=== PATIENT | female | born 1960 | race Caucasian/White ===

== ENCOUNTER 2017-06-10 11:44 | Emergency (ER) | payer OTHER ==
[~2017-06-10] VITALS: Ht 175.3 cm; Wt 179.2 kg
[~2017-06-10 11:44] MED LIST: ACTOS45 MG PO; ALLOPURINOL100 MG PO; ALLOPURINOL300 MG PO; AMARYL4 MG PO; CLARITIN10 MG PO; CONTRAVE ER 8-1 EACH PO; DICLOFENAC SODI75 MG PO; FENOFIBRATE160 MG PO; FLUOXETINE HCL20 MG PO; FLUTICASONE PRO16 GM NS; FUROSEMIDE80 MG PO; KRILL OIL 3001 EACH PO; LEVOTHYROXINE175 MCG PO; LEVOTHYROXINE200 MCG PO; LINZESS290 MCG PO; LISINOPRIL-HCT1 EACH PO; LYRICA50 MG PO; OMEPRAZOLE20 MG PO; OXYBUTYNIN CHLO10 MG PO; OXYCODONE-ACET1 EAC1 PO; PIOGLITAZONE HC45 MG PO; PIROXICAM20 MG PO; POTASSIUM CHLO20 ME1 PO; POTASSIUM GLUC500 GM MISC; SIMVASTATIN20 MG PO; SIMVASTATIN40 MG PO; TRAMADOL HCL50 MG PO; VITAMIN B-12250 MCG PO; VITAMIN D-32000 UNI1 PO; VYVANSE30 MG PO; XARELTO10 MG PO
--- OUTSIDE RECORDS SUMMARY | 2017-06-10 11:59 | XMS | Clinical Summary ---
Demographics + + + | Address | [address] | | | [place] [address] | + + + | Home Phone | | + + + | Preferred Language | Unknown | + + + | Marital Status | Single | + + + | Quaker Affiliation | Unknown | + + + | Race | White | + + + | Ethnic Group | Unknown | + + + Author + + + | Author | [facility] | + + + | Organization | [facility] | + + + | Address | Unknown | + + + | Phone | Unavailable | + + + Care Team Providers + +------+ + | Care Medical Assistant Per Diem Name | Role | Phone | + +------+ + PP | Unavailable | + +------+ + Allergies + + + +--------+ + | Active Allergy | Reactions | Severity | Noted | Comments | | | | | Date | | + + + +--------+ + | Codeine | | | | | + + + +--------+ + | Hydrocodone-Acetamin | | | | | | ophen | | | | | + + + +--------+ + Current Medications Not on file Active Problems + + + | Problem | Noted Date | + + + | Unspecified sleep apnea | 05/17/2007 | + + + + + | Overview: CPAP 10yr. 17cc | + + + + + | Morbid obesity (HCC) | 05/16/2007 | + + + | Unspecified essential hypertension | 05/16/2007 | + + + | Edema | 05/16/2007 | + + + | Unspecified asthma(493.90) | 05/16/2007 | + + + | COPD | 05/16/2007 | + + + | Unspecified chronic bronchitis (HCC) | 05/16/2007 | + + + | Esophageal reflux | 05/16/2007 | + + + | Arthropathy, unspecified, site unspecified | 05/16/2007 | + + + | Backache, unspecified | 05/16/2007 | + + + | Unspecified hypothyroidism | 05/16/2007 | + + + | Other disorders of lipoid metabolism | 05/16/2007 | + + + | Depressive disorder, not elsewhere classified | 05/16/2007 | + + + | Attention deficit disorder without mention of hyperactivity | 05/16/2007 | + + + Social History + +-------+ +--------+------+ | Tobacco Use | Types | Packs/Day | Years | Date | | | | | Used | | + +-------+ +--------+------+ | Never Assessed | | | | | + +-------+ +--------+------+ + + + | Sex Assigned at | Date Recorded | | | | + + + | Not on file | | + + + Plan of Treatment + + + + + | Health Maintenance | Due Date | Last Done | Comments | + + + + + | Hep C Ab Screening | | | | | | 0 | | | + + + + + | HIV Screening | | | | | | 5 | | | + + + + + | Pneumo 19-64 Medium | | | | | Risk (1 of 1 - | 9 | | | | PPSV23) | | | | + + + + + | Tetanus | | | | | | 9 | | | + + + + + | Cervical Cancer | | | | | Screening | 1 | | | + + + + + | Breast Cancer | | | | | Screening | 0 | | | + + + + + | Colon Cancer | | | | | Screening | 0 | | | + + + + + | Diabetes Mellitus | | 05/16/2007, 05/16/2007 | | | Screening | 1 | | | + + + + + | IMM Influenza (#1) | | | | | | 7 | | | + + + + + Results Not on filefrom Last 3 Months"
--- OUTSIDE RECORDS SUMMARY | 2017-06-10 11:59 | XMS | Clinical Summary ---
Demographics + + + | Address | [address] | | | [place] [address] | + + + | Home Phone | | + + + | Preferred Language | Unknown | + + + | Marital Status | Single | + + + | Alevism Affiliation | Unknown | + + + [...] Team Providers + +------+ + | Care Biophysics Scientist Name | Role | Phone | + [...]
[2017-06-10] MEDS ORDERED: VENTOLIN HFA18 GM INH (13:06)
[2017-06-10] MEDS ORDERED: ALBUTEROL2.5 MG/3 M INH (13:06)
[2017-06-10] MEDS ORDERED: AUGMENTIN 875-1 EACH PO (13:21)
[2017-06-10] MEDS ORDERED: METHYLPREDNISOLO4 M1 PO (13:21)
== END 2017-06-10 13:30 | disposition home or self-care (01) ==
LOC: ED 11:44
DX: J44.1 Chronic obstructive pulmonary disease with (acute) exacerbation (principal); N28.9 Disorder of kidney and ureter, unspecified; I10 Essential (primary) hypertension; E11.9 Type 2 diabetes mellitus without complications; K21.9 Gastro-esophageal reflux disease without esophagitis; E03.9 Hypothyroidism, unspecified; Z87.891 Personal history of nicotine dependence; Z88.5 Allergy status to narcotic agent; Z88.8 Allergy status to other drugs, medicaments and biological substances; Z79.899 Other long term (current) drug therapy
CPT/HCPCS: 71045; 80053; 85025; 87502; 94640; 96374; 99283; J2930

== ENCOUNTER 2017-08-10 12:27 | Emergency (ER) | payer OTHER ==
[~2017-08-10] VITALS: Ht 175.3 cm; Wt 181.4 kg
--- OUTSIDE RECORDS SUMMARY | ~2017-08-10 | XMS | Clinical Summary ---
Demographics + + + | Address | [address] | | | [place] [address] | + + + | Home Phone | | + + + | Preferred Language | Unknown | + + + | Marital Status | Single | + + + | Congregational Affiliation | 1041 | + + + | Race | Unknown | + + + | Ethnic Group | Unknown | + + + Author + + + | Author | [facility] | | | and [place] | + + + | Organization | [facility] | | | and [place] | + + + | Address | Unknown | + + + | Phone | Unavailable | + + + Support + + +---------+ + | Name | Relationship | Address | Phone | + + +---------+ + | Grace Avalos | [place] | Unknown | | + + +---------+ + Care Team Providers + +------+ + | Care Gun Stocker Name | Role | Phone | + +------+ + | Brett Olivarez DO | PP | | + +------+ + Allergies + + + + + + | Active Allergy | Reactions | Severity | Noted | Comments | | | | | Date | | + + + + + + | Benzonatate | Itching | Low | 01/07/20 | | | | | | 16 | | + + + + + + | Codeine | Itching | Low | 10/15/19 | | | | | | 16 | | + + + + + + | Hydrocodone | Itching, Anxiety | Low | 10/15/19 | | | | | | 16 | | + + + + + + Current Medications + + +-------+---------+------+------+-------+ | Prescription | Sig. | Disp. | Refills | Star | End | Statu | | | | | | t | Date | s | | | | | | Date | | | + + +-------+---------+------+------+-------+ | CONTRAVE 8-90 MG | Take 2 tablets by | | 3 | 06/0 | | Activ | | per ER tablet | mouth 2 times daily. | | | 08/29 | | e | | | | | | 16 | | | + + +-------+---------+------+------+-------+ | fenofibrate | Take 160 mg by mouth | | 11 | 05/2 | | Activ | | (LOFIBRA, TRIGLIDE) | Daily. | | | 220 | | e | | 160 mg tablet | | | | 16 | | | + + +-------+---------+------+------+-------+ | FLUoxetine | Take 80 mg by mouth | | 3 | 05/2 | | Activ | | (PROZAC) 20 mg | Daily. | | | 05/01 | | e | | capsule | | | | 16 | | | + + +-------+---------+------+------+-------+ | allopurinol | Take 300 mg by mouth | | 10 | 06/0 | | Activ | | (ZYLOPRIM) 300 mg | Daily. | | | 10/29 | | e | | tablet | | | | 16 | | | + + +-------+---------+------+------+-------+ | pioglitazone | Take 45 mg by mouth | | 11 | 06/0 | | Activ | | (ACTOS) 45 mg tablet | Daily. | | | 07/30 | | e | | | | | | 16 | | | + + +-------+---------+------+------+-------+ | simvastatin | Take 40 mg by mouth | | 12 | 06/0 | | Activ | | (ZOCOR) 40 mg tablet | nightly. | | | 4/20 | | e | | | | | | 16 | | | + + +-------+---------+------+------+-------+ | LINZESS 290 MCG | Take 290 mcg by | | 12 | 09/10 | | Activ | | capsule | mouth. Every other | | | 2/20 | | e | | | day | | | 16 | | | + + +-------+---------+------+------+-------+ | FREESTYLE LITE | | | 12 | 05/2 | | Activ | | strip | | | | 20 | | e | | | | | | 16 | | | + + +-------+---------+------+------+-------+ | VENTOLIN HFA 108 | Inhale 2 puffs into | | 11 | 06/2 | | Activ | | (90 BASE) MCG/ACT | the lungs every 6 | | | 6/20 | | e | | inhaler | hours as needed. | | | 16 | | | + + +-------+---------+------+------+-------+ | B Complex-C (SUPER | Take by mouth | | | | | Activ | | B COMPLEX PO) | Daily. | | | | | e | + + +-------+---------+------+------+-------+ | cholecalciferol | Take 6,000 Units by | | | | | Activ | | (VITAMIN D-3) 2,000 | mouth Daily. | | | | | e | | units capsule | | | | | | | + + +-------+---------+------+------+-------+ | Potassium | Take 595 mg by mouth | | | | | Activ | | Gluconate 595 MG | Daily. | | | | | e | | TABS | | | | | | | + + +-------+---------+------+------+-------+ | OMEGA-3 KRILL OIL | Take 1,000 mg by | | | | | Activ | | PO | mouth Daily. | | | | | e | + + +-------+---------+------+------+-------+ | ascorbic acid | Take 500 mg by mouth | | | | | Activ | | (VITAMIN C) 500 mg | Daily. | | | | | e | | tablet | | | | | | | + + +-------+---------+------+------+-------+ | furosemide (LASIX) | Take 80 mg by mouth | | | | | Activ | | 80 mg tablet | Daily. | | | | | e | + + +-------+---------+------+------+-------+ | Omeprazole | Take 20 mg by mouth | | | | | Activ | | Magnesium (PRILOSEC | Daily. | | | | | e | | OTC PO) | | | | | | | + + +-------+---------+------+------+-------+ | VYVANSE 30 MG | take 1 capsule by | | 0 | 08/3 | | Activ | | capsule | mouth once daily | | | 05/01 | | e | | | | | | 16 | | | + + +-------+---------+------+------+-------+ | | Take 1 tablet by | | | 12/11 | | Activ | | lisinopril-hydrochlo | mouth Daily. | | | 020 | | e | | rothiazide | | | | 16 | | | | (PRINZIDE,ZESTORETIC | | | | | | | | ) 20-12.5 MG per | | | | | | | | tablet | | | | | | | + + +-------+---------+------+------+-------+ | oxygen | Inhale 2 L into the | | | | | Activ | | | lungs nightly. | | | | | e | + + +-------+---------+------+------+-------+ | LORazepam (ATIVAN) | | | 3 | 10/2 | | Activ | | 1 mg tablet | | | | 0/20 | | e | | | | | | 16 | | | + + +-------+---------+------+------+-------+ | piroxicam | Take 20 mg by mouth | | | | | Activ | | (FELDENE) 20 MG | Daily. | | | | | e | | capsule | | | | | | | + + +-------+---------+------+------+-------+ | | | | 3 | 11/1 | | Activ | | nystatin-triamcinolo | | | | 7/20 | | e | | ne (MYCOLOG II) | | | | 16 | | | | cream | | | | | | | + + +-------+---------+------+------+-------+ | levothyroxine | | | 4 | 08/0 | | Activ | | (SYNTHROID) 150 mcg | | | | 1/20 | | e | | tablet | | | | 17 | | | + + +-------+---------+------+------+-------+ | folic acid 1 mg | | | 4 | 08/0 | | Activ | | tablet | | | | 1/20 | | e | | | | | | 17 | | | + + +-------+---------+------+------+-------+ Active Problems + + + | Problem | Noted Date | + + + | Status post right hip replacement | 01/08/2016 | + + + | Primary osteoarthritis of right hip | 01/08/2016 | + + + | H/O DOYLE Total hip arthroplasty, left - 2008 | 01/07/2016 | + + + | H/O Hysterectomy | 01/07/2016 | + + + | Class II, BMI 35-39 | 01/07/2016 | + + + | Metabolic syndrome X | 01/07/2016 | + + + | Gout | 01/07/2016 | + + + | Diabetes mellitus, type II - ORAL Control | 01/07/2016 | + + + | GERD (gastroesophageal reflux disease) | 01/07/2016 | + + + | H/O Anemia | 01/07/2016 | + + + | H/O Fracture of left shoulder | 01/07/2016 | + + + | H/O Sleep apnea | 01/07/2016 | + + + | Hypothyroid | 12/24/2015 | + + + | Pure hypercholesterolemia | 12/24/2015 | + + + | Hypertension | | + + + | Asthma | | + + + | COPD (chronic obstructive pulmonary disease) (HCC) | | + + + Immunizations + + + + | Name | Dates Previously Given | Next Due | + + + + | PNEUMOCOCCAL | 01/09/2016 | | | POLYSACCHARIDE | | | | 23-VALENT (PPSV23) | | | + + + + Social History + + + +--------+ + | Tobacco Use | Types | Packs/Day | Years | Date | | | | | Used | | + + + +--------+ + | Former Smoker | Cigarettes | | 39 | Quit: 10/09/2015 | + + + +--------+ + + +---+---+---+ | Smokeless Tobacco: | | | | | Never Used | | | | + +---+---+---+ + + +---------+ + | Alcohol Use | Drinks/We | oz/Week | Comments | | | ek | | | + + +---------+ + | No | 0 | 0.0 | | | | Standard | | | | | drinks or | | | | | | | | | | equivalen | | | | | t | | | + + +---------+ + + + + | Sex Assigned at | Date Recorded | | | | + + + | Not on file | | + + + Last Filed Vital Signs + + + + | Vital Sign | Reading | Time Taken | + + + + | Blood Pressure | 128/57 | 01/10/2016809 PDT | + + + + | Pulse | 69 | 01/10/2016809 PDT | + + + + | Temperature | 36 C (96.8 F) | 12/03/2016 1344 PDT | + + + + | Respiratory Rate | 16 | 01/10/2016809 PDT | + + + + | Oxygen Saturation | 93% | 01/10/2016809 PDT | + + + + | Inhaled Oxygen | - | - | | Concentration | | | + + + + | Weight | 125.2 kg (276 lb) | 12/03/20161343 PDT | + + + + | Height | 177.8 cm (5' 10") | 12/03/20161343 PDT | + + + + | Body Mass Index | 39.6 | 12/03/20161343 PDT | + + + + Plan of Treatment + + + + + | Health Maintenance | Due Date | Last Done | Comments | + + + + + | Hepatitis C | | | | | Screening | 0 | | | + + + + + | Diabetic Eye Exam | | | | | (Bi-Annually) | 8 | | | + + + + + | Diabetic Foot Exam | | | | | | 8 | | | + + + + + | Hemoglobin A1c Q3 | | | | | Months | 8 | | | + + + + + | Vaccine: | | | | | Dtap/Tdap/Td (1 - | 9 | | | | Tdap) | | | | + + + + + | BREAST CANCER | | | | | SCREENING (MAMM Q2 | 0 | | | | YEARS 50-74) | | | | + + + + + | COLON CANCER | | | | | SCREENING | 0 | | | | (COLONOSCOPY EVERY | | | | | 10 YEARS 50-75) | | | | + + + + + | Vaccine: Influenza | | | | | (Season Ended) | 8 | | | + + + + + | Vaccine: | Completed | 01/09/2016 | | | Pneumococcal 19-64 | | | | | (PPSV23 only) Medium | | | | | Risk | | | | + + + + + Implants + +--------+--------+ +--------+--------+--------+ | Implanted | Type | Area | Manufacture | Device | Expira | Model | | | | | r | | tion | / | | | | | | Identi | Date | Serial | | | | | | fier | | / Lot | + +--------+--------+ +--------+--------+--------+ | Imp Hip Lnr Dbl Mob Hx 28x50 | Generi | Right: | [employer] | | 07/07/ | 01.26. | | - [id number]: Qty: 1 | c | Hip | INC - MDTA | | 2020 | 2850MH | | on 01/08/2016 by Lj, | | | | | | C / | | Feroz Sprague MD | | | | | | /[id number] | | | | | | | | 1 | + +--------+--------+ +--------+--------+--------+ | Imp Stem Std Amis Lira 03/25 | Generi | Right: | [employer] | | 03/24/ | 01.18. | | Sz6 - [id number]: | c | Hip | INC - MDTA | | 2019 | 136 / | | Qty: 1 on 01/08/2016 by | | | | | | /[id number] | | Feroz aClhoun MD | | | | | | 2 | + +--------+--------+ +--------+--------+--------+ | Imp Hip Fem Hd Ceram 28mm Szs | Generi | Right: | [employer] | | 11/29/ | 01.29. | | - [id number]: Qty: 1 | c | Hip | INC - MDTA | | 2019 | 201 / | | on 01/08/2016 by Lj, | | | | | | /[id number] | | Feroz Sprague MD | | | | | | 0 | + +--------+--------+ +--------+--------+--------+ | Liner Dme Implanted: Qty: 1 | | Right: | [employer] | | 06/22/ | 32. | | on 01/08/2016 by Lj, | | Hip | INC - MDTA | | 2020 | 150MB | | Feroz Sprague MD | | | | | | / | | | | | | | | /[id number] | | | | | | | | B | + +--------+--------+ +--------+--------+--------+ Results Not on filefrom Last 3 Months Insurance + +--------+ +--------+ +---------+ | Payer | Benefi | Subscriber | Type | Phone | Address | | | t Plan | ID | | | | | | / | | | | | | | Group | | | | | + +--------+ +--------+ +---------+ | [employer] | MODA | [phone] | Medica | [phone] | | MEDICAID HMO | HEALTH | | id | 9821 | | | | MDCD | | | | | | | [place] | | | | | + +--------+ +--------+ +---------+ + +--------+ +--------+ + + | Guarantor Name | Accoun | Relation to | Date | Phone | Billing Address | | | t Type | Patient | of | | | | | | | | | | + +--------+ +--------+ + + | JAYLYN AVALOS | Person | Self [birth year] Home: | [address] | | [place] | [place] | | 1961 | [phone] | [place] | | | [place] | | | [phone] | + +--------+ +--------+ + +
--- OUTSIDE RECORDS SUMMARY | ~2017-08-10 | XMS | Clinical Summary ---
Demographics + + + | Address | [address] | | | [place] [address] | + + + | Home Phone | | + + + | Preferred Language | Unknown | + + + | Marital Status | Single | + + + | Druze Affiliation | 1041 | + + + | Race | Unknown | + + + | Ethnic Group | Unknown | + + + Author + + + | Author | [facility] | | | and [place] | + + + | Organization | [facility] | | | and [place] | [...] Team Providers + +------+ + | Care Filer And Sander Name | Role | Phone | + [...] | 07/07/ | 01.26. | | - [id number]: Qty: 1 | c | Hip | INC - MDTA | | 2020 | 2850MH | | on 01/08/2016 by Lj, | | | | | | C / | | Feroz Sprague MD | | | | | | /[id number] | | | | | | | | 1 | + +--------+--------+ +--------+--------+--------+ | Imp Stem Std Amis Lira 03/25 | Generi | Right: | [employer] | | 03/24/ | 01.18. | | Sz6 - [id number]: | c | Hip | INC - MDTA | | 2019 | 136 / | | Qty: 1 on 01/08/2016 by | | | | | | /[id number] | | Feroz Calhoun MD | | | | | | 2 | + +--------+--------+ +--------+--------+--------+ | Imp Hip Fem Hd Ceram 28mm Szs | Generi | Right: | [employer] | | 11/29/ | 01.29. | | - [id number]: Qty: 1 | c | Hip | INC - MDTA | | 2019 | 201 / | | on 01/08/2016 by Lj, | | | | | | /[id number] | | Feroz Sprague MD | | [...] | | | | | | | /[id number] | | | | | | | [...] | MODA | [phone] | Medica | [phone] | | | MEDICAID HMO | HEALTH [...] | | 1961 | [phone] | [place] | | | [place] | | | [phone] | [phone] | + +--------+ +--------+ + +
[~2017-08-10 12:27] MED LIST changes: +ALBUTEROL2.5 MG/3 M INH; +AUGMENTIN 875-1 EACH PO; +METHYLPREDNISOLO4 M1 PO; +VENTOLIN HFA18 GM INH
== END 2017-08-10 14:05 | disposition home or self-care (01) ==
LOC: ED 12:27
DX: I87.8 Other specified disorders of veins (principal); E11.9 Type 2 diabetes mellitus without complications; J44.9 Chronic obstructive pulmonary disease, unspecified; K21.9 Gastro-esophageal reflux disease without esophagitis; E03.9 Hypothyroidism, unspecified; Z79.899 Other long term (current) drug therapy; Z87.891 Personal history of nicotine dependence; Z88.5 Allergy status to narcotic agent; Z88.8 Allergy status to other drugs, medicaments and biological substances
CPT/HCPCS: 71045; 99283

== ENCOUNTER 2017-08-18 16:09 | Emergency (ER) | payer OTHER ==
[~2017-08-18] VITALS: Ht 175.3 cm; Wt 181.4 kg
[2017-08-18] MEDS ORDERED: CONTRAVE ER 8-1 EACH PO (16:22)
[2017-08-18] MEDS ORDERED: LIOTHYRONINE S25 MCG PO (16:24)
[2017-08-18] MEDS ORDERED: ULTRAM50 MG PO (16:25)
[2017-08-18] MEDS ORDERED: FOLIC ACID1 MG PO (16:26)
[2017-08-18] MEDS ORDERED: ZESTORETIC 20-1 EACH PO (16:26)
== END 2017-08-18 16:33 | disposition home or self-care (01) ==
LOC: ED 16:09
DX: M79.675 Pain in left toe(s) (principal)

== ENCOUNTER 2017-11-19 12:25 | Emergency (ER) | payer OTHER ==
[~2017-11-19] VITALS: Ht 175.3 cm; Wt 186.9 kg
[~2017-11-19 12:25] MED LIST changes: +FOLIC ACID1 MG PO; +LIOTHYRONINE S25 MCG PO; +ULTRAM50 MG PO; +ZESTORETIC 20-1 EACH PO
[2017-11-19] MEDS ORDERED: ZITHROMAX250 MG PO (14:46)
[2017-11-19] MEDS ORDERED: PREDNISONE20 MG PO (14:47)
--- NOTE | 2017-11-20 19:47 | EKG ---
[facility] [address] [place] [address] Signed Poor data quality, interpretation may be adversely affected Sinus tachycardia Abnormal ECG No previous ECGs available Confirmed by JI NELSON MD ([id number]) on 11/20/2017 7:46:52 PM Electronically Signed By: JI NELSON MD 11/20/17 1947 PATIENT NAME: ELIZABETH ESTRELLA Electrocardiogram DATE OF : 58 PHYSICIAN: JI NELSON MD REPORT #: [id number] REPORT IS CONFIDENTIAL AND NOT TO BE RELEASED WITHOUT AUTHORIZATION
== END 2017-11-19 15:02 | disposition home or self-care (01) ==
LOC: ED 12:25
DX: J44.1 Chronic obstructive pulmonary disease with (acute) exacerbation (principal); I10 Essential (primary) hypertension; E11.9 Type 2 diabetes mellitus without complications; E03.9 Hypothyroidism, unspecified; Z87.891 Personal history of nicotine dependence; Z88.5 Allergy status to narcotic agent; Z88.8 Allergy status to other drugs, medicaments and biological substances; Z79.899 Other long term (current) drug therapy
CPT/HCPCS: 71045; 80053; 82803; 84484; 85025; 85379; 93005; 93010; 94640; 96365; 96375; 99285; J0456; J2930

== ENCOUNTER 2018-06-11 14:59 | Emergency (ER) | payer OTHER ==
[~2018-06-11] VITALS: Ht 175.3 cm; Wt 186.9 kg
[~2018-06-11 14:59] MED LIST changes: +PREDNISONE20 MG PO; +ZITHROMAX250 MG PO
--- OUTSIDE RECORDS SUMMARY | 2018-06-11 15:02 | XMS ---
PreManage Notification: ELIZABETH ESTRELLA Security Scaffold Builder Events No recent Security Events currently on file CRITERIA MET - Group Notification - [facility] - Has Care Guidelines - PDMP CARE PROVIDERS QUINN PATRICIO Family Medicine: Sports Medicine 12/08/2017-Current PHONE: Unknown Cristina has no Care Guidelines for this patient. Care History Medical/Surgical 12/08/2017 [facility] HISTORY:\T\nbsp; COPD/ IRRITABLE BOWEL/ ARTHRITIS/ HTN/ DM2/ GERD/ PERICARDITIS/ HYPOTHYROID E.D. VISIT COUNT (12 MO.) 4 [facility] TOTAL 4 NOTE: Visits indicate total known visits. ED/UCC VISIT TRACKING (12 MO.) 06/11/2018 15:01 [facility] TYPE: Emergency COMPLAINT: - FALL 11/19/2017 12:26 [facility] TYPE: Emergency COMPLAINT: - SOB DIAGNOSES: - Other terminal makeup operator (current) drug therapy - Essential (primary) hypertension - Type 2 diabetes mellitus without complications - Chronic obstructive pulmonary disease with (acute) exacerbation - Allergy status to narcotic agent status - Shortness of breath - Hypothyroidism, unspecified - Personal history of nicotine dependence - Allergy status to other drugs, medicaments and biological substances status 08/18/2017 16:09 [facility] TYPE: Emergency COMPLAINT: - TOE NAIL PROBLEM DIAGNOSES: - Pain in left toe(s) 08/10/2017 12:[address] [facility] [place] TYPE: Emergency COMPLAINT: - L R LEG SWELLING DIAGNOSES: - Hypothyroidism, unspecified - Other care home (current) drug therapy - Gastro-esophageal reflux disease without esophagitis - Type 2 diabetes mellitus without complications - Allergy status to other drugs, medicaments and biological substances status - Other specified soft tissue disorders - Chronic obstructive pulmonary disease, unspecified - Personal history of nicotine dependence - Other specified disorders of veins - Allergy status to narcotic agent status INPATIENT VISIT TRACKING (12 MO.) No inpatient visits to display in this time frame [email or web address]
--- NOTE | 2018-06-12 10:47 | CONS ---
[facility] [address] [place], [place] [address] Signed DATE OF CONSULTATION: 06/11/2018 HISTORY OF PRESENT ILLNESS: Ms. Avalos is a 57-year-old white female, who was doing well until about 2 this afternoon when she had a ground level fall. She had immediate onset of pain in the right shoulder, came to the emergency room where a dislocated shoulder was diagnosed by x-ray. Orthopedic consultation was requested to assist in closed reduction. After explaining the proposed procedure to the patient, she was comfortable with proceeding. The patient was gently sedated by the Anesthesia Service. Once we appeared to have an adequate level of sedation, we were able to reduce the shoulder fairly easily with longitudinal traction, external and medial rotation. She was placed in a sling and a single AP x-ray was taken, which confirmed a concentric reduction with no apparent fractures. She could be discharged to home. She should wear the sling and follow up in 2-3 weeks with the orthopedic clinic. MD LURDES Banda/MARTIL /[id number] Copies: ~ Electronically Signed By: MICHEL DALAL MD 06/12/18 1047 PATIENT NAME: ELIZABETH AVALOS CONSULTATION DATE OF : 58 REPORT #: [id number] PHYSICIAN: MICHEL DALAL MD PCP: QUINN PATRICIO DO REPORT IS CONFIDENTIAL AND NOT TO BE RELEASED WITHOUT AUTHORIZATION
== END 2018-06-11 17:51 | disposition home or self-care (01) ==
LOC: ED 14:59
PROC: 0RSJXZZ Reposition Right Shoulder Joint, External Approach (ICD-10-PCS; principal; 2018-06-11)
DX: S43.014A Anterior dislocation of right humerus, initial encounter (principal); J44.9 Chronic obstructive pulmonary disease, unspecified; I10 Essential (primary) hypertension; E11.9 Type 2 diabetes mellitus without complications; K21.9 Gastro-esophageal reflux disease without esophagitis; E03.9 Hypothyroidism, unspecified; Z90.710 Acquired absence of both cervix and uterus; Z88.5 Allergy status to narcotic agent; Z88.8 Allergy status to other drugs, medicaments and biological substances; Z79.899 Other long term (current) drug therapy; W00.1XXA Fall from stairs and steps due to ice and snow, initial encounter
CPT/HCPCS: 23650; 73020; 73030; 73060; 99156; 99157; 99283-25; J1170; J2250; J2405; J2704

== ENCOUNTER 2020-02-25 20:32 | Emergency (ER) | payer OTHER ==
[~2020-02-25] VITALS: Ht 175.3 cm; Wt 174.6 kg
--- OUTSIDE RECORDS SUMMARY | 2020-02-25 20:34 | XMS ---
PreManage Notification: ELIZABETH ESTRELLA Security Automobile Salesman Events No recent Security Events currently on file CRITERIA MET - Group Notification - PDMP - [facility] - 2 Visits in 30 Days CARE PROVIDERS ROBERT AGUILAR Internal Medicine 06/13/2018-Current PHONE: [phone] QUINN PATRICIO Family Medicine: Sports Medicine 12/08/2017-Current PHONE: Unknown Cristina has no Care Guidelines for this patient. Care History Medical/Surgical 06/13/2018 [facility] - Patient is currently established with [facility]. If patient is seen in the ED during business hours. Please contact CHWs at [facility]. Care Recommendation: This patient has had 5 or more Emergency Department visits in the last 12 months.\T\nbsp; Patient requires education on the scope and purpose of the ED as an acute care provider not a Primary Care Provider and should not be utilized for chronic conditions.\T\nbsp; These are guidelines and the provider should exercise clinical judgment when providing care. 12/08/2017 [facility] HISTORY:\T\nbsp; COPD/ IRRITABLE BOWEL/ ARTHRITIS/ HTN/ DM2/ GERD/ PERICARDITIS/ HYPOTHYROID E.DHyun VISIT COUNT (12 MO.) 2 [facility] TOTAL 2 NOTE: Visits indicate total known visits. ED/UCC VISIT TRACKING (12 MO.) 02/25/2020 20:32 [facility] TYPE: Emergency COMPLAINT: - ABD PAIN 02/25/2020 16:16 [facility] TYPE: Emergency COMPLAINT: - CONSTIPATION INPATIENT VISIT TRACKING (12 MO.) No inpatient visits to display in this time frame [email or web address]
[2020-02-25] MEDS ORDERED: VICTOZA 3-0.6 MG/0.1 SUB-Q (20:40)
[2020-02-25] MEDS ORDERED: LINZESS290 MCG PO (21:50)
== END 2020-02-25 21:57 | disposition home or self-care (01) ==
LOC: ED 20:32
DX: K59.00 Constipation, unspecified (principal); I10 Essential (primary) hypertension; E11.9 Type 2 diabetes mellitus without complications; K21.9 Gastro-esophageal reflux disease without esophagitis; E03.9 Hypothyroidism, unspecified; Z88.5 Allergy status to narcotic agent; Z88.8 Allergy status to other drugs, medicaments and biological substances; Z79.899 Other long term (current) drug therapy
CPT/HCPCS: 99283

== ENCOUNTER 2020-07-26 13:08 | Emergency (ER) | payer OTHER ==
[~2020-07-26] VITALS: Ht 175.3 cm; Wt 174.6 kg
[~2020-07-26 13:08] MED LIST changes: +VICTOZA 3-0.6 MG/0.1 SUB-Q
--- OUTSIDE RECORDS SUMMARY | 2020-07-26 13:12 | XMS ---
PreManage Notification: ELIZABETH ESTRELLA Security Clay Structure Builder And Servicer Events No recent Security Events currently on file CRITERIA MET - Group Notification - PDMP CARE PROVIDERS ROBERT AGUILAR Internal Medicine 06/13/2018-Current PHONE: [phone] QUINN PATRICIO Family Medicine: Sports Medicine 12/08/2017-Current PHONE: Unknown Cristina has no Care Guidelines for this patient. Care History Medical/Surgical 06/13/2018 [facility] - Patient is currently established with [facility]. If patient is seen in the ED during business hours. Please contact CHWs at [facility]. Care Recommendation: This patient has had 5 or more Emergency Department visits in the last 12 months.\T\nbsp; Patient requires education on the scope and purpose of the ED as an acute care provider not a Primary Care Provider and should not be utilized for chronic conditions.\T\nbsp; These are guidelines and the provider should exercise clinical judgment when providing care. 12/08/2017 [facility] HISTORY:\T\nbsp; COPD/ IRRITABLE BOWEL/ ARTHRITIS/ HTN/ DM2/ GERD/ PERICARDITIS/ HYPOTHYROID E.DHyun VISIT COUNT (12 MO.) 3 [facility] TOTAL 3 NOTE: Visits indicate total known visits. ED/UCC VISIT TRACKING (12 MO.) 07/26/2020 13:09 [facility] TYPE: Emergency COMPLAINT: - ALLERGIC REATION 02/25/2020 20:32 [facility] TYPE: Emergency COMPLAINT: - ABD PAIN DIAGNOSES: - Constipation, unspecified - Allergy status to narcotic agent - Allergy status to other drugs, medicaments and biological substances - Allergy status to other drugs, medicaments and biological substances - Allergy status to narcotic agent - Hypothyroidism, unspecified - Gastro-esophageal reflux disease without esophagitis - Type 2 diabetes mellitus without complications - Other terminal gauger (current) drug therapy - Essential (primary) hypertension 02/25/2020 16:16 [facility] TYPE: Emergency COMPLAINT: - CONSTIPATION INPATIENT VISIT TRACKING (12 MO.) No inpatient visits to display in this time frame [email or web address]
[2020-07-26] MEDS ORDERED: LATUDA40 MG PO (13:33)
[2020-07-26] MEDS ORDERED: CYMBALTA30 MG PO (13:33)
[2020-07-26] MEDS ORDERED: EPIN0.3P IM (15:56)
== END 2020-07-26 16:14 | disposition home or self-care (01) ==
LOC: ED 13:08
DX: T78.3XXA Angioneurotic edema, initial encounter (principal); K14.8 Other diseases of tongue; J44.9 Chronic obstructive pulmonary disease, unspecified; I10 Essential (primary) hypertension; E11.9 Type 2 diabetes mellitus without complications; K21.9 Gastro-esophageal reflux disease without esophagitis; E03.9 Hypothyroidism, unspecified; F17.200 Nicotine dependence, unspecified, uncomplicated; Z88.8 Allergy status to other drugs, medicaments and biological substances; Z88.5 Allergy status to narcotic agent; Z79.899 Other long term (current) drug therapy
CPT/HCPCS: 96374; 99284-25

== ENCOUNTER 2020-12-21 05:18 | Emergency (ER) | payer OTHER ==
[~2020-12-21] VITALS: Ht 175.3 cm; Wt 177.3 kg
[~2020-12-21 05:18] MED LIST changes: +ADVAIR HFA 230-12 GM INH; +CEFPODOXIME PR200 MG PO; +CYMBALTA30 MG PO; +EPIN0.3P IM; +LATUDA40 MG PO; +LEVOTHYROXINE300 MCG PO; +LIOTHYRONINE SO5 MCG PO; +METOPROLOL SUC100 MG PO; +MONTELUKAST SOD10 MG PO; -OMEPRAZOLE20 MG PO; +PIOGLITAZONE HC15 MG PO; -POTASSIUM GLUC500 GM MISC; +POTASSIUM99 M1 PO; +PRAVASTATIN SOD10 MG PO; +PRILOSEC OTC20 MG PO; +PROZAC40 MG PO; +SPIRIVA18 MCG INH; -VITAMIN D-32000 UNI1 PO; +VITAMIN D350 MC3 PO; +VYVANSE60 MG PO
--- OUTSIDE RECORDS SUMMARY | 2020-12-21 05:55 | XMS ---
PreManage Notification: ELIZABETH ESTRELLA Security Signal Worker Events No recent Security Events currently on file CRITERIA MET - Group Notification - PDMP CARE PROVIDERS ROBERT AGUILAR Internal Medicine 07/29/2020-Current PHONE: [phone] QUINN PATRICIO Family Medicine: Sports Medicine 12/08/2017-Current PHONE: [phone] Cristina has no Care Guidelines for this patient. Care History Medical/Surgical 06/13/2018 [facility] - Patient is currently established with [facility]. If patient is seen in the ED during business hours. Please contact CHWs at [facility]. Care Recommendation: This patient has had 5 or more Emergency Department visits in the last 12 months.\T\nbsp; Patient requires education on the scope and purpose of the ED as an acute care provider not a Primary Care Provider and should not be utilized for chronic conditions.\T\nbsp; These are guidelines and the provider should exercise clinical judgment when providing care. 12/08/2017 [facility] HISTORY:\T\nbsp; COPD/ IRRITABLE BOWEL/ ARTHRITIS/ HTN/ DM2/ GERD/ PERICARDITIS/ HYPOTHYROID E.D. VISIT COUNT (12 MO.) 5 [facility] TOTAL 5 NOTE: Visits indicate total known visits. ED/UCC VISIT TRACKING (12 MO.) 12/21/2020 05:19 [facility] [place] TYPE: Emergency COMPLAINT: - LT HIP PAIN 08/05/2020 11:[facility] [place] TYPE: Emergency COMPLAINT: - DIFFICULTY BREATHING 07/26/2020 13:09 [facility] [place] TYPE: Emergency COMPLAINT: - ALLERGIC REATION DIAGNOSES: - Other terminal superintendent (current) drug therapy - Type 2 diabetes mellitus without complications - Allergy status to narcotic agent - Angioneurotic edema, initial encounter - Chronic obstructive pulmonary disease, unspecified - Gastro-esophageal reflux disease without esophagitis - Nicotine dependence, unspecified, uncomplicated - Other diseases of tongue - Hypothyroidism, unspecified - Essential (primary) hypertension - Allergy status to other drugs, medicaments and biological substances 02/25/2020 20:32 [facility] [place] TYPE: Emergency [...] 2 diabetes mellitus without complications - Other fdc (current) drug therapy - Essential (primary) hypertension 02/25/2020 16:16 [facility] [place] TYPE: Emergency COMPLAINT: - CONSTIPATION INPATIENT VISIT TRACKING (12 MO.) 08/05/2020 14:22 [facility] [place] TYPE: Medical Surgical COMPLAINT: - COPD DIAGNOSES: - Attention-deficit hyperactivity disorder, unspecified type - Chronic obstructive pulmonary disease with (acute) exacerbation - Other terminal superintendent (current) drug therapy - Allergy status to other drugs, medicaments and biological substances - Hypothyroidism, unspecified - Hypertensive heart disease with heart failure - Interstitial pulmonary disease, unspecified - Unspecified mood [affective] disorder - Chronic diastolic (congestive) heart failure - Pulmonary hypertension, unspecified - Type 2 diabetes mellitus without complications - group home (current) use of oral hypoglycemic drugs - Allergy status to narcotic agent - Acute and chronic respiratory failure with hypoxia - Hyperuricemia without signs of inflammatory arthritis and tophaceous disease [email or web address]
[2020-12-21] MEDS ORDERED: PERCOCET 7.5-31 EACH PO (08:27)
== END 2020-12-21 10:35 | disposition home or self-care (01) ==
LOC: ED 05:18
PROC: 0SWB0JZ Revision of Synthetic Substitute in Left Hip Joint, Open Approach (ICD-10-PCS; principal; 2020-12-21)
DX: T84.021A Dislocation of internal left hip prosthesis, initial encounter (principal); J44.9 Chronic obstructive pulmonary disease, unspecified; M16.0 Bilateral primary osteoarthritis of hip; I10 Essential (primary) hypertension; E11.9 Type 2 diabetes mellitus without complications; K21.9 Gastro-esophageal reflux disease without esophagitis; J45.909 Unspecified asthma, uncomplicated; E03.9 Hypothyroidism, unspecified; I31.9 Disease of pericardium, unspecified; G47.30 Sleep apnea, unspecified; F17.200 Nicotine dependence, unspecified, uncomplicated; Z88.5 Allergy status to narcotic agent; Z88.8 Allergy status to other drugs, medicaments and biological substances; Z79.84 Long term (current) use of oral hypoglycemic drugs; Z79.810 Long term (current) use of selective estrogen receptor modulators (SERMs); Z79.899 Other long term (current) drug therapy
CPT/HCPCS: 27265; 71045; 73501; 73502; 80053; 85025; 99152; 99153; 99284-25; J2704; U0003

== ENCOUNTER 2020-12-22 15:12 | Emergency (ER) | payer OTHER ==
[~2020-12-22] VITALS: Ht 175.3 cm; Wt 177.3 kg
[~2020-12-22 15:12] MED LIST changes: +PERCOCET 7.5-31 EACH PO
--- OUTSIDE RECORDS SUMMARY | 2020-12-22 15:14 | XMS ---
PreManage Notification: ELIZABETH ESTRELLA Security Contact Center Rep Events No recent Security Events currently on file CRITERIA MET - [facility] - 2 Visits in 30 Days - Group Notification - PDMP CARE PROVIDERS ROBERT AGUILAR Internal Medicine 07/29/2020-Current PHONE: [phone] QUINN PATRICIO Family Medicine: Sports Medicine 12/08/2017-Current PHONE: [phone] Cristina has no Care Guidelines for this patient. Care History Medical/Surgical 06/13/2018 [facility] - Patient is currently established with [facility]. If patient is seen in the ED during business hours. Please contact CHWs at [facility]. Care Recommendation: This patient has had 5 or more Emergency Department visits in the last 12 months.\T\nbsp; Patient requires education on the scope and purpose of the ED as an acute care provider not a Primary Care Provider and should not be utilized for chronic conditions.\T\nbsp; These are guidelines and the provider should exercise clinical judgment when providing care. 12/08/2017 [facility] HISTORY:\T\nbsp; COPD/ IRRITABLE BOWEL/ ARTHRITIS/ HTN/ DM2/ GERD/ PERICARDITIS/ HYPOTHYROID [facility] NOTE: Visits indicate total known visits. ED/UCC VISIT TRACKING (12 MO.) 12/22/2020 15:13 [facility] [place] TYPE: Emergency COMPLAINT: - L HIP PAIN 12/21/2020 05:19 [facility] [place] TYPE: Emergency COMPLAINT: - LT HIP PAIN 08/05/2020 11:21 [facility] [place] TYPE: Emergency COMPLAINT: - DIFFICULTY BREATHING 07/26/2020 13:09 [facility] [place] TYPE: Emergency COMPLAINT: - ALLERGIC REATION DIAGNOSES: - Other terminal press operator (current) drug therapy - Type 2 diabetes [...] 2 diabetes mellitus without complications - Other group home (current) drug therapy - Essential (primary) hypertension 02/25/2020 16:16 [facility] [place] TYPE: Emergency COMPLAINT: - CONSTIPATION INPATIENT VISIT TRACKING (12 MO.) 08/05/2020 14:22 [facility] [place] TYPE: Medical Surgical COMPLAINT: - COPD DIAGNOSES: - Attention-deficit hyperactivity disorder, unspecified type - Chronic obstructive pulmonary disease with (acute) exacerbation - Other terminal press operator (current) drug therapy - Allergy status to other drugs, medicaments and biological substances - Hypothyroidism, unspecified - Hypertensive heart disease with heart failure - Interstitial pulmonary disease, unspecified - Unspecified mood [affective] disorder - Chronic diastolic (congestive) heart failure - Pulmonary hypertension, unspecified - Type 2 diabetes mellitus without complications - assisted (current) use of oral hypoglycemic drugs - Allergy status to narcotic agent - Acute and chronic respiratory failure with hypoxia - Hyperuricemia without signs of inflammatory arthritis and tophaceous disease [email or web address]
--- NOTE | 2020-12-23 15:20 | EKG ---
[facility] [address] [place], [place] [address] Signed Normal sinus rhythm Low voltage QRS Borderline ECG When compared with ECG of 05-AUG-2020 15:44, No significant change was found Confirmed by CHARITO ECKERT MD ([id number]) on 12/23/2020 3:20:09 PM Electronically Signed By: CHARITO ECKERT MD 12/23/20 1520 PATIENT NAME: ELIZABETH ESTRELLA Electrocardiogram DATE OF : 58 PHYSICIAN: CHARITO ECKERT MD REPORT #: [id number] REPORT IS CONFIDENTIAL AND NOT TO BE RELEASED WITHOUT AUTHORIZATION
== END 2020-12-23 09:12 | disposition short-term general hospital (02) ==
LOC: ED 15:12
DX: M24.452 Recurrent dislocation, left hip (principal); Z20.822 Contact with and (suspected) exposure to COVID-19; J44.9 Chronic obstructive pulmonary disease, unspecified; I10 Essential (primary) hypertension; E11.9 Type 2 diabetes mellitus without complications; K21.9 Gastro-esophageal reflux disease without esophagitis; E03.9 Hypothyroidism, unspecified; G47.30 Sleep apnea, unspecified; F17.200 Nicotine dependence, unspecified, uncomplicated; Z88.8 Allergy status to other drugs, medicaments and biological substances; Z88.5 Allergy status to narcotic agent; Z79.899 Other long term (current) drug therapy
CPT/HCPCS: 27265; 51702; 72170; 73501; 80053; 85025; 85610; 85730; 93005; 93010; 99152; 99153; 99285-25; C9803; J1170; J2250; J2704; U0003

== ENCOUNTER 2021-08-22 07:45 | Day surgery (SDC) | payer OTHER ==
[~2021-08-22] VITALS: Ht 175.3 cm; Wt 175.0 kg
[~2021-08-22 07:45] MED LIST changes: +NORVASC5 MG PO
--- NOTE | 2021-08-22 08:45 | NUR ---
AUSCULTATED PATIENT LUNGS NOTED EXPIRATORY WHEEZES AND DIMINISHED BASES WITH CRACKLES RONALDO. PATIENT STATES " I DON'T FEEL LIKE I AM SHORT OF BREATH" PATIENT REPORTED USING ADVAIR DISCUS YESTERDAY, HOWEVER NOT SURE ABOUT TIMES FOR OTHER INHALERS. PATIENT REPORTS USING 3L AT NIGHT WITH BIPAP. REPORTED FINDINGS TO OR CHARGE NURSE, WHO ALERTED KEVIN LEGAL AID. PROVIDED PATIENT WITH IS, PATIENT ABLE TO HOLD TO 700 LEVEL, ENCOURAGED COUGHING AND DEEP BREATHING. NOTED OXYGEN LEVEL INCREASED FROM 89% ON ROOM AIR TO 91% ROOM AIR.
--- NOTE | 2021-08-22 09:25 | NUR ---
STARTED ALBUTEROL BREATHING TREATEMENT ON PATIENT, PATIENT VERBALIZED UNDERSTANDING. KEVIN INTO ROOM TO ASSESS. DR. ORTEGA INTO ROOM.
--- NOTE | 2021-08-22 10:21 | NUR ---
08/22/21 1021 Manjula Yin 1010 PT ARRIVED TO PACU ON 6L VIA MASK, PT ASLEEP AND VSS. 1017 PT WAKE EASILY TO VERBAL STIMULI AND DENIES PAIN AND NAUSEA. ICE PACK PLACED ON SURGICAL SITE. O2 REMOVED AND PT MOVED HERSELF UP IN BED AND PLAN OF CARE DISCUSSED.
--- NOTE | 2021-08-23 06:53 | OR ---
[facility] [address] [place], [place] [address] Signed DATE OF OPERATION: 08/22/2021 SURGEON: Selwyn Ortega MD PREOPERATIVE DIAGNOSIS: Nonhealing left occipital scalp lesion. POSTOPERATIVE DIAGNOSIS: Nonhealing left occipital scalp lesion. PROCEDURE: Excision of left occipital scalp lesion (15 mm x 40 mm). ESTIMATED BLOOD LOSS: None. FINDINGS: Jaylyn appears to have a chronic nonhealing area from her CPAP mask. There was hair and granulation tissue reminiscent of hidradenitis. INDICATIONS: Jaylyn is a 60-year-old obese diabetic female, who has hypoventilatory syndrome. She has to wear CPAP mask at night and lies on her side. She has developed lesion somewhat in the center and a little bit off to the left on the occipital scalp area. She thinks it has been there about a month. However, I think it has been much longer. She had been to her primary care provider. She was started on cephalexin. She told me she does not think it is any better after the antibiotics. It does weep on her CPAP mask strap. She was asked to see me expeditiously in the office. She came with her caregiver in her wheelchair because she can only ambulate very short distances. Otherwise, she has dyspnea on exertion and shortness of breath. In the office, we could see this transverse scalp lesion in the fold of her skin on the nape of her neck. There appears to be some chronic scarring as well as some hair and probably granulation tissue. I explained to Jaylyn to try to remove in the office. We decided to do it over in the operating room under monitored anesthesia care with local anesthetic. She understands we will use an elliptical transverse incision to remove that full-thickness and it will be sent off to the pathology department. The wound will be closed primarily. She understands there is risk including, but not limited to bleeding, infection, scarring, change in contour of the skin as well as possible need for additional surgeries or treatments based on pathology results. She had expressed understanding and wished to proceed. Electronically Signed By: SELWYN ORTEGA MD 08/23/21 0653 PATIENT NAME: JAYLYN ESTRELLA OPERATIVE REPORT DATE OF : 58 REPORT #: [id number] PHYSICIAN: SELWYN ORTEGA MD PCP: ROBERT AGUILAR DO REPORT IS CONFIDENTIAL AND NOT TO BE RELEASED WITHOUT AUTHORIZATION [facility] [address] [place] [id number] Signed DESCRIPTION OF PROCEDURE: I met with Jaylyn in our preop area and we were able to easily identify the lesion and marked it appropriately. She did require a breathing treatment before going back to our OR. After this, we took her into the operating room and placed her in the right lateral decubitus position with appropriate padding and monitoring. She was given preoperative antibiotics along with subcutaneous heparin. SCDs were utilized. She had been prepped and draped in the usual sterile fashion. She was given monitored anesthesia care per our nurse planetarium technician. I injected local anesthetic around and underneath the lesion. We then used a transverse elliptical incision to excise this area of full thickness. We came through the area with the cautery and we found that there was quite a bit of granulation tissue underneath the skin on the right side of that incision. That was all excised back to healthy adipose tissue. This is very reminiscent of hidradenitis. Again, it all appears to be associated with her BiPAP mask strap. We used several interrupted 3-0 subcuticular Monocryl sutures to bring the dermis back together. We then used interrupted 2-0 nylon vertical mattress sutures to bring the rest of the incision together and give it some strength. She was moving around and shifting her weight on the table. We wanted to proceed along in an expeditious fashion. We did not apply any ointment or gauze dressing. We rotated her into her supine position onto her hospital bed and took her into recovery room in stable condition. Selwyn Ortega MD ALB/MODL /[id number] cc: DO Selwyn Wise MD Copies: ROBERT AGUILAR ANDREW L MD ~ Electronically Signed By: SELWYN ORTEGA MD 08/23/21 0653 PATIENT NAME: JAYLYN ESTRELLA OPERATIVE REPORT DATE OF : 58 REPORT #: [id number] PHYSICIAN: SELWYN ORTEGA MD PCP: ROBERT AGUILAR DO REPORT IS CONFIDENTIAL AND NOT TO BE RELEASED WITHOUT AUTHORIZATION
--- NOTE | 2021-08-28 08:34 | PATH ---
[facility] [address] [facility] [place], [place] [address] Signed SPECIMEN(S): A LEFT OCCIPITAL SCALP LESION SPECIMEN SOURCE: A. LEFT OCCIPITAL SCALP LESION CLINICAL HISTORY: Excision of left occipital scalp lesion. FINAL PATHOLOGIC DIAGNOSIS: Skin, left occipital scalp, excision: - Reactive epidermal changes with focal ulceration and associated dermal mixed acute and chronic inflammation. - No evidence of malignancy. - Pending dermatopathology consultation, See Comment. COMMENT: This will be sent for a dermatopathology consultation and the results reported in an addendum. The epidermis shows spongiosis and changes suggestive of chronic irritation/lichen simplex chronicus, hyperkeratosis and irregular acanthosis. Centrally within these changes is an epidermal ulcer. The dermis has dense lymphoplasmacytic inflammation and scattered acute inflammation. Focal polarizable foreign material is in the dermis with associated giant cells. A PAS/D stain is negative for fungal organisms. The findings could be secondary to infectious etiologies, but given the presence of foreign material, reaction to trauma cannot be entirely excluded. NAL:cml:C2NR MICROSCOPIC EXAMINATION: Histologic sections of all submitted blocks are examined by light microscopy. These findings, together with the gross examination, support the pathologic diagnosis. A PAS/D stain was performed with appropriately staining controls. GROSS DESCRIPTION: The specimen, labeled "SD, A," and designated on the requisition "left occipital scalp lesion," is received in formalin and consists of a two unoriented skin fragments; one irregular ellipse measuring 4.0 x 1.3 x 1.7 cm and irregular shaped skin measuring 2.4 x 0.4 x 0.7 cm. The cutaneous surface of the larger elliptical fragment contains a 1.7 x 0.8 x 0.3 PATIENT NAME: ELIZABETH ESTRELLA PATHOLOGY DATE OF : 58 REPORT #: [id number] PHYSICIAN: CM PATHOLOGY PCP: ROBERT AGUILAR DO REPORT IS CONFIDENTIAL AND NOT TO BE RELEASED WITHOUT AUTHORIZATION [facility] [address] [place] [address] Signed cm, off-center, jasso-pink nodule with adjacent linear ulceration measuring less than 0.1 cm to the nearest margin. The specimen is inked blue and serially sectioned. The cutaneous surface of the second fragment is jasso and smooth with no visible lesions. Specimen is inked black and serially sectioned. Specimen is entirely submitted as follows: A1-A4: First elliptical fragment (submitted sequentially) A5-A6: Second skin fragment (submitted sequentially) AT (under the direct supervision of a pathologist) The Gross Description was prepared using a voice recognition system. The report was reviewed for accuracy; however, sound-alike word errors, addition and/or deletions may occur. If there is any question about this report, please contact Client Services. PERFORMING LABORATORY: The technical component was performed by [employer] [address] (CLIA# [id number]). [facility] [address] [address] (CLIA# [id number]). Diagnostician: Saadia Mcconnell MD Pathologist Electronically Signed 08/28/2021 Copies: ~ PATIENT NAME: ELIZABETH ESTRELLA PATHOLOGY DATE OF : 58 REPORT #: [id number] PHYSICIAN: CM PATHOLOGY PCP: ROBERT AGUILAR DO REPORT IS CONFIDENTIAL AND NOT TO BE RELEASED WITHOUT AUTHORIZATION
== END 2021-08-22 11:00 | disposition home or self-care (01) ==
LOC: DS 07:45
PROVIDERS: ATTEND Colon & Rectal Surgery
PROC: 0HB0XZZ Excision of Scalp Skin, External Approach (ICD-10-PCS; principal; 2021-08-22 08:45)
DX: L98.9 Disorder of the skin and subcutaneous tissue, unspecified (principal); I12.9 Hypertensive chronic kidney disease with stage 1 through stage 4 chronic kidney disease, or unspecified chronic kidney disease; E11.22 Type 2 diabetes mellitus with diabetic chronic kidney disease; N18.2 Chronic kidney disease, stage 2 (mild); K21.9 Gastro-esophageal reflux disease without esophagitis; E03.9 Hypothyroidism, unspecified; E78.5 Hyperlipidemia, unspecified; M19.90 Unspecified osteoarthritis, unspecified site; M10.9 Gout, unspecified; E66.2 Morbid (severe) obesity with alveolar hypoventilation; Z68.43 Body mass index [BMI] 50.0-59.9, adult; Z87.891 Personal history of nicotine dependence
CPT/HCPCS: 00300; J0690; J1100; J1644; J1885; J2001; J2405; J2704; J7121

== ENCOUNTER 2022-08-20 13:41 | Inpatient (IN) | payer OTHER ==
[~2022-08-20] VITALS: Ht 175.3 cm; Wt 177.0 kg
--- OUTSIDE RECORDS SUMMARY | 2022-08-20 13:44 | XMS ---
PreManage Notification: ELIZABETH ESTRELLA Security Patient Financial Rep Events No recent Security Events currently on file CRITERIA MET - Group Notification - PDMP CARE PROVIDERS -[place]- Dentist: Millinery Copyist [facility] PHONE: [phone] LEANN ARREOLA Physical Medicine \T\ Rehabilitation Current PHONE: [phone] ANGEL MOORE Physician Performance Improvement Specialist Current PHONE: Unknown ROBERT AGUILAR Internal Medicine 07/29/2020-Current PHONE: Unknown SHENG ONEAL [facility] 12/08/2017-Current PHONE: Unknown Care Guidelines exist for the following facilities: [facility] ( 12/23/2020 ) Care History Medical/Surgical 06/13/2018 [facility] - Patient is currently established with [facility]. If patient is seen in the ED during business hours. Please contact CHWs at [facility]. Care Recommendation: This patient has had 5 or more Emergency Department visits in the last 12 months.\T\nbsp; Patient requires education on the scope and purpose of the ED as an acute care provider not a Primary Care Provider and should not be utilized for chronic conditions.\T\nbsp; These are guidelines and the provider should exercise clinical judgment when providing care. 12/08/2017 [facility] HISTORY:\T\nbsp; COPD/ IRRITABLE BOWEL/ ARTHRITIS/ HTN/ DM2/ GERD/ PERICARDITIS/ HYPOTHYROID E.D. VISIT COUNT (12 MO.) 1 HAILE Guerrero TOTAL 1 NOTE: Visits indicate total known visits. ED/UCC VISIT TRACKING (12 MO.) 08/20/2022 13:42 [facility] [place] TYPE: Emergency COMPLAINT: - SHORTNESS OF BREATH INPATIENT VISIT TRACKING (12 MO.) No inpatient visits to display in this time frame [email or web address]
--- NOTE | 2022-08-20 17:10 | NUR ---
PT ARRIVES TO ROOM 127 VIA STRETCHER WITH ED RN AND STUDENT. PT ALERT AND ORIENTED. SPO2 88% ON 11L 02 VIA OXYMASK, UNABLE TO TOLERATE ANY MOVEMENT OF TRANSFER WITHOUT DESATURATION. PT DENIES PAIN OR NAUSEA. PUREWIK IN PLACE TO ACCOMADATE INABILITY TO TRANSFER TO COMMODE. 2ND RN SKIN ASSESSMENT COMPLETE AT BEDSIDE.
[2022-08-20 17:13] VITALS: BP 156/71
--- NOTE | 2022-08-20 17:30 | NUR ---
ADMISSION ASSESSMENT COMPLETE - PT PLACED ON VAPOTHERM AT 30/80%, SP02 REMAINS IN HIGH 80'S - 92% WITH DESATURATION TALKING OR MOVEMENT IN BED. DINNER PROVIDED, NO INSULIN COVERAGE NEEDED AT THIS TIME. PT STATES UNDERSTANDING OF POC, CALL LIGHT IN REACH, ALL QUESTIONS ANSWERED.
--- NOTE | 2022-08-20 17:43 | NUR ---
Set up patients home BiPAP unit. Mask was dirty and the silcone seal is loose. Family member will bring in new mask tomorrow. Pt prefers no humidity or water in the unit. Pt will need 02 bleed in with unit. She uses 4l/min at home currently but may need more at this time.
[2022-08-20 18:26] VITALS: BP 162/69
[2022-08-20 21:51] VITALS: BP 157/64
[2022-08-21] VITALS (9 sets, daily range): BP systolic 138–173; BP diastolic 59–74
--- NOTE | 2022-08-21 00:39 | NUR ---
SWITCHED PATIENT TO HOSPITAL PROVIDED BIPAP MACHINE BY RT. PATIENT IS MUCH MORE COMFORTABLE WITH MASK HOSPITAL PROVIDED. BED IN LOW POSITION, CALL LIGHT WITHIN REACH.
--- NOTE | 2022-08-21 02:51 | NUR ---
patient has requested to be pulled up in bed. comfortable with bipap mask. bed in low position. call light within reach.
--- NOTE | 2022-08-21 03:59 | NUR ---
PATIENT IS RESTING IN BED. CALL LIGHT IN REACH. BED IN LOW POSITION.
--- NOTE | 2022-08-21 07:30 | NUR ---
REPORT RECEIVED FROM NIGHT RN - PT RESTING ON SIDE WITH EYES CLOSED, BIPAP IN PLACE, NO LEAK NOTED WITH ADEQUATE TIDAL VOLUMES, SPO2 90%. NO DISTRESS NOTED. CALL LIGHT IN REACH.
--- NOTE | 2022-08-21 09:00 | NUR ---
ASSESSMENT COMPLETE, AM MEDICATIONS ADMINISTERED. PT PLACED ON VAPOTHERM TO EAT BREAKFAST, ADEQUATE SATURATION AT 30L/100%.
--- NOTE | 2022-08-21 09:00 | NUR ---
Spoke with Jaylyn. She states she lives in a house with no steps in. It is two stories and her laundry is in the basement. She gets sob on the stairs. She only goes downstairs for to do laundry. Pt uses a walker, liftchair, and 02, Bipap, and shower chair at home. She denies needs for other DME. Pt denies financial issues. She plans on returning to her home when she is cleared medically. Her brother lives next door to her. She does not feel she needs further DME or any assistance.
--- NOTE | 2022-08-21 10:00 | NUR ---
PT BED BATH COMPLETE, LINEN CHANGED. PUREWIK REPLACED WITH JAY CARE. PT TOLERATED TURNS IN SUPINE POSISTION WITHOUT SIGNIFICANT DESATURATION. PLACED ON BIPAP AT 24/15 AT 40% PER PT REQUEST. CALL LIGHT IN REACH.
--- NOTE | 2022-08-21 11:32 | NUR ---
RT IN ROOM TO PREFORM NEB TX.
[2022-08-21] MEDS ORDERED: LURASIDONE HCL80 MG PO (12:54)
[2022-08-21] MEDS ORDERED: PIOGLITAZONE HC30 MG PO (12:56)
[2022-08-21] MEDS ORDERED: AMLODIPINE BESY10 MG PO (12:57)
[2022-08-21] MEDS ORDERED: METOPROLOL SUC200 MG PO (12:58)
[2022-08-21] MEDS ORDERED: TRULICITY3 MG/0.5 M SUB-Q (13:00)
--- NOTE | 2022-08-21 13:00 | NUR ---
REPORT RECEIVED FROM FUNMILAYO DRUMMOND. AWIATING PTS ARRIVAL TO MED/SURG.
--- NOTE | 2022-08-21 13:11 | NUR ---
report given to MS FUNMILAYO Mckinnon 0 pt to trnasfer to 112
[2022-08-21] MEDS ORDERED: VYVANSE60 MG PO (13:34)
--- NOTE | 2022-08-21 13:35 | NUR ---
MED REC COMPLETE
--- NOTE | 2022-08-21 13:37 | NUR ---
PT TRANSFERED TO MED SURG ROOM 112. PT REPORTS SHE HAS BELONGINGS IN ROOM SAFE IN 127. GATHERED THESE BELONGINGS. PT AGREED THAT KEYS, BUSINESS PERFORMANCE ANALYST, AND WALLET WERE THE ONLY BELONGINGS. OFFERED TO PUT IN SAFE IN ADMITTING. PT DECLINES. VALUABLES PLACED IN GREEN BELONGING BAG INSIDE OF PREVIOUS BELONGING BAG. RT SHERRILL IN ROOM FOR CONVERSATION.
--- NOTE | 2022-08-21 13:44 | NUR ---
PT ARRIVED FROM CCU BY BED. PT HAS BIPAP IN PLACE WITH 24/15 AND 35% FIO2 SETTINGS. PT OFFERED TO TRY VAPOTHERM DURING ASSESSMENT SO SHE CAN TALK TO THE HEALTH CARE TEAM. PT DECLINES STATING SHE PERFERES THE BIPAP. BIPAP REMAINS IN PLACE WITH OXYGEN SATURATIONS ABOVE 90%. PT DENIES PAIN AND NAUSEA. PT ALERT AND OREINTED TO ALL. IV TO RIGHT HAND PAINFUL WITH FLUSH, DC'D PER PROTOCOL, GAUZE AND COBAN APPLIED. IV TO LEFT HAND FLUSHES WELL, PLACED YESTERDAY (UNABLE TO CHANGE IN CHARTING SYSTEM). FLUSHED AND SALINE LOCKED WITH ALCOHOL CAP APPLIED. PT ALERT AND OREINTED TO ALL. LUNG SOUNDS CLEAR TO ASCULATATION. NORMAL WORK OF BREATHIGN NOTED WITH BIPAP IN PLACE. RR 15-24. DISTANT HEART SOUNDS HEARD. TELEMETRY MONITORING PLACED, SINUS BRADYCARDIA CONTINUES ON MONITOR WITH RATE 50-60'S. +1 EDEMA NOTED IN BLE. PT REPORTS LEGS FEQUENTLY HAVE SWELLING. ABDOMEN SOFT AND NON TENDER. REDNESS NOTED UNDER PANNUS. MICONAZOLE POWDER ORDERED BY O. PT RESTING WITH EYES CLOSED, RESPIRATIONS EVEN AND UNLABORED. NO ADDITIONAL REQUESTS OR COMPLAINTS. BED RAILS UP. CALL LIGHT WITHIN REACH.
--- NOTE | 2022-08-21 14:26 | NUR ---
PT RESTING WITH EYES CLOSED, BIPAP VIBRATING AGAINST PTS FACE FREQUENTLY. RT TO BEDSIDE TO ADJUST MASK. PT DENIES ADDITIONAL REQUESTS OR COMPLAINTS. PT ENCORUAGED TO REST. CALL LIGHT WITHIN REACH. BED RAILS UP.
--- NOTE | 2022-08-21 15:16 | NUR ---
PTS BROTHER ARRIVED TO BEDSIDE TO VISIT. PT PLACED ON VAPOTHERAM AT 20LPM AND 70%. PT REPORTS SHE DOES NOT LIKE THE VAPTHERM BECAUSE OF THE HIGH FLOW. PT WEANED TO 15LPM AND 70% WITH OXGYEN SATURATIONS REMAININ ABOVE 92%. RT CALLED FOR HIGH FLOW NASAL CANULA, WILL ATTEMPT WALL OXGYEN ONCE NC ARRIVES. PTS BROTHER UPDATED ON PT STATUS AND PLAN OF CARE. PT AND BROTHER STATE THEIR QUESTIONS HAVE BEEN ANSWERED. EXTENSIVE EDUCATION DONE REGARDING LOW SALT DIET AND FLUID RESTRICTION RELATED TO HEART FAILURE. PT AND BROTHER VEBALIZE UNDERSTANDING. BROTHER BROUGHT PT A BAG OF CANDY. EDUCATION DONE AND PT DECIDES ON HER OWN TO SEND CANDY HOME FOR NOW. SUGAR FREE CHOCOLATE PUDDING PROVIDED AN ALTERNATIVE. PT DENIES ADDITIONAL REQUESTS OR COMPLAINTS. CALL LIGHT WITHIN REACH. BED RAILS UP. PT VISITING WITH FAMILY.
--- NOTE | 2022-08-21 15:36 | NUR ---
RT SHERRILL BROUGHT HIGH FLOW NC TO BEDSIDE PT PLACED ON 12L O2 BY HIGH FLOW NC. PT REPORTS THIS IS MUCH MORE COMFORTABLE THAN THE VAPOTHERM. PT TOELRATING WELL WITH OXGYEN SATURATIONS 90-94%. PT CONTINUES VISITING WITH HER BROTHER. NO ADDITIONAL REQUESTS OR COMPLAINTS. CALL LIGHT WITHIN REACH. BED RAILS UP.
--- NOTE | 2022-08-21 15:47 | NUR ---
PT TRANSFERED FROM CCU THIS SHIFT. PT HERE FOR HYPOXIC RESPIRATORY FAILURE RELATED TO CPOD AND CHF EXACERBATION. PT REMAINS IN BED THIS SHIFT, UNABLE TO TOLERATE ACTIVITY. BED BATH GIVEN IN CCU. PT HAS EXCELLENT APPITITE FOR 60G CARB 2G SODIUM DIET. PT HAS DIFFICULTY ADHEARING TO FLUID RESTRICTION. EDUCATION DONE. PT ALSO SEEN TO HAVE CANDY BROUGHT IN FROM HOME, EDUCATION DONE. BLOOD SUGAR CHECKS WITH MEALS AND HS WITH SLIDING SCALE INSULIN GIVEN. PT WEARNING BIPAP THIS SHIFT WITH 24/15 AND 35% FIO2. PT REPORTS SHE PERFERES BIPAP OVER VAOPTHERM. PT WEANED TO 12L HIGH FLOW NASAL CANULA WHEN HER BROTHER COMES TO VISIT AND TOELRATES WELL. SINUS BRADYCARDIA CONTINUES ON TELEMETRY MONITORING WITH HEART RATE IN 50-60'S. PURE WICK REMAINS IN PLACE. PT VOIDING QUANITTY SUFFICIENT, IV LASIX GIVEN. PT USESE CALL LIGHT AND MAKES NEEDS KNOWN.
--- NOTE | 2022-08-21 16:00 | NUR ---
PT CALL LIGHT ON. PT REPORTS SHE WOULD LIKE TO NAP AND WOULD LIKE BIPAP BACK IN PLACE. BIPAP PLACED WTIH 24/15 SETTINGS AND 35% FIO2. PT REPORTS FEELING COMFORTABLE, NO ADDITIONAL REQUESTS RO COMPLAINTS. CALL LIGHT WITHIN REACH. BED RAILS UP.
--- NOTE | 2022-08-21 17:06 | NUR ---
THIS RN TO ROOM TO CHECK ON PT. PT REPORTS SHE IS READY FOR DINNER. BLOOD SUGAR TAKEN. MEDICAITON GIVEN. PT UP TO CHAIR WITH 2 PERSON ASSIST PIVOT TO CHAIR. PT TOLEATED WELL ALTHOUGH TAKES SIGNIFICANT TIME TO MOVE. PT NEEDS 15L O2 BY NC FOR TRANSFER TO MAINTAIN OXGYEN SATURATIONS ABOVE 90%. PT WEANED BACK TO 12L O2 BY NC AFTER TRANSFER. DINNER DELIVERED. PT TALKING WITH FAMILY/FRIENDS ON THE PHONE. NO ADDITONAL NEEDS AT THIS TIME. CALL LIGHT WITHIN REACH. PURE WICK REMAINS IN PLACE.
--- NOTE | 2022-08-21 18:18 | NUR ---
PT CALL LIGHT ON. PT REQUESTS TO GET BACK TO BED AFTER DINNER. 1 PERSON ASSIST WITH FWW BACK TO BED. PT ABLE TO DO MOST OF THE TRANSFER ON HER OWN. HAS TROUBEL GETTING HER LEGS INTO BED. PT REQUESTS TO USE OXYMASK INSTEAD OF NC. PT PLACE DON OXY MASK AT 12L O2 WITH OXYGEN SATURATIONS OF 90-94%. WORK OF BREATHING WNL. PURE WICK REMAINS IN PLACE. PT DENIES PAIN AND NAUSEA. NO ADDITIONAL REQUESTS OR COMPLAINTS. CALL LIGHT WITHIN REACH. BED RAILS UP.
--- NOTE | 2022-08-21 19:05 | NUR ---
REPORT RECEIVED FROM FUNMILAYO VANN. PT LAYING IN BED WITH OXYMASK IN PLACE. PT RESPONDS WHEN ADDRESSED. PT DENIES ANY NEEDS AT THIS TIME. CALL LIGHT IN REACH.
--- NOTE | 2022-08-21 20:10 | NUR ---
IN ROOM TO ASSIST WITH VS, pt IN BED. VSS, PRIMARY RN VALE REMAINS IN ROOM TO COMPLETE EVENINGS CARES. CALL LIGHT IN REACH.
--- NOTE | 2022-08-21 20:15 | NUR ---
IN TO ADMINISTER MEDICATIONS, SEE MAR. PT TAKES PO MEDICATION WITH NO ISSUES. PT DENIES PAIN AT THIS TIME AND DENIES PRN PAIN MEDICATION WHEN OFFERED. VITALS AND I&Os COMPLETE. ASSESSMENT COMPLETE. LUNG SOUNDS CLEAR IN RUL AND ROCKY. DIMINISHED IN RLL AND LLL. BOWEL TONES ACTIVE. BRUISE NOTED TO PTs RLE, LOWER [place]. SCAB NOTED TO RIGHT [place]. PT REQUESTING BIPAP TO BE PLACED. BIPAP PLACED PER PT REQUEST. PT DENIES ANY OTHER NEEDS AT THIS TIME. CALL LIGHT IN REACH.
--- NOTE | 2022-08-21 20:39 | NUR ---
Pt requested BIPAP to be placed, and decided to wait until after RT gave breathing treatment. Notified Pt's RN. Refilled Pt's water, watching fluid restriction. No other needs expressed by Pt. Call light left in reach.
--- NOTE | 2022-08-21 21:14 | NUR ---
IN TO ANSWER CALL LIGHT. KEILA ORTIZ IN TO ASSIST PT IS REQUESTING TO BE REPOSITIONED. PILLOW PLACED UNDER PTs LEFT SIDE. PT DENIES ANY OTHER NEEDS AT THIS TIME. CALL LIGHT IN REACH.
--- NOTE | 2022-08-21 21:15 | NUR ---
Asisted RN with repositioning of Pt. Placed pillow underneath left hip. No other needs expressed by Pt. Call light left in reach.
--- NOTE | 2022-08-21 22:25 | NUR ---
IN TO ADMINISTER MEDICATIONS, SEE MAR. PT LAYING IN BED WITH EYES CLOSED. RR EVEN AND UNLABORED. PT RESPONDS WHEN ADDRESSED. REDNESS NOTED TO PANNUS. DESENEX POWDER APPLIED. URINE OUTPUT NOTED. I&Os DOCUMENTED. PT DENIES ANY OTHER NEEDS AT THIS TIME. CALL LIGHT IN REACH.
--- NOTE | 2022-08-22 | NUR ---
IN TO ANSWER CALL LIGHT. PT REQUESTING TO BE REPOSITIONED. PILLOW REMOVED FROM PTs LEFT SIDE. PT REQUESTING TO LAY ON BACK. PT REQUESTING TO BE BOOSTED IN BED. FUNMILAYO CHRISTIAN IN TO ASSIST WITH BOOSTING. PT. NEW PUREWICK IN PLACE. PT DENIES ANY OTHER NEEDS AT THIS TIME. CALL LIGHT IN REACH.
--- NOTE | 2022-08-22 00:44 | NUR ---
IN TO ROUND ON PT. PT LAYING IN BED SEMI-FOWLERS. RR EVEN AND UNLABORED. PT DENIES ANY NEEDS AT THIS TIME. CALL LIGHT IN REACH.
--- NOTE | 2022-08-22 01:46 | NUR ---
IN TO ANSWER CALL LIGHT. PT REQUESTING TO BE REPOSITIONED. PILLOW PLACED UNDER PTs RIGHT SIDE. PT DENIES ANY OTHER NEEDS AT THIS TIME. CALL LIGHT IN REACH.
--- NOTE | 2022-08-22 05:15 | NUR ---
IN TO ROUND ON PT. LAB IN ROOM. PT AWAKE IN BED. PT DENIES PAIN AT THIS TIME. VITALS AND I&Os COMPLETE. PT STATES "I THINK THE PUREWICK LEAKED." URINE NOTED TO PTs LINENS. KEILA CANALES IN TO ASSIST WITH JAY-CARE AND LINEN CHANGE. JAY CARE PROVIDED. NEW LINENS PROVIDED. CHUCKS PADS AND ATTENDS IN PLACE. NEW PUREWICK PLACED. PT BOOSTED IN BED. ASSESSMENT COMPLETE. LUNG SOUNDS CLEAR IN RUL AND ROCKY. DIMINISHED IN RLL AND LLL. BOWEL TONES ACTIVE. PT DENIES ANY OTHER NEEDS AT THIS TIME. CALL LIGHT IN REACH. BIPAP IN PLACE.
[2022-08-22 05:19] VITALS: BP 150/73
--- NOTE | 2022-08-22 07:03 | NUR ---
REPORT RECEIVED FROM FUNMILAYO COLLAZO. PT RESTING IN BED WITH EYES CLOSED. BIPAP IN PLACE. RR OF 17. SETTINGS 24/15 AND 35% FIO2. PTS OXGYEN SATURATION OF 92% ON MONITOR. TELEMETRY SHOWS SINUS BRADYCARDIA WITH RATE IN THE 60'S. PT ALLOWED TO REST UNDESTURBED. CALL LIGHT WITHIN REACH. BED RAILS UP.
--- NOTE | 2022-08-22 08:39 | NUR ---
MORNING ASSESSMENT AND MEDICAITON DUE. PT AWAKE AND ALERT. BIPAP REMOVED AND PT PLACED ON 12 L O2 BY HUMIDIFIED HIGH FLOW NASAL CANULA. PT REPORTS SHE HAD A GOOD NIGHTS SLEEP. PT DENIES PAIN AND NAUSEA. PT ALERT AND OREINTED TO ALL. PT UP TO CHAIR WITH ONE PERSON ASSIST AND FWW. PURE WICK REMOVED AND PT ENCORUAGED TO CALL TODAY WHEN SHE NEEDS TO GET UP TO USE THE RESTROOM. PT REPORTS SHE IS INCONTINANT AT HOME AND "JUST WET THE BED" AT NIGHT. PT ALSO STATES "WELL LET ME JUST PEE IN THE TUBE THEN BEFORE YOU TAKE IT OUT." PT HYPEROXYGENATED WTIH 15L O2 BY NC PRIOR TO GETTING UP. PT ABLE TO MAINTAIN OXGYEN SATUARTIONS ABOVE 90% WITH HYPEROXYGENATION. ONCE UP TO CHAIR PT WEANED BACK TO 12L O2 BYNC. LUNG SOUNDS CLEAR. WORK OF BREATHING WNL. PT DENIES COUGH. SINUS RYTHEM SEEN ON TELMETRY MONITORING WITH HEART RATE 60-70'S. +1 PITTING EDEMA CONTINUES IN BLE. ABDOMEN SOFT AND NON TENDER. PT GULPS DOWN HER BREAKFAST IN UNDER 5 MINUTES. PT ENCOURAGED TO EAT SLOWLY TO PREVENT INDIGESTION. MEDICATION GIVEN. PT RESTING IN CHAIR, NO ADDITIONAL REQUSETS OR COPMLAINTS. CALL LIGHT WITHIN REACH.
[2022-08-22 08:52] VITALS: BP 170/73
--- NOTE | 2022-08-22 09:20 | NUR ---
PUMP ALARMING INFUSION AND FLUSH COMPLETE. IV ASSESSED, WNL. NEXT ABX HUNG. PT RESTING WITH EYES CLOSED. OXGYEN SATURATIONS OF 90-93% ON 12L O2 BY NC. RESPIRATIONS EVEN AND UNLABORED. PT ALLOWED TO REST. CALL LIGHT WITHIN REACH.
--- NOTE | 2022-08-22 09:43 | NUR ---
PT CALL LIGHT ON. PT REQUESTS ASSISTANCE UP TO COMODE. 1 PERSON ASSIST UP TO BEDSIDE COMODE. PT VOIDS 300ML CLEAR YELLOW URINE. PT OFFERED WIPES FOR JAY CARE. PT STATES SHE DOES NOT CLEAN HERSELF AT HOME AFTER RESTROOM USE. PT AGREEABLE FOR THIS RN TO ASSIST WITH JAY CARE. JAY CARE PERFORMED. FRESH DEPENDS IN PLACE. 1 PERSON ASSIST BACK TO CHAIR. OXGYEN SATURATIONS MAINTAIN FROM 89-94% ON 12L O2 BY NC WITH ACTIVITY. PT DENIES ADDITIONAL REQUESTS OR COMPLAINTS. CALL LIGHT WITHIN REACH. PT RECLINING IN CHAIR.
--- NOTE | 2022-08-22 10:36 | NUR ---
PT CALL LIGHT ON. MEDICATION DUE. PT REQUESTS ASSISTANCE UP TO RESTROOM. 1 PERSON ASSIST UP TO COMODE. PT VOIDS ADDITIONAL 300ML YELLOW URINE. JAY CARE DONE FOR PT. STAND BY ASSIST BACK TO CHAIR. OXGYEN SATUARTIONS MAINTAIN ABOVE 90% WITH ACTIVITY WHEN GETTING UP ON 12L O2 BY OM. PT WEANED TO 10L O2 BY OM WITH OXGYEN SATURATIONS MAINTAINING ABOVE 92%. PUMP ALARMING, INFUSIN AND FLUSH COMPLETE. IV FLUSHED AND SALINE LOCKED PER PROTOCOL. ALCOHOL CAP APPLIED. MEDICATION GIVEN. NO ADDITIONAL REQUESTS OR COMPLAINTS. CALL LIGHT WIHTIN REACH.
[2022-08-22 10:41] VITALS: BP 164/80
--- NOTE | 2022-08-22 11:29 | NUR ---
THIS RN TO ROOM WITH DR. ECKERT FOR ROUNDS. PT REMAINS UP TO CHAIR. TOELRATING 10L O2 BY NC WITH OXGYEN SATUATIONS ABOVE 92%. HEART RATE IN [place] 50-60'S. PT DENIES PAIN AND NAUSEA AND REPROTS "MY BREATHING IS BETTER." NO ADDITIONAL REQUESTS OR COMPLAINTS. CALL LIGHT WITHIN REACH.
--- NOTE | 2022-08-22 12:21 | NUR ---
MEDICATION DUE. LUNCH DELIVERED TO PT. PT REMAISN ON 10L O2 BY NC WITH OXGYEN SATURATIONS ABOVE 92%. PT DENIES PAIN AND NAUSEA. REMAINS UP TO CHAIR TO EAT LUNCH. NO ADDITIONAL REQUESTS OR COMPLAINTS. CALL LIGHT WITHIN REACH.
--- NOTE | 2022-08-22 12:55 | NUR ---
PT CALL LIGHT ON. PT REPORTS NEED TO USE RESTROOM. STAND BY ASSIST UP TO BEDSIDE COMODE. PT VOIDS 450ML CLEAR YELLOW URINE. JAY CARE DONE FOR PT PT CONTINUES TO EXPRESS THAT SHE DOES NOT PERFORM JAY CARE FOR HERSELF. PT PLACED BACK ON OXYMASK AFTER USING NC (REMAINS AT 10L) AFTER LUNCH. NO ADDITIONAL REQUESTS OR COMPLAINTS. OXGYEN SATRAUTION 91-95%. CALL LIGHT WITHIN REACH.
--- NOTE | 2022-08-22 13:32 | NUR ---
AFTERNOON ASSESSMENT AND MEDICAITON DUE. PT REMAINS UP TO CHAIR, REQUESTS TO GET BACK TO BED. PT DENIES PAIN AND NAUSEA. PT ALERT AND ORIENTED TO ALL. LUNG SOUNDS CLEAR THROUGHOUT. PT REMAINS ON 10L O2 BY HIGH FLOW NC OR OXYMASK PER PT PREFERENCE. NORMAL WORK OF BREATHING SEEN. OCCATIONAL NONPRODUCTIVE COUGH HEARD OCCATIONALLY. HEART TONES REGULAR. NORMAL SINUS RYTHEM SEEN ON MONITOR WITH HEART RATE IN THE 60-70'S. +1 TRACE EDEMA SEEN, SOCK IMPRENTS NOTED AROUND ANKLES. ABDOMEN SOFT AND NON TENDER. PT REPORTS SHE HAS INCONTINANCE "WHEN I'M IN BED." PT HAS SO FAR BEEN CONTINENT OF URINE. PT UP TO AMBULATE WITH PHYSICAL THERPAY, STAND BY ASSIST AND FWW USED. PT ABLE TO ABMBULATE ARROUND ROOM AND TO PHYSCIAL THERAPY ROOM. PT REPORTS HER STRENGHT FEELS "PRETTY MUCH NORMAL." OXGYEN INCREASED TO 15L O2 BY HIGH FLOW NASAL CANULA FOR ACTIVITY. PT ABLE TO MAINTAIN OXGYEN SATURATIONS 91-94% WITH THIS INCREASED OXGYEN DURING ACTIVITY. PT CONTINUES WORKING WITH PHYSICAL THERAPY. NO ADDITIONAL NEEDS AT THIS TIME.
[2022-08-22 13:48] VITALS: BP 151/70
--- NOTE | 2022-08-22 13:56 | NUR ---
PT FINISHED WITH PHYSICAL THERAPY. PT BACK TO ROOM AND BACK TO BED. PT CONTINEUS TO NEED ASSISTANCE WITH GETTING LEGS INTO BED. OXGEN SATURATION REMAINS ABOVE 90% ON 15L DURING ACTIVITY. PT WEANED BACK TO 10L O2 BY OXYMASK WITH OXYGEN SATUARTIONS 91-95%. PTS BROTHER ARRIVED TO BEDSIDE, UPDATED ON PLAN OF CARE. NO ADDITIONAL REQUESTS OR COMPLAINTS. CALL LIGHT WITHIN REACH. BED RAILS UP.
--- NOTE | 2022-08-22 14:32 | NUR ---
HEART FAILURE PACKET AND MAGNET PROVIDED AND EXPLAINED TO PT AND PTS BROTHER. REVIEWED IN DETAIL. PT DEMONSTARTES UNDERSTANDING OF RED/YELLOW/GREEN ZONES STATING SHE IS IN THE "YELLOW" ZONE TODAY. PT DENIES ADDITIONAL REQUESTS OR COMPLAINTS AT THIS TIME. OXGYEN SATURATION REMAINS 90-95% ON 10L O2 BY NC. NO ADDITIONAL NEEDS AT THIS TIME. CALL LIGHT WITHIN REACH. BED RAILS UP.
--- NOTE | 2022-08-22 15:20 | NUR ---
HOURLY ROUNDING: PT RESTING IN BED WITH EYES CLOSED. BIPAP IN PLACE, SETTINGS UNCHANGED. OXGYEN SATUATION OF 95%. PT ALLOWED TO REST UNDESTURBED. CALL LIGHT WITHIN REACH. BED RAILS UP.
--- NOTE | 2022-08-22 15:22 | NUR ---
PT HERE FOR HYPOXIC RESPIRATORY FAILURE RELATED TO COPD AND CHF EXACERBATION. PT UP TO CHAIR, BED SIDE COMODE AND WITH PHYSICAL THERAPY THIS SHIFT. PT ABLE TO AMBUALTE IN ROOM AND IN SERRANO. NEEDS 15L O2 BY NC WITH ACTIVITY TO MAINTAIN O2 SATURATION ABOVE 90%. PT HAS EXCELLENT APPITITE FOR 60G CARB 2G SODIUM DIET. PT TOLERATING FLUID RESTRICTION THIS SHIFT. BLOOD SUGAR CHECKS WITH MEALS AND HS WITH SLIDING SCALE INSULIN GIVEN. PT WEARNING BIPAP WHILE RESTING WITH 24/25 AND 35% FIO2. PT WEANED TO 10L O2 BY NC/OXYMASK WHEN UP TO CHAIR OR NOT SLEEPING. SINUS RYTHEM SEEN ON TELEMETRY MONITORING. JARRELL ENCARNACION DC'Francine. PT VOIDING QUANITTY SUFFICIENT, IV LASIX GIVEN. PT USESE CALL LIGHT AND MAKES NEEDS KNOWN.
--- NOTE | 2022-08-22 16:38 | NUR ---
THIS RN TO ROOM TO CHECK ON PT. PT CONTINUES RESTING WITH EYES CLOSED. BIPAP IN PLACE, SETTINGS UNCHANGED. RESPIRATIONS EVEN AND UNLABORED. OXYGEN SATURATION 92%. BED RAILS UP. CALL LIGHT WITHIN REACH. PT ALLOWED. TO REST.
--- NOTE | 2022-08-22 17:11 | NUR ---
DINNER DELIVERED TO PT. PT UP TO BEDSIDE COMODE WITH STAND BY ASSIST. PT VOIDS WITHOUT ISSUE, ASSISTED WITH JAY CARE. OXGYEN UP TO 15L FOR ACTIVITY TO MAINTAIN OXGYEN SATURATIONS ABOVE 92%. MEDICATION GIVEN. PT EATING DINNER UP TO CHAIR. PT TITRATED BACK TO 10L O2 BY NC, TOLERATING WELL WITH OXGYEN SATURATIONS ABOVE 92%. CALL LIGHT WITHIN REACH.
--- NOTE | 2022-08-22 18:10 | NUR ---
Rounded on patient who is resting and states no needs. O2 AT 10L and maintaining SPO2 at 96% at this time. She denies SOB or needs. Call light in reach.
[2022-08-22 18:14] VITALS: BP 153/74
--- NOTE | 2022-08-22 18:35 | NUR ---
Rounded on patient to monitor o2 sats and pt status, pt is resting in bed and states no needs at this time, maintaining SPO2 at 95% on 10L. Bedside table adjusted, call light in reach.
--- NOTE | 2022-08-22 19:25 | NUR ---
shift report received from tristen braun at bedside. pt awake and resting in bed, 10loxymask. pt switched to bipap-settings 24/15 35%o2 by tristen braun. no additional needs, call light in reach.
--- NOTE | 2022-08-22 19:45 | NUR ---
Pt requested BIPAP to be adjusted from clip coming loose. Refilled Pt's water with fresh ice and limited water with approval of RN. Call light left in reach. No other needs expressed by Pt.
[2022-08-22 21:48] VITALS: BP 160/91
--- NOTE | 2022-08-22 21:57 | NUR ---
Assisted Pt with using bedside commode and assisted back to bed.Assisted Pt with putting on CPAP. Repositioned Pt with RN bhargav. Call light left in reach. No other needs expressed by Pt.
--- NOTE | 2022-08-22 22:30 | NUR ---
ASSESSMENT COMPLETE, SCHEDULED MEDS GIVEN. ACCUCHECK RESULT OF 200, INSULIN SS GIVEN-SEE EMAR. pt AWAKE AND DENIES PAIN AND NAUSEA. pt SWITCHED FROM BIPAP TO 10L OXYMASK, EVENING SF SNACK PROVIDED PER pt REQUEST. IV SITE WNL, FLSUHED WNL. DESENEX POWDER TO UNDER PANNUS AND UNDER BREASTS. RECENTLY UP TO VOID VIA BSC. DENIES ADDITIONAL NEEDS, UNDERSTANDS TO CALL PRODUCTION MACHINE SHOP SUPERVISOR WHEN READY TO GO BACK ON BIPAP. CALL LIGHT IN REACH.
--- NOTE | 2022-08-22 22:52 | NUR ---
Pt requested sugar-free jello. Checked with RN and gave jello to Pt. Disinfected and placed glucometer in [facility] station for RN. Call light left in reach. No other needs expressed by Pt.
--- NOTE | 2022-08-22 23:02 | NUR ---
Assisted Pt with taking off Oxy-Mask and replacing BIPAP on face. Pt ate 100% of jello. Call light left in reach. No other needsexpressed by Pt.
--- NOTE | 2022-08-23 00:15 | NUR ---
pt RESTING IN BED, EYES CLOSED. ON BIPAP-SETTINGS UNCHANGED. RR EVEN AND UNLABORED, NO DISTRESS NOTED. CALL LIGHT IN REACH.
--- NOTE | 2022-08-23 01:50 | NUR ---
IN ROOM TO ASSIST pt FROM BSC BACK TO BED, pt VERBALIZES INABILITY TO WIPE SELF WHEN EDUCATED TO WIPE FROM FRONT TO BACK, pt STATES, "OH I CAN'T WIPE MYSELF". JAY CARE DONE AND LEGS ALSO WIPED FROM URINE DRIBBLING. pt BACK TO BED AND BACK ON BIPAP, SETTINGS REMAIN UNCHANGED-24/15 35% O2. CPOX IN PLACE, SPO2 95%. RR EVEN AND UNLABORED. NO DISTRESS NOTED. CALL LIGHT LEFT IN REACH.
--- NOTE | 2022-08-23 04:15 | NUR ---
pt RESTING IN BED WITH EYES CLOSED. ON BIPAP, RR EVEN AND UNLABORED. CPOX SHOWS SPO2 92%. NO DISTRESS NOTED. CALL LIGHT IN REACH.
[2022-08-23 05:46] VITALS: BP 146/57
--- NOTE | 2022-08-23 05:48 | NUR ---
pt UP TO BSC TO VOID AND BACK TO BED, BIPAP RESUMED. SETTINGS UNCHANGED. RT MICHELLE IN ROOM TO HANG NEW BAG STERILE WATER FOR BIPAP MACHINE. CPOX REMAINS IN PLACE. NO ADDITIONAL NEEDS, CALL LIGHT IN REACH. I&O'S COLLECTED AND VSS. FRESH WATER PROVIDED PER FLUID RESTRICTION- 300MLS.
--- NOTE | 2022-08-23 06:45 | NUR ---
scheduled solu-medrol given-see emar. iv site wnl. saline locked. no additional needs or concerns verbalized. call light in reach.
--- NOTE | 2022-08-23 07:17 | NUR ---
REPORT RECEIVED FROM FUNMILAYO CHRISTIAN. PT RESTING IN BED WITH EYES CLOSED. BIPAP IN PLACE, SETTINGS UNCHANGED. OXYGEN SATURATION OF 95%. NO ADDITIONAL NEEDS AT THIS TIME. CALL LIGHT WITHIN REACH. BED RAILS UP.
[2022-08-23 08:50] VITALS: BP 161/78
--- NOTE | 2022-08-23 08:50 | NUR ---
MORNING ASSESSMENT AND MEDICATION DUE. PT RESTING IN BED WITH BIPAP IN PLACE. PT AWAKENS TO VOICE AND MOVEMENT IN THE ROOM. 1 PERSON ASSIST UP TO CHAIR FOR BREAKFAST. PT DENIES PAIN AND NASUEA. PT ALERT AND OREINTED TO ALL. LUNG SOUNDS CLEAR BUT FOR SMALL EXPIRATORY WHEEZE NOTED IN UPPER LOBES. WORK OF BREATHING WNL. PT REMAINS ON 10L O2 BY NC WITH OXGYEN SATUATIONS 90-95%. HEART TONES REGULAR. +1 PITTING EDEMA CONTINUES TO BLE. BOWEL TONES ACTIVE. PT UP TO BEDSIDE COMODE WITH STAND BY ASSIST. PT VOIDS WITH OUT ISSUE AND AGREES TO PERFORM HER OWN JAY CARE THIS MORNING. NO ADDITIONAL REQUESTS OR COMPLAINTS. PT BACK TO CHAIR. CALL LIGHT WITHIN REACH.
--- NOTE | 2022-08-23 10:03 | NUR ---
HOURLY ROUNDING: PT RESTING IN CHAIR WITH EYES CLOSED. RESPIRATIONS EVEN AND UNALBORED. OXGYEN SATURATIONS 92% ON 10L O2 BY NC. CALL LIGHT WITHIN REACH. PT ALLOWED TO REST UNDESTURBED.
--- NOTE | 2022-08-23 10:10 | NUR ---
PT CALL LIGHT ON. PT REQUESTS ASSISTANCE UP TO COMODE. STAND BY ASIST UP TO BEDSIDE COMODE. PT VOIDS 400ML CLEAR YELLOW URINE. PT MAINTINS OXGYEN SATURATIOSN 88-90% ON 10L O2 BY NC WITH ACTIVITY OF GETTING UP. RECOVERS TO 92% AFTER 1-2 MINUTES. PT PERFORMS SELF JAY CARE. STAND BY ASSIST BACK TO CHAIR. NO ADDITIONAL REQUESTS OR COMPLAINTS. CALL LIGHT WITHIN REACH.
--- NOTE | 2022-08-23 10:52 | NUR ---
PT CALL LIGHT ON. PT REQUESTS ASSISTANCE UP TO BEDSIDE COMODE. STAND BY ASSIST UP TO COMODE. PT VOIDS ITHOUGH ISSUE. PT TOERLATES ACTIVITY ON 10L O2 BY NC WITH OXGYEN SATURATIONS ABOVE 90%. PT PERFORMS SELF JAY CARE. STAND BY ASSIST BACK TO CHAIR. NO ADDITIONAL REQUESTS OR COMPLAINTS. CALL LIGHT WITHIN REACH.
--- NOTE | 2022-08-23 11:33 | NUR ---
PT CALL LIGHT ON. PT REQUESTS ASSISTANCE UP TO RESTROOM. PT NOTED TO HAVE STOOL OVER BACKSIDE FROM PREVIOUS TIME UP TO COMODE "WITH A MILESEN NURSE." PT STATES SHE DID NOT PERFORM JAY CARE. PT VOIDS ADDITIONAL 300ML CLEAR YELLOW URINE, JAY CARE DONE. PT REPORTS AFTER BOWEL MOVEMENTS AT HOME SHE USES A BIDET. PT DENIES PAIN AND NAUSEA. PT UP TO WORK AMBULATE WITH PHYSICAL THERAPY. OXGYEN INCREASED TO 15L FOR ACTIVITY WITH SATURATIONS 89-92%. PT DENIES ADDITIONAL REQUESTS OR COMPLAINTS.
--- NOTE | 2022-08-23 11:49 | NUR ---
PT BACK TO ROOM AFTER PHYSICAL THERAPY. BLOOD SUGAR TAKEN. PT UP TO CHAIR FOR LUNCH. SHERRILL, RT, TO BEDSIDE FOR BREATHING TREATMENT. PT WEANED BACK TO 10L O2 BY NC. PT DENIES ADDITONAL REQUESTS OR COMPLAINTS. CALL LIGHT WITHIN REACH.
--- NOTE | 2022-08-23 12:25 | NUR ---
LUNCH DELIVERED TO PT. PT REMAINS UP TO CHAIR TO EAT. PT TOLERATING 10L O2 BY NC WITH OXGYEN SATURATIONS ABOVE 90%. MEDICATION GIVEN. PT DENIES PAIN AND NAUSEA. NO ADDITIONAL REQUESTS OR COMPLAINTS. CALL LIGHT WITHIN REACH.
--- NOTE | 2022-08-23 12:40 | NUR ---
PT CALL LIGHT ON. PT REQUESTS ASSISTANCE UP TO RESTROOM. STAND BY ASSIST UP TO BEDSIDE COMODE. PT VOIDS WITHOUT ISSUE. PT REMINDED TO DO HER OWN JAY CARE. PT REQUESTS TO GET BACK TO BED. PT ENCORUAGED TO STAY UP A BIT LONGER AND PT AGREES. PT CONTINUES TO TOLERATE 10L O2 BY NC. NO ADDITIONAL REQUESTS OR COMPLAINTS. CALL LIGHT WITHIN REACH.
--- NOTE | 2022-08-23 13:30 | NUR ---
AFTERNOON ASSESSMENT AND MEDICAITON DUE. PT REQUESTS TO GET BACK TO BED. PT ALERT AND OREINTED TO ALL. PT DENIES PAIN AND NAUSEA. LUNG SOUNDS CLEAR BUT FOR OCCATIONAL INSPIRATORY WHEEZE IN RIGHT UPPER LOBE. WORK OF BREATHING, HOWEVER PT CONTINUES TO REQUIRE 10L O2 BY NC OR OXYMASK TO MAINTAIN OXGYEN SATURATIONS ABOVE 90%. STAND BY ASSIST UP TO BESIDE COMODE. PT VOIDS 300ML CLEAR YELLOW URINE. PT PERFORMS SELF JAY CARE. STAND BY ASSIST BACK TO BED. BRADYCARDIA NOTED WITH A RADIAL PULSE OF 46-52. PULSE CORRILIATES TO APICAL HEART SOUNDS. PT DENIES CHEST PAIN DIZZINESS OR FATIGUE. +1 TRACE PITTING EDEMA UNCHNAGED TO BLE. DR NELSON TO BEDSIDE AND UPDATED ON PT STATUS AND ASSESSMENT. NEW ORDERS PLACED. PT VERBALIZES UNDERSTANDING OF PLAN OF CARE. MEDICATION GIVEN. NEW IV STARTED TO RIGHT HAND HAS LEFT HAND IV IS BEINGING TO LEAK. IV STARTED PER PROTOCOL. BRISK BLOOD REUTRN NOTED. MEDICAITON GIVEN AND IV SALINE LOCKED. IV TO LEFT HAND LEFT IN PLACE FOR CT SCAN IT IS NOT PAINFUL WITH FLUSH, ONLY MILDY LEAKING. RT CALLED FOR ABG. IMAGING CALLED FOR CT. PT RESTING IN BED WITH EYES CLOSED. NO ADDITIONAL REQUESTS OR COMPLAINTS. CALL LIGHT WIHTIN REACH. BED RAILS UP.
[2022-08-23 13:46] VITALS: BP 156/72
--- NOTE | 2022-08-23 14:38 | NUR ---
PT UP TO WHEELCHAIR AND TO CT SCAN. PT ON 15 L OM FOR TRANSFER.
--- NOTE | 2022-08-23 15:17 | NUR ---
THIS RN TO ROOM TO CHECK ON PT. PT RETURNED FROM CT. BIPAP IN PLACE AND PT IS RESTING WITH EYES CLOSED. RESPIRATIONS EVEN AND UNLABORED. BIPAP SETTINGS UNCHANGED. OXGYEN SATURATION 89-92%. NO ADDITONAL NEEDS AT THIS TIME. CALL LIGHT WITHIN REACH. BED RAILS UP.
--- NOTE | 2022-08-23 16:53 | NUR ---
THIS RN TO ROOM TO CHECK ON PT. PT RESTING WITH BIPAP IN PLACE WITH EYES CLOSED. PT AWAKENS TO MOVEMENT IN THE ROOM AND REQUESTS TO GET UP TO COMODE. STAND BY ASSIST UP TO BEDSIDE COMODE. PT VOIDS 600ML CLEAR YELLOW URINE. JAY CARE PER PT. STAND BY ASSIST UP TO CHAIR. BLOOD SUGAR TAKEN. IV TO LEFT HAND DC'D PER PROTCOL. GAUZE AND COBAN APPLIED. PT TOELRATING 10L O2 BY OM WITH OXGYEN SATUARTIONS 90-94%. NO ADDITIONAL REQUESTS OR COMPLAINTS. CALL LIGHT WITHIN REACH.
--- NOTE | 2022-08-23 17:04 | NUR ---
PT HERE FOR HYPOXIC RESPIRATORY FAILURE RELATED TO COPD AND CHF EXACERBATION. PT UP TO CHAIR, BED SIDE COMODE AND WITH PHYSICAL THERAPY THIS SHIFT. PT ABLE TO AMBUALTE IN ROOM AND IN SERRANO. NEEDS 15L O2 BY NC WITH ACTIVITY TO MAINTAIN O2 SATURATION ABOVE 90%. PT HAS EXCELLENT APPITITE FOR 60G CARB 2G SODIUM DIET. PT TOLERATING FLUID RESTRICTION THIS SHIFT. BLOOD SUGAR CHECKS WITH MEALS AND HS WITH SLIDING SCALE INSULIN GIVEN. PT WEARNING BIPAP WHILE RESTING WITH 24/25 AND 35% FIO2. PT CONTINUES ON 10L BY NC/OXYMASK WHEN UP TO CHAIR OR NOT SLEEPING. CHEST CT TO RULE OUT PE THIS SHIFT. PT VOIDING QUANITTY SUFFICIENT, IV LASIX GIVEN. PT USESE CALL LIGHT AND MAKES NEEDS KNOWN.
--- NOTE | 2022-08-23 17:37 | NUR ---
PT FINISHED WITH DINNER. AT 100%. MEDICATION GIVEN. VITAL SIGNS STABLE. PT DENIES ADDITIONAL REQUESTS OR COMPLAINTS. CALL LIGHT WITHIN REACH. PT UP TO CHAIR LISTENING TO BOOK ON TAPE.
[2022-08-23 17:46] VITALS: BP 155/77
--- NOTE | 2022-08-23 17:48 | NUR ---
PT FINISHED WITH DINNER AND REQUESTS WATER. WATER PROVIDED. ROOM AIR TRIAL ATTEMPTED PER MD RECCOMENDATION. PT DROPS TO 85-86% WHILE ON ROOM AIR FOR 20 MINUTES. PT REPORTS NO CHANGES IN HOW HER BREATHING FEELS, NO LIGHT HEADEDNESS OR DIZZINESS. HEART RATE CONTINUES TO BE IN THE 50'S. PT PLACED BACK ON 10L O2 BY NC TO MAINTAIN OXGYEN SATURATIONS 90-93% UNTIL MD CAN BE UPDATED. PT CONTINEUS TO DENUY PAIN AND NASUEA. NO ADDITIONAL REQUESTS OR COMPLAINTS. CALL LIGHT WITHIN REACH.
--- NOTE | 2022-08-23 18:05 | NUR ---
DR NELSON CALLED AND UPDATED REGARDING ROOM AIR TRIAL. PT CONTINEUS TO MAINTAIN OXGYEN SATUARTIONS 84-87% ON ROOM AIR WHILE UP TO CHAIR. ORDERS GIVEN TO PLACE PT BACK ON NEEDED OXGYEN TO MAINTAIN SATURATIONS ABOVE 90%. PT PLACED BACK ON 10L O2 BY NE. PT CONTINUES TO REPORT NO DIFFERENCE IN BREATHING. PT UP TO BEDSIDE COMODE WITH STAND BY ASSIST. PT SHORT OF BREATH WITH ACTIVITY. PT VOIDS 400ML CLEAR YELLOW URINE. JAY CARE DONE. OXGYEN SATUARTIONS NOW 93%. I.S. PROVIDED AND I.S. USE DEMONSTRATED WITH PT REACHING 1000ML X10. STAND BY ASSIST BACK TO BED. PT REQUESTS OXYMASK STATING SHE DOESN'T LIKE THE PRONGS OF THE NC. OXGYEN SATURATIONS NOW 90-93%. NO ADDITIONAL REQUESTS OR COMPLAINTS. CALL RICHY STORY. BED RAILS UP.
--- NOTE | 2022-08-23 18:53 | NUR ---
THIS RN TO ROOM TO CHECK ON PT. PT RESTING WITH EYES CLOSED. PT WEANED TO 8L O2 BY NC AND MAINTAINS OXGYEN SATURATIONS ABOVE 90%. RESPIRATIONS EVEN AND UNLABORED. BED RAILS UP. CALL LIGHT WITHIN REACH.
--- NOTE | 2022-08-23 19:40 | NUR ---
REPORT RECEIVED FROM FUNMILAYO VANN. pt RESTING IN BED AWAKE. 8L OXYGEN BY OXYMASK IN PLACE, SPO2 93-94% ON TELE CPOX. NO DISTRESS NOTED. pt ASKING FOR MORE WATER, DISCUSSED ALLOTTED WATER FOR EVENING. CALL LIGHT IN REACH.
--- NOTE | 2022-08-23 19:45 | NUR ---
PATIENT CALLED TO USE THE BEDSIDE COMMODE. 1PA/SBA BACK TO BED. V/S AND I&O'S TAKEN AND CHARTED. PRIMARY RN WAS WITH PATIENT.
[2022-08-23 19:58] VITALS: BP 151/57
--- NOTE | 2022-08-23 20:15 | NUR ---
pt UP TO BSC FOR VOID AND BACK TO BED. MINIMAL ASSISTANCE WITH LEGS TO GET pt IN BED. INDEPENDENT WITH CARES AT BSC, FWW USE. SPO2 TITRATED TO 7L BY OXYMASK, SPO2 REMAINS 92-93% ON TELE CPOX. ASSESSMENT COMPLETE. LUNG SOUNDS CLEAR THROUGHOUT ALL LOBES. SF PUDDING PROVIDED. ICE WATER REFILLED PER ALLOTTED FLUID. CALL LIGHT IN REACH.
--- NOTE | 2022-08-23 21:51 | NUR ---
SPO2 DROPS TO 87% ON TELE CPOX. RT NOTIFIED. IN TO ASSESS HOME BIPAP, SPO2 INCREASES TO 90% WHILE RT IN ROOM, 10L OXYGEN BLED INTO BIPAP. NO DISTRESS NOTED.
--- NOTE | 2022-08-23 23:05 | NUR ---
CCU NOTIFIED, SPO2 DROPS TO 79% BRIEFLY THEN BACK UP TO 90% ON CPOX. RN IN ROOM, pt LYING IN BED ON BACK, BIPAP ON. NO DISTRESS NOTED, EYES CLOSED. BREATHING UNLABORED.
--- NOTE | 2022-08-24 | NUR ---
CALL LIGHT ANSWERED. SBA TO BEDSIDE COMMODE AND BACK IN BED. BIPAP ON. DENIES FURTHER NEEDS AT THIS TIME.
--- NOTE | 2022-08-24 00:15 | NUR ---
pt UP TO BSC SBA WITH FWWKEILA IN ROOM. [address] IN PL[address], SPO2 REMAINS >90% WITH AMBULATION TO BSC AND BACK TO BED. BIPAP MASK ON AT THIS TIME.
--- NOTE | 2022-08-24 00:52 | NUR ---
SPO2 MONITOR NOT READING ON TELE CPOX, IN ROOM, pt AWAKENS TO VOICE, SENSOR ADJUSTED. SPO2 READS >89%.
--- NOTE | 2022-08-24 02:58 | NUR ---
pt LYING IN BED ON RIGHT SIDE. BIPAP ON, 10L OXYGEN BLED IN. SPO2 93% ON TELE CPOX. NO DISTRESS NOTED.
[2022-08-24 05:21] VITALS: BP 158/63
--- NOTE | 2022-08-24 05:21 | NUR ---
PT RESTING IN BED. VITALS AND IS AND OS COMPLETE. NO NEEDS AT THIS TIME. CALL LIGHT WITHIN REACH
--- NOTE | 2022-08-24 05:26 | NUR ---
PLUG ASSEMBLER IN ROOM. TELE BATTERY CHANGED AT THIS TIME, CPOX 93-94% WITH 10L WITH HOME BIPAP ON. pt DENIES TOILETING NEEDS. ASSESSMENT COMPLETE. CALL LIGHT WITHIN REACH.
--- NOTE | 2022-08-24 07:21 | NUR ---
Received report from operation shift supervisor nurse. Patient to resting in bed with her bipap on.
--- NOTE | 2022-08-24 08:10 | NUR ---
Patient up to the chair with no trouble for breakfast. Stand by assist. Patient to has oxgyen high flow NC on to eat. Patients bed was changed while patient was up to the chair.
--- NOTE | 2022-08-24 08:54 | NUR ---
RT was called as patient has not got her 0800 nebulizer treatments. They will be here shortly.
[2022-08-24 09:58] VITALS: BP 166/85
--- NOTE | 2022-08-24 11:01 | NUR ---
PATIENT WAS UP IN HER CHAIR FOR BREAKFAST.
--- NOTE | 2022-08-24 12:28 | NUR ---
PATIENT UP IN THE CHAIR FOR LUNCH, DENIES ANY CARES AT THIS TIME. INSULIN 1 UNIT WAS GIVEN WITH FOOD. CALL LIGHT WITHIN REACH.
--- NOTE | 2022-08-24 12:50 | NUR ---
PATIENT UP TO COMMODE TO VOID AND BM, PATIENT INDICATED THAT SHE NEEDED TO BE WIPED AND WAS UNABLE TO DO THIS TASK FOR HERSELF. PATIENT CLEANED, REQUESTED TO GO TO BED, REQUIRED ASSISTANCE WITH HYGIENE.
--- NOTE | 2022-08-24 13:07 | NUR ---
patient currently asleep in bed with bipap on. Regular respirations noted.
--- NOTE | 2022-08-24 13:35 | NUR ---
RT here and changed patient to our bipap machine as her home bipap machine still has her oxgyen running in the 80s with 10L of oxygen bled into it. Bipap machine changed out and patient currently running at 92%.
--- NOTE | 2022-08-24 14:00 | NUR ---
Called and spoke with Shaylee [facility] RT. UPdated concern pts Bipap is not working correctly as sats are low on her Bipap and rise into the 90s when using our Bipap. Per Shaylee pt is using her Bipap 17-19 hrs per day and this machine is made for 8 hrs use. This is above the amount of use this machine can be used daily. I will pass on to Dr. Viramontes.
[2022-08-24 14:13] VITALS: BP 149/60
--- NOTE | 2022-08-24 15:07 | NUR ---
BEFORE DOING HER TWO O CLOCK VITALS PATIENT NEEDED TO VOID. AND DUE TO HER BEING ON THE BIPAP WE USED THE SHOWER CHAIR A BEDSIDE COMMODE WITH TWO CORRIGAN BUCKETS UNDER.
--- NOTE | 2022-08-24 15:51 | NUR ---
Patient in bed with hob at 30degrees. Patient currently has bipap on and oxygen stat is at 93%. Patient has call light within reach, phone. Patient denies any cars at this time and just wants to get some rest.
--- NOTE | 2022-08-24 17:07 | NUR ---
Update given to Dr. Viramontes from [facility]. He feels pt needs to have a new sleep study and new settings on her BIpap.
--- NOTE | 2022-08-24 17:18 | NUR ---
Patient up to the bedside commode to void. Patient then over to the chair for dinner. Patient got 5 units of insulin tonight and was just given evening medication. Call light within reach. Patient has high flow NC at 10L right now to eat.
[2022-08-24 17:36] VITALS: BP 163/67
--- NOTE | 2022-08-24 18:34 | NUR ---
Patient today has went from wearing the hospital Bipap machine when resting, to high flow NC with meals, and oxy mask at all other times. Patient likes to wear the Bipap most of the day. These are all set at 10L and patients oxygen stats are staying in the 90s. Patient has pulse oxy on tele screen for monitoring. Patient is to not use her own home Bipap machine as with this on she was only stating in the 80s. Patient is a stand by assist to the bed side commode. She is currently on Lasix bid and using the commode multiple times during the day. Overall eating well and got a total of 6 units of insulin total today. She is currently on 1600ml fluid restriction and tolerates this well. She has walker in room but denies using it. She currently working with PT and RT. She lives at home with her brother living next to her. Patient has been che today in the 40s-50s. d/c her metoprolol. Echo was ordered today and aware this will not happen tell Wednesday. Patient has been plesant today and calls when needed. Patient likes to listen to audio book on tape. BM today.
--- NOTE | 2022-08-24 19:05 | NUR ---
REPORT RECEIVED FROM FUNMILAYO SOLIS. pt RESTING IN BED WITH EYES CLOSED. 10L OXYGEN BY OXYMASK IN PLACE. CALL LIGHT IN REACH.
[2022-08-24 20:15] VITALS: BP 146/61
--- NOTE | 2022-08-24 20:52 | NUR ---
CALL LIGHT ANSWERED. INDEPENDENT TO BSC FOR VOID. BACK IN BED. ASSESSMENT COMPLETE. LUNG SOUNDS CLEAR, CRACKLES RLL. pt DENIES SOB. IV SITE INFILTRATED, NEW IV PLACED RIGHT WRIST, 22 GAUGE WNL. ORAL CARE COMPLETE, DENTURES REMOVED. HOSPITAL BIPAP APPLIED, SPO2 94%. CALL LIGHT IN REACH.
--- NOTE | 2022-08-24 22:20 | NUR ---
pt RESTING IN BED WITH EYES CLOSED, BIPAP MASK ON. BREATHING UNLABORED, RR 18. NO DISTRESS NOTED. pt LYING ON RIGHT SIDE.
--- NOTE | 2022-08-24 23:05 | NUR ---
CALL LIGHT ANSWERED. SBA TO BSC FOR VOID. BACK IN BED. BIPAP APPLIED. SPO2 94% ON CPOX.
--- NOTE | 2022-08-25 02:22 | NUR ---
pt RESTING IN BED WITH BIPAP ON, SPO2 95% ON TELE CPOX. NO DISTRESS NOTED.
[2022-08-25 04:08] VITALS: BP 154/69
--- NOTE | 2022-08-25 07:30 | NUR ---
pt resting in bed w bipap. bs taken. rn notified. no needs. call light within reach
--- NOTE | 2022-08-25 07:40 | NUR ---
BIPAP removed and pt on 10L OM. Tolerating well at 96% SPO2. No needs at this time.
--- NOTE | 2022-08-25 07:44 | NUR ---
kodak received from [facility]. PT resting in bed with bi pap in place. SP02 is 96%. No needs identified.
--- NOTE | 2022-08-25 08:10 | NUR ---
Rounded on patient as noted SPO2 to be at 89%, pt eating breakfast. Checked O2, at 10L, pt returns to 92%.
[2022-08-25 08:49] VITALS: BP 150/73
--- NOTE | 2022-08-25 09:28 | NUR ---
pt resting in bed. vitals and is and os complete. pt assisted up to bsc. sba. pt to chair. pt bedbath complete by this storage manager. linens changed. hair combed. no needs. call light within reach
--- NOTE | 2022-08-25 10:35 | NUR ---
Pt requests snack, sugar free pudding provided. Discussed fluid restriction and pt states she can "wait until lunch for more water". No needs at this time, on 10L OM, spo2 91%.
--- NOTE | 2022-08-25 11:38 | NUR ---
pt call light answered. pt req to use bsc. pt up to bsc sba. pt back to chair. bs taken. rn notified. no needs. call light within reach
[2022-08-25 13:17] VITALS: BP 143/66
--- NOTE | 2022-08-25 13:22 | NUR ---
SPOKE TO PATIENT ABOUT THE PLAN OF CARE.PATIENT CONTINUES TO REQUIRE HIGH FLOW QXYGEN. PATIENT PLANS TO GO HOME WHEN MEDICALLY CLEARED.
--- NOTE | 2022-08-25 13:26 | NUR ---
PATIENT AMBULATED FROM CHAIR TO COMMODE WITH SBA. PT TOLERATED ACTIVITY WELL AND REPORTED NO SOB, 02 SAT LOW 90'S WITH ACTIVITY. HELPED PATIENT TO GET COMFORTABLE IN BED, HOB ELEVATED, PT SWITCHED FROM NC 10 L TO BIPAP. CALL LIGHT IN REACH.
--- NOTE | 2022-08-25 15:20 | NUR ---
PT UP FROM BED TO COMMODE, STEADY GAIT, MOVES INDEPENDENTLY, SBA FOR SAFETY. RETURNED TO BED, BIPAP CONTINUED. PT HAS NO OTHER NEEDS AT THIS TIME. CONITNUOUS PULSE OX ON AND CALL LIGHT IN REACH.
--- NOTE | 2022-08-25 16:11 | NUR ---
Received signed orders for noninvasive vent. Faxed face sheet, order, H&P, progress notes for 2 days to [facility]. Pt has her Bipap from [facility].
[2022-08-25 17:16] VITALS: BP 152/53
--- NOTE | 2022-08-25 17:40 | NUR ---
PATIENT GIVEN 1 UNIT OF INSULIN PER SLIDING SCALE, PO LIPITOR GIVEN.
--- NOTE | 2022-08-25 19:30 | NUR ---
REPORT RECEIVED FROM FUNMILAYO SEWELL. pt RESTING IN BED WITH 8L OXYGEN BY NC. SPO2 93% ON TELE CPOX. RT NOW IN ROOM FOR SCHEDULED NEB TREATMENT.
[2022-08-25 20:04] VITALS: BP 140/59
--- NOTE | 2022-08-25 20:19 | NUR ---
pt BACK IN BED AFTER UP TO BSC. SPO2 89% WITH 9L OXYGEN IN PLACC, TITRATED OXYGEN TO 10L BY HIGH FLOW NC TO MAINTAIN SATURATIONS >92%. ASSESSMENT COMPLETE. CRACKLES AUSCULTATED RLL POSTERIORLY. pt DENIES SOB. SCHEDULED MEDICATIONS ADMINISTERED. pt REFUSES TO HAVE LEGS ELEVATED ON PILLOWS. TRACE EDEMA BLE. SF SNACK PROVIDED. CALL LIGHT IN REACH. pt VERBALIZES UNDERSTANDING TO CALL WHEN READY FOR BIPAP.
--- NOTE | 2022-08-25 20:57 | NUR ---
pt ASSISTED WITH PUTTING ON HER BIPAP MASK PER REQUEST OF ASSEMBLER BODY. MASK IN PLACE, MACHINE OFF. TURNED ON AND VERIFIED SETTINGS WITH RT SANJEEV VIA PHONE SETTINGS ALREADY IN PLACE WHEN TURNING ON MACHINE. NO FURTHER NEEDS OR CONCERNS, CALL LIGHT IN REACH. CPOX IN PLACE, SPO2 LOW 90'S.
--- NOTE | 2022-08-25 21:06 | NUR ---
pt REMAINS AWAKE AND RESTING IN CHAIR, VISITOR ALSO REMAINS IN ROOM AND TALKING WITH pt. EMPLOYEE RELATION MANAGER BRIANNA ALSO IN ROOM AND DENIES NEEDS OR CONCERNS. WILL CONTINUE TO MONITOR.
--- NOTE | 2022-08-25 21:45 | NUR ---
CALL LIGHT ANSWERED SBA TO BSC FOR VOID. 10L OXYGEN BY HIGH FLOW NC APPLIED FOR TRANSFER. KEILA REED IN ROOM.
--- NOTE | 2022-08-26 00:51 | NUR ---
pt UP TO BSC WITH AIR DEFENSE CONTROL OFFICER SINTA ASSIST. SPO2 93% ON TELE CPOX WITH 10L OXYGEN BY HIGH FLOW NC IN PLACE.
--- NOTE | 2022-08-26 06:03 | NUR ---
[facility] DOWNTIME [phone]. SEE PAPER CHARTING.
--- NOTE | 2022-08-26 07:52 | NUR ---
SHIFT REPORT RECEIVED FROM FUNMILAYO CHRISTIAN AT 0703 HOURS, PT RESTING WITH EYES CLOSED. BIPAP ON, IPAP 24, EPAP 15, RATE 14, FIO2 40%.
--- NOTE | 2022-08-26 08:36 | NUR ---
IN FOR ASSESSMENT, PT INITIALLY RESTING WITH EYES CLOSED. CASE MANAGER SPECIALIST AND [facility] STUDENTS IN FOR CBG, 85. PT DESIRES TO BE UP IN CHAIR FOR BREAKFAST, TRAY AT BEDSIDE. 1-PERSON STANDBY ASSIST ONLY FOR PT TRANSFER TO CHAIR, HFNC PLACED ON PT AT 10LPM, PT LATER REQUESTED TO USE HER SIMPLE MASK, WHICH WAS PLACED ON HER AT 10LPM WHILE IN THE CHAIR. PT HAS NO FURTHER NEEDS AT THIS TIME. CALL LIGHT AND PERSON ITEMS IN REACH.
[2022-08-26 09:39] VITALS: BP 145/51
--- NOTE | 2022-08-26 10:20 | NUR ---
PT IN ROOM WITH PT 0945, PT AMBULATING THE HALLWAY WITH PT.
--- NOTE | 2022-08-26 11:41 | NUR ---
SPOKE TO PATIENT ABOUT THE DISCHARGE PLAN OF CARE. [facility] WILL BRING A NEW POSSITIVE PRESSURE VENT. [facility] IS PLANNING ON SET-UP TOMORROW. PATIENT WILL BE SENT HOME WHEN MEDICALLY STABLE.
--- NOTE | 2022-08-26 12:05 | NUR ---
IMAGING IN WITH PT. WILL CHECK BACK
--- NOTE | 2022-08-26 12:31 | NUR ---
PATIENT UP TO BSC FOR VOID AND BACK TO CHAIR. OXYMASK IN PLACE. FLOOR MOPPED UP, CALL LIGHT IN EASY REACH
[2022-08-26 13:21] VITALS: BP 142/49
--- NOTE | 2022-08-26 16:58 | NUR ---
PATIENT EATING DINNER UP IN HER CHAIR.
[2022-08-26 18:37] VITALS: BP 151/52
--- NOTE | 2022-08-26 18:58 | NUR ---
PT UP IN CHAIR, USED CALL LIGHT, THEN VOIDED RN ENTERED THE ROOM. TRANSFERRED SELF TO A DIFFERENT CHAIR THAT WAS BROUGHT INTO THE ROOM AND WE CLEANED THE FLOOR AND CHAIR, NEW SOCKS APPLIED TO PT'S FEET. PT REQUESTED MORE ICED WATER, DOCUMENTED ON FLUID CHART, SHE STATES SHE DID NOT DRINK THE BEVERAGE WITH HER MEAL. PT BACK TO CHAIR, CALL LIGHT IN REACH.
--- NOTE | 2022-08-26 19:01 | NUR ---
PT USED CALL LIGHT TO REQUEST ASSISTANCE WITH TOILETING. SHOWER COMMODE BROUGHT NEAR BED AT PT'S REQUEST. SHE STATED SHE WILL USE CALL LIGHT WHEN SHE IS FINISHED AFTER THIS TIME. CALL LIGHT IN REACH. DENIES FURTHER NEEDS AT THIS TIME. VOIDING CLEAR URINE, 600ML AT A TIME.
--- NOTE | 2022-08-26 19:30 | NUR ---
REPORT RECEIVED FROM DAY SHIFT RN. PT RESTING IN BED. NO DISTRESS NOTED. PT ON 5L NC OF 02. SATING LOW 90'S. SAFETY PRECAUTIONS MAINTAINED. CALL LIGHT WITHIN REACH. WILL CONTINUE TO MONITOR.
[2022-08-26 19:50] VITALS: BP 167/69
--- NOTE | 2022-08-26 20:15 | NUR ---
PT ASSISTED TO BSC. I&O CHARTED. VSS. MEDICATIONS GIVEN AND ASSESSMENT DONE. OXYGEN PUT UP TO 15L NC UPON AMBULATION WITH O2 SATS RANGING FROM 85%-92%. AFTER PT ASSISTED BACK IN BED AND RESTING, O2 TURNED DOWNED TO 10L NC WITH SATS AT 92%. BS 155, 1 UNIT GIVEN PER SLIDING SCALE. SAFETY PRECAUTIONS MAINTAINED. CALL LIGHT WITHIN REACH. WILL CONTINUE TO MONITOR.
--- NOTE | 2022-08-26 20:43 | NUR ---
pt RESTING IN BED, DENTURES REMOVED. BIPAP APPLIED. CALL LIGHT IN REACH.
--- NOTE | 2022-08-26 21:20 | NUR ---
CALL LIGHT ANSWERED. SBA TO BSC FOR VOID. 10L OXYGEN BY OXYMASK IN PLACE WITH TRANSFER, SPO2 89% WHEN BACK IN BED. BIPAP APPLIED, INCREASES TO >90%. LIGHTS OFF IN ROOM, CALL LIGHT IN REACH.
--- NOTE | 2022-08-26 23:21 | NUR ---
Answered call light, patient used bedside commode. Transferred well. Switced to mask oxygen while using commode and swithced back to BiPAP when returned back to bed. Call light within reach and nothing else needed.
[2022-08-27] VITALS (29 sets, daily range): BP systolic 105–165; BP diastolic 59–114
--- NOTE | 2022-08-27 02:05 | NUR ---
PT RESTING IN BED WITH EYES CLOSED. PT ON BIPAP. PT STABLE. SAFETY PRECAUTIONS MAINTAINED. CALL LIGHT WITHIN REACH. WILL CONTINUE TO MONITOR.
--- NOTE | 2022-08-27 03:28 | NUR ---
ASSISTED PT UP TO THE BSC. SWITCHED O2 DELIVERY TO 10 L O2 PER SIMPLE MASK. PT VOIDED AND WAS ASSITED BCAK TO BED. O2 SWITCHED BACK.
--- NOTE | 2022-08-27 06:14 | NUR ---
PT RESTING IN BED, VITALS AND IS AND OS COMPLETE. PT DID NOT NEED TO USE THE BR AT THIS TIME. PT RESTING IN BED ON BIPAP. NO NEEDS. CALL LIGHT WITHIN REACH.
--- NOTE | 2022-08-27 06:27 | NUR ---
PT RESTED WELL DURING THE SHIFT. PT GOT UP TO BSC THROUGHOUT SHIFT NEEDED WITH GOOD OUTPUT. BIPAP ON FOR MOST OF SHIFT. VSS. PT DENIED ANY COMPLAINTS OR CONCERNS. SAFETY PRECAUTIONS MAINTAINED. CALL LIGHT WITHIN REACH. WILL CONTINUE TO MONITOR.
--- NOTE | 2022-08-27 08:35 | NUR ---
Pt eating breakfast. Denies needs. Aware Svitlana is working on a noninvasive vent auth.
--- NOTE | 2022-08-27 09:04 | NUR ---
PULSE OX ALARMING. AUTO TRANSPORT DRIVER IN TO CHECK ON PATIENT. OXYGEN NOT HOOKED TO WALL. O2 SATS 81% ON ROOM AIR, PURSED LIP BREATHING, CIRCUMORAL CYANOSIS NOTED. OXYGEN INCREASED TO 10L/MIN PER HIGH FLOW CANULA TO IMPROVE OXYGENATION. VITALS OBTAINED. DR. NELSON NOTIFIED ORDERS FOR STAT EKG. CAROL RT, NOTIFIED. IN ROOM TO OBTAIN EKG AT THIS TIME. O2 SATS IN HIGH 80'S AT THIS TIME. CONTINUING TO IMPROVE.
--- NOTE | 2022-08-27 09:11 | NUR ---
DR. NELSON IN TO ASSESS PATIENT AND REVIEW EKG. VERBAL ORDER FOR METOPROLOL 5 MG IV X1 NOW AND TRANSFER TO CCU, JEWEL SETTER, SONIA AND CCU NOTIFIED.
--- NOTE | 2022-08-27 09:20 | NUR ---
PT ARRIVES TO ROOM 127 VIA CHAIR WITH MS FUNMILAYO ALEX. PT AAO X 4, RATES IN 150'S UPON CONNECTION TO CENTERAL MONITORING, PT DENIES PAIN OR FEELING OF RAPID HEART RATES, STATES SHE FEELS UNCHANGED FROM PREVIOUS DAYS. 10L VIA OXYMASK WITH SP02 92%, RR 19 WITHOUT DISTRESS. ORDER FOR IV PUSH LOPRESSOR RECEIVED. SEE EMAR.
--- NOTE | 2022-08-27 11:00 | NUR ---
PT REMAINS UP IN CHAIR WITH FEET ELEVATED, REMAINS IN AFIB WITH ELEVATED RATES -DILT DRIP STARTED, BP STABLE. PT DENIES PAIN, SOB OR ANY S/S RELATED TO HR.
--- NOTE | 2022-08-27 11:30 | NUR ---
Notified by staff, pt in AFIB with RVR and will return to CCU.
--- NOTE | 2022-08-27 12:14 | NUR ---
repositioned pt reclined in chair with oxymask after lunch - 100% of reg diet consumed. pt denies needs, denies tylenol - mg iv started and iv drip cardizem charted on flowsheet. call light in reach .
--- NOTE | 2022-08-27 12:30 | NUR ---
PATIENT BACK TO BED FOR NAP PER REQUEST, 6L OXYMASK IN PLACE. HR 128-130 WITH THIS ACTIVITY. BIPAP NOW ON, AND PUREWICK IN PLACE. CALL LIGHT AND PERSONAL CELL PHONE IN EASY REACH. NO OTHER NEEDS AT THIS TIME
--- NOTE | 2022-08-27 13:03 | NUR ---
PT ASLEEP, FUNMILAYO DRUMMOND REQUESTED I NOT DISTURB PT AT THIS TIME.
--- NOTE | 2022-08-27 13:17 | NUR ---
PT IS ASLEEP IN BED WITH BIPAP ON, RECHECKED BP IT IS 122/81 MAP 96, HR 118 AFIB, TITRATED DILTIAZEM DRIP BY 2.5 MCG TO 17.5 AT THIS TIME WILL RECHECK IN 15 MINUTES.
--- NOTE | 2022-08-27 13:48 | NUR ---
PT HR 119, AFIB, BP 139/110 MAP 116 TITRATED DILT DRIP BY 2.5 MCG TO 20 MCG, INFORMED PRIMARY NURSE AUSTEN Howe RN.
--- NOTE | 2022-08-27 13:52 | NUR ---
PER DR NELSON WANTS DILTIAZEM DRIP DOWN BACK TO 15, HE WILL CHANGE THE TIRATION ORDER ON EMAR TO NO LONGER REFLECT GOING UP TO MCG, BUT 15 AND PT TO HAVE A DOSE OF LOPRESSOR. DILT DRIP TURNED BACK DOWN TO 15 MCG.
--- NOTE | 2022-08-27 14:12 | NUR ---
pt resting in bed on bipap, denies needs, call light in reach - hr 117 cardizem drip at 15 - 5 mg bolus of lopressor given per dr/emar.
--- NOTE | 2022-08-27 15:30 | NUR ---
Recieved a call from Alma at [facility]. noninvasive vent has not been authed as insurance needs further documentation. UPdated pt returned to CCU, I will update Dr. Hodgson.
--- NOTE | 2022-08-27 15:48 | NUR ---
pt request break from bipap - placed oxymask 6L - a fib continues, 15 on cardizem drip call light in reach denies needs.
--- NOTE | 2022-08-27 17:17 | NUR ---
pt ate 100% meal - denies any pain or discomfort nc 5L 91% sats, hr 108, dilt drip continues at 15. call light in reach - flat affect. resting in bed.
--- NOTE | 2022-08-27 17:42 | NUR ---
offered pt to use bipap at this time - refused, also refused mask - nc 5l sats 90%, visiting with guest - call light in reach no change in drip.
--- NOTE | 2022-08-27 18:00 | NUR ---
RECEIVED REPORT FROM AUSTEN Howe RN, PT REFUSING TO WEAR BIPAP AT THIS TIME, PT IN BED HAS 5L O2 NC, PER HER CHRONIC O2 NEEDS. SATS 89-91% AT THIS TIME. RR WNL. PT ON DILTIAZEM DRIP AT 15MG/HR. HR IN THE 110'S. PT DENIES ANY SYMPTOMS.
--- NOTE | 2022-08-27 20:00 | NUR ---
RECIEVED REPORT ON PT, ASSESSED PT AND ADDRESSED ANY NEEDS AT THIS TIME, PT DENIES ANY CHEST PAIN/SOB, HR 90-100S, SEE MAR FOR DILT TITRATIONS, NO CHANGES WERE MADE AT THIS TIME, WILL CONTINUE TO MONITOR AND NOTIFY PROVIDER WITH ANY CHANGES IN PT STATUS.
[2022-08-28] VITALS (17 sets, daily range): BP systolic 114–208; BP diastolic 66–102
--- NOTE | 2022-08-28 06:36 | NUR ---
PT DID WELL OVER SECRETARIAL TEACHER, ABLE TO TITRATE DILT DRIP DOWN, SEE MAR FOR DETAILS, RT TITRATED DOWN BIPAP SETTINGS TO PT HOME O2 SETTINGS AND PT MAINTAINED SATS, PT DID HAVE A BRIEF PAUSE AROUND 0115, SEE PAPER CHART FOR DETAILS, PT RESTED WELL, WILL CONTINUE TO MONITOR AND NOTIFY PROVIDER WITH ANY CHANGES IN PT STATUS.
--- NOTE | 2022-08-28 07:30 | NUR ---
Report received from night rn - pt resting in bed supine with bipap in place. Spo2 92%, rr 14, no distress noted.
--- NOTE | 2022-08-28 08:43 | NUR ---
ASSESSMENT COMPLETE - REMAINS IN AFIB, DILT DRIP AT 5MG CURRENTLY. PT UP IN CHAIR FOR BREAKFAST, AM CARES COMPLETE, LINEN CHANGED. NO INSULIN COVERAGE REQUIRED THIS AM. PT STATES SHE DID NOT SLEEP WELL LAST NIGHT, IN ROOM ROUNDING, MELATONIN REQUESTED. PT USED HOME BIPAP LAST NIGHT. PT DENIES PAIN OR S/S OF AFIB.
--- NOTE | 2022-08-28 08:50 | NUR ---
PATIENT RESTING IN BED, HOME BIPAP IN PLACE. PATIENT SWITCHED TO NC AND UP TO BSC FOR VOID, AND THEN TO RECLINER FOR BREAKFAST. WASHCLOTH PROVIDED FOR FACE AND HANDS. PARTIAL BEDBATH GIVEN AT THIS TIME. PATIENT STATES SHE DIDN'T GET MUCH SLEEP LAST NIGHT, RN AWARE. LINEN CHANGED, CALL LIGHT AND PERSONAL PHONE IN EASY REACH.
--- NOTE | 2022-08-28 10:00 | NUR ---
PT UP TO BSC TO VOID - URINE CONCENTRATED. STEADY ON FEET, STANDBY ASSIST. BACK TO BED TO REST. 6L VIA NC MAINTAINING SP02. DILT DRIP REMAINS AT 5MG.
--- NOTE | 2022-08-28 10:03 | NUR ---
Updated progress note and RX for noninvasive vent signed by Dr. Hodgson faxed to Alma at [facility] [place].
--- NOTE | 2022-08-28 10:30 | NUR ---
PT CONVERTED TO SR - MD AWARE. RATES REMAIN ELEVATED IN 90'S AT REST.
--- NOTE | 2022-08-28 10:38 | NUR ---
PATIENT ON A 60 GM CONS CARB, 2 GM SODIUM DIET WITH 1600 ML FLUID RESTRICTION. SHE IS EATING 100% OF MEALS. NO NUTRITION INTERVENTION NEEDED AT THIS TIME. WILL REMAIN AVAILABLE IF NEEDED.
--- NOTE | 2022-08-28 11:08 | NUR ---
PT RESTING IN BED, LISTENING TO PHONE. MARY ANN VALERIO. PT RECEIVED A PHONE CALL, WILL FOLLOW
--- NOTE | 2022-08-28 11:09 | NUR ---
CASE MANAGEMENT IS WAITING FOR AUTH FOR THE NON-INVASIVE POSITIVE PRESSURE HOME VENT. TO BE APPROVED FOR HOME. [facility] WILL NOTIFY WHEN IT IS APPROVED. [facility] PLANS TO BRING IT TO THE HOSPITAL FOR SET-UP TODAY IF APPROVED.
--- NOTE | 2022-08-28 11:42 | NUR ---
DILT DRIP TURNED OFF, REMAINS IN NSR. - PT RESTING IN BED, NC AT 6L. DENIES NEEDS AT THIS TIME. CALL LIGHT IN REACH.
--- NOTE | 2022-08-28 12:45 | NUR ---
PATIENT SITTING UP IN CHAIR AND FINISHED WITH LUNCH. R/T IN FOR NEB TREATMENT AT THIS TIME.
--- NOTE | 2022-08-28 13:00 | NUR ---
PATIENT BACK TO BED FOR NAP, BIPAP IN PLACE. CALL LIGHT IN EASY REACH
--- NOTE | 2022-08-28 15:59 | NUR ---
[facility] STAFF DONE IN ROOM FITTING FOR NON INVASIVE VENTILATOR
--- NOTE | 2022-08-28 19:36 | NUR ---
Received report from RN, all concerns were addressed at this time, pt was up to chair upon assessment, transferred to bed SBA, pt denies any pain or SBO at this time, remains ST, HR in low 100s, oxygenating well, currently on 6L openmask sating in the low 90s, will continue to monitor and notify provider with any changes in pt status.
--- NOTE | 2022-08-28 19:51 | EKG ---
[facility] [address] [facility] [place] [address] Signed Atrial fibrillation with rapid ventricular response Nonspecific ST and T wave abnormality Abnormal ECG When compared with ECG of 19-AUG-2021 12:35, Atrial fibrillation has replaced Sinus rhythm Vent. rate has increased BY [address] now depressed in Inferior leads Nonspecific T wave abnormality now evident in Inferior leads Nonspecific T wave abnormality no longer evident in Anterior leads Confirmed by Isidro Cueto MD () on 08/28/2022 7:51:18 PM Electronically Signed By: ISIDRO CUETO MD 08/28/221950 PATIENT NAME: ELIZABETH ESTRELLA Electrocardiogram DATE OF : 58 PHYSICIAN: ISIDRO CUETO MD REPORT #: [id number] REPORT IS CONFIDENTIAL AND NOT TO BE RELEASED WITHOUT AUTHORIZATION
[2022-08-29] VITALS (8 sets, daily range): BP systolic 118–173; BP diastolic 75–132
--- NOTE | 2022-08-29 00:53 | NUR ---
PT HAS SLEPT WELL WITH NEW TTV-VAPS AE MACHINE, PT DENIES ANY PAIN AT THIS TIME, REMAINS ST IN THE 100-110'S, OXYGENATING WELL, BP STABLE, WILL GIVE SCHEDULE LOPRESSOR AT 0200, WILL CONTINUE TO MONITOR AND NOTIFY PROVIDER WITH ANY CHANGES IN PT STATUS.
--- NOTE | 2022-08-29 06:34 | NUR ---
PT SLEPT MAJORITY OF THE NIGHT, WOKE UP A COUPLE TIMES TO VOID, HR REMAINED IN THE 100-110'S, BP STABLE, OXYGENATING WELL WITH NEW MACHINE, DENIES ANY PAIN OR SOB, NO SIGNIFICANT CHANGES, WILL CONTINUE TO MONITOR AND NOTIFY PROVIDER WITH ANY CHANGES IN PT STATUS.
--- NOTE | 2022-08-29 07:30 | NUR ---
REPORT RECEIVED FROM CHANA MELLO.
--- NOTE | 2022-08-29 09:00 | NUR ---
ASSESSMENT COMPLETE - PT UP TO CHAIR TO EAT BREAKFAST. RATE REMAINS LOW 100'S SR. SP02 STABLE ON 6L NC. PT STATES SHE HAD NO COMPLAINTS WITH NEW NI VENT MACHINE LAST NIGHT. DENIES PAIN OR ANY NEW SYMPTOMS. VOIDING QS. AM CARES COMPLETE, LINEN CHANGED.
--- NOTE | 2022-08-29 10:59 | NUR ---
PT ASSISTED UP TO BSC - STEADY ON FEET, 02 DEMANDS NOT INCREASED WITH AMBULATION. VOIDING QS. BACK TO BED. HR REMAINS LOW 100'S.
--- NOTE | 2022-08-29 12:04 | NUR ---
PT STATES SHE ONLY TAKES HER ALBUTEROL ABOUT ONCE A MONTH. PT'S LUNGS HAVE HAD NO CHANGES IN SEVERAL DAYS WITH NEBULIZERS. WE WILL MOVE TO PRN IS HER HOME REGIMINE TO MAKE SURE THIS WORKS FOR HER BEFORE SHE DISCHARGES.
--- NOTE | 2022-08-29 13:06 | NUR ---
PT UP TO BSC TO VOID. BACK TO BED PER PT REQUEST WITH HOME NI VENT MACHINE APPLIED. PT DEMONSTRATED APPROPRIATE USE AND KNOWLEDGE OF USING MACHINE AND APPLYING MASK BY SELF.
--- NOTE | 2022-08-29 14:39 | NUR ---
PT NOTED TO BE IN AFIB RYTHEM ON CENTERAL MONITOR. RATES AVERAGING 80'S-90'S. NOTIFIED. PT ASLEEP IN BED WITH NI VENT IN PLACE.
--- NOTE | 2022-08-29 17:52 | NUR ---
PT REMAINS IN AFIB WITH RATES IN 80S-90S EVEN WITH ACTIVITY UP TO CHAIR.
--- NOTE | 2022-08-29 20:01 | NUR ---
while receiving report RT was in room with pt, monitor showed pt HR dropped to 29, pt was awake/alert, denied any lightheadedness/chest pain, BP was stable, MD was called and came to bedside, will continue to monitor and notify provider with any changes in pt status
--- NOTE | 2022-08-30 02:18 | NUR ---
PT HAS SLEPT WELL, BRADYCADIC IN THE 50'S, BP STABLE, OXYGENATING WELL, WILL CONTINUE TO MONITOR
[2022-08-30 04:00] VITALS: BP 150/68
--- NOTE | 2022-08-30 05:13 | NUR ---
PT SLEPT WELL THROUGH AFTER SCHOOL PROGRAM COORDINATOR, UP TO BSC X2, HR WAS IN THE 50-60'S MOST OF THE NIGHT, BP STABLE, OXGENATING WELL, DENIES ANY PAIN OR SOB, WILL CONTINUE TO MONITOR
[2022-08-30 08:56] VITALS: BP 154/67
--- NOTE | 2022-08-30 08:57 | NUR ---
ASSESSMENT COMPLETE - PT HR IRREGULAR WITH RATES AROUND 60 BPM. PT REMAINS ASYMPTOMATIC WITH THIS. NO OTHER CHANGES AT THIS TIME. UP TO CHAIR FOR BREAKFAST, STEADY ON FEET. VOIDING QS. NO INSULIN COVERAGE NEEDED. 100% CONSUMED. PT DENIES NEED AT THIS TIME. CALL LIGHT IN REACH.
--- NOTE | 2022-08-30 09:42 | NUR ---
PT BACK TO BED PER REQUEST AFTER MD ROUNDING.
[2022-08-30 11:00] VITALS: BP 139/82
--- NOTE | 2022-08-30 12:03 | NUR ---
pt up to chair for lunch. dc orders received. pt denies questions at this time.
[2022-08-30] MEDS ORDERED: ELIQUIS5 MG PO (12:17)
[2022-08-30] MEDS ORDERED: TORSEMIDE20 MG PO (12:18)
[2022-08-30] MEDS ORDERED: JARDIANCE10 MG PO (12:20)
[2022-08-30 13:36] VITALS: BP 145/86
== END 2022-08-30 14:05 | disposition home or self-care (01) | DRG 193 ==
LOC: ED 13:41 → CCU 16:05 → MS 08-21 13:35 → CCU 08-27 09:20
PROVIDERS: ADMIT Internal Medicine; ATTEND Family Medicine
PROC: 5A09557 Assistance with Respiratory Ventilation, Greater than 96 Consecutive Hours, Continuous Positive Airway Pressure (ICD-10-PCS; 2022-08-21)
PROC: 4A133R1 Monitoring of Arterial Saturation, Peripheral, Percutaneous Approach (ICD-10-PCS; principal; 2022-08-23)
DX: J18.9 Pneumonia, unspecified organism (principal); I50.33 Acute on chronic diastolic (congestive) heart failure; J96.21 Acute and chronic respiratory failure with hypoxia; J44.0 Chronic obstructive pulmonary disease with (acute) lower respiratory infection; J44.1 Chronic obstructive pulmonary disease with (acute) exacerbation; E66.2 Morbid (severe) obesity with alveolar hypoventilation; Z68.43 Body mass index [BMI] 50.0-59.9, adult; R00.1 Bradycardia, unspecified; Z20.822 Contact with and (suspected) exposure to COVID-19; E87.6 Hypokalemia; E03.9 Hypothyroidism, unspecified; I48.0 Paroxysmal atrial fibrillation; I11.0 Hypertensive heart disease with heart failure; E11.65 Type 2 diabetes mellitus with hyperglycemia; E79.0 Hyperuricemia without signs of inflammatory arthritis and tophaceous disease; F17.210 Nicotine dependence, cigarettes, uncomplicated; K58.9 Irritable bowel syndrome, unspecified; M16.0 Bilateral primary osteoarthritis of hip; K21.9 Gastro-esophageal reflux disease without esophagitis; I27.20 Pulmonary hypertension, unspecified; F32.A Depression, unspecified; Z96.643 Presence of artificial hip joint, bilateral; Z71.6 Tobacco abuse counseling; Z99.81 Dependence on supplemental oxygen; Z90.89 Acquired absence of other organs; Z90.710 Acquired absence of both cervix and uterus; Z98.890 Other specified postprocedural states; Z88.5 Allergy status to narcotic agent; Z88.6 Allergy status to analgesic agent; Z88.8 Allergy status to other drugs, medicaments and biological substances; Z79.890 Hormone replacement therapy; Z79.899 Other long term (current) drug therapy
CPT/HCPCS: 36415; 36600; 71045; 71260; 80048; 80053; 82803; 83036; 83735; 83880; 85025; 87502; 93005; 93010; 93306; 94640; 94660; 94760; 94762; 94799; 97110; 97116; 97162; 97530; A9270; J0456; J0696; J1650; J1815; J1940; J2920; J2930; J3475; J3480; J3490; J7060; J7512; Q9967; U0003

== ENCOUNTER 2024-05-02 15:52 | Inpatient (IN) | payer OTHER ==
[~2024-05-02] VITALS: Ht 175.3 cm; Wt 197.3 kg
[~2024-05-02 15:52] MED LIST changes: +AMLODIPINE BESY10 MG PO; +ELIQUIS5 MG PO; +JARDIANCE10 MG PO; +LURASIDONE HCL80 MG PO; +METOPROLOL SUC200 MG PO; +PIOGLITAZONE HC30 MG PO; +TORSEMIDE20 MG PO; +TRULICITY3 MG/0.5 M SUB-Q
[2024-05-02 16:11] LABS: HEMOGLOBIN 12.1 g/dL (12.0-18.0)
[2024-05-02 16:14] LABS: BASOPHILS 0.8 % (0-2); EOSINOPHILS 1.1 % (0-6); HEMATOCRIT 38.7 % (35.0-50.0); LYMPHOCYTES 12.4 % (24-44); MCH 28.8 (27-36); MCHC 31.4 g/dl (30-36); MCV 91.7 fl (81-99); MONOCYTES 8.4 % (0-12); NEUTROPHILS 77.3 % (39-80); PLATELET COUNT 154 K/uL (140-440); RBC 4.22 M/ul (4.3-5.7); RDW 18.4 (10.5-15.0)
[2024-05-02 16:24] LABS: PH, VENOUS 7.364 (7.31-7.41)
[2024-05-02] MEDS ORDERED: dilTIAZem HCL 25 MG/5 ML VIAL IV ONE (16:30)
[2024-05-02] MEDS ORDERED: DILTIAZEM HCl/D5W 125 ML IV ONE (16:30)
[2024-05-02 16:32] LABS: ALBUMIN 3.8 g/dL (3.4-5.0); ALBUMIN/GLOBULIN RATIO 1.06 (1.1-2.4); ANION GAP 9.9 (7-21); BILIRUBIN, TOTAL 0.9 ng/dL (0.2-1.0); BUN/CREATININE RATIO 17.94 (6.0-28.6); CALCIUM 9.5 mg/dL (8.5-10.1); CREATININE, SERUM 1.17 mg/dL (0.55-1.02); POTASSIUM 3.9 mmol/L (3.5-5.1); PROTEIN, TOTAL 7.4 g/dL (6.4-8.2)
[2024-05-02] MEDS ORDERED: FUROSEMIDE 40 MG/4 ML VIAL IV STA (17:28)
[2024-05-02] MEDS ORDERED: POTASSIUM CHLORIDE 10 MEQ TABCR PO ONE (17:30)
[2024-05-02] MEDS ORDERED: MOUNJARO12.5 MG/0. SQ (17:52)
[2024-05-02] MEDS ORDERED: DEXTROSE 50% 50 ML SYR IV PRN ×2 (18:00)
[2024-05-02] MEDS ORDERED: GLUCAGON,HUMAN RECOMBINANT 1 MG/ML VIAL SUB-Q PRN (18:00)
[2024-05-02] MEDS ORDERED: DEXTROSE 5% 1,000 ML IV PRN (18:00)
[2024-05-02] MEDS ORDERED: ondansetron HCL 4 MG/2 ML VIAL IV PRN (18:00)
[2024-05-02] MEDS ORDERED: ACETAMINOPHEN 325 MG TAB PO PRN (18:00)
[2024-05-02] MEDS ORDERED: IBLOOD GLUCOSE TEST STRIP 1 EA TEST XX PRN (18:00)
[2024-05-02 18:30] VITALS: BP 162/81
--- NOTE | 2024-05-02 18:32 | EKG ---
[facility] [address] [facility] [place] [address] Signed Atrial fibrillation with rapid ventricular response Low voltage QRS Cannot rule out Anterior infarct , age undetermined Abnormal ECG When compared with ECG of 27-AUG-2022 09:00, ST no longer depressed in Inferior leads Nonspecific T wave abnormality now evident in Anterior leads Confirmed by Yogesh Soto MD ([id number]) on 05/02/2024 6:31:49 PM Electronically Signed By: YOGESH SOTO MD 05/02/24 183 PATIENT NAME: ELIZABETH ESTRELLA Electrocardiogram DATE OF : 58 PHYSICIAN: YOGESH SOTO MD REPORT #: [id number] REPORT IS CONFIDENTIAL AND NOT TO BE RELEASED WITHOUT AUTHORIZATION
[2024-05-02] MEDS ORDERED: DIGOXIN 500 MCG/2 ML AMP IV ONE (18:45)
--- NOTE | 2024-05-02 19:06 | NUR ---
PATIENT ARRIVES TO CCU AROUND 1840 TO 127 FOR ACUTE ON CHRONIC CHF EXACERBATION WITH PRESERVED EJECTION FRACTION. PATIENT IS VISIBLY DYSPNEIC ON ADMISSION. PT ON DILT GTT AT 25 MG/HR UPON ARRIVAL AND HR CONTINUES TO BE IN THE 130-140s. PATIENT ON AIR LIFT SHEET AND X4 PERSON ASSIST PATIENT IS MOVED TO CCU BED. PT TOLERATED WELL. PT ALSO ON 12 L OXYMASK UPON ARRIVAL WITH SP02 IN THE LOWER 90s. NEW ORDERS REC'D FOR IV DIGOXIN PER DR. AGUILERA. PT HAS DEVENDRACK IN [place] AND EDUCATED ON USE OF THIS, WHICH SHE IS FAMILIAR WITH FROM PRIOR HOSPITALIZATIONS. ADMIT ASSESSMENT COMPLETE. PT'S ROOM MATE TO BE BRINGING IN HER PERSONAL BIPAP FROM HOME. PATIENT ENDORSES SHORTNESS OF BREATH. PT HAS EDEMA IN LOWER LEGS, BUT IT IS MOST SEVERE IN HER MID TRUNK SECTION AND LARGE PANNUS AREA. PT ORIENTED TO BED FUNCTIONS AND CALL LIGHT. PT CHRONICALLY WEARS 4 L AT HOME AT ALL TIMES. SANDWICH BOX GIVEN TO PATIENT.
[2024-05-02 19:30] VITALS: BP 143/99
--- NOTE | 2024-05-02 19:30 | NUR ---
REPORT RECEIVED FROM BRANDI MELLO. IN TO SEE PT, SHE IS AWAKE IN BED ON CARDIZEM DRIP AT 15MG/HR. HR 115-120'S AFIB. PT ON OXYGEN/10L WITH SPO2 88%.
[2024-05-02 20:00] VITALS: BP 166/90
[2024-05-02] MEDS ORDERED: methylPREDNISolone SOD SUCC 40 MG/ML VIAL IV SCH (20:00)
[2024-05-02 21:00] VITALS: BP 111/66
[2024-05-02] MEDS ORDERED: INSULIN LISPRO 100 UNIT/ML ML SUB-Q SCH (21:00)
[2024-05-02] MEDS ORDERED: APIXABAN 5 MG TAB PO SCH (21:00)
[2024-05-02] MEDS ORDERED: IBLOOD GLUCOSE TEST STRIP 1 EA TEST XX SCH (21:00)
[2024-05-02 22:00] VITALS: BP 144/69
[2024-05-02] MEDS ORDERED: DILTIAZEM HCl/D5W 125 ML IV SCH (22:00)
--- NOTE | 2024-05-02 22:11 | NUR ---
PT CALLS TO HAVE HELP WITH TAKING CONTACTS OUT AND PUT BIPAP ON, WANTING TO SLEEP FOR THE NIGHT. CALL LIGHT IN REACH, NO FURTHER REQUESTS.
--- NOTE | 2024-05-02 22:43 | NUR ---
PT WAS SWITCHED OVER TO HER HOME BIPAP MACHINE TO TRY TO SLEEP, SATS IMMEDIATELY DOWN TO 70'S, IT STARTED WITH 4L BLEED IN, O2 TURNED UP TO 10 L WITH SATS STAYING 72-77%, RT CALLED, O2 TURNED UP TO 15L BLEED IN WITH NO CHANGE. PT SWITCHED TO OXYMASK AND SATS UP TO 90'S, HOSPITAL BIPAP SET UP BY RT AND PT SWITCHED TO THAT 06/04 100% WITH SATS UP TO 90'S AND PT REPORTS FEELING MORE COMFORTABLE WITH HER BREATHING ON THAT. PT NOW TRYING TO SLEEP. WILL TITRATE O2 DOWN TO KEEP SATS 88-92%.
[2024-05-02 23:00] VITALS: BP 137/73
--- NOTE | 2024-05-02 23:51 | NUR ---
PT REMAINS RESTING ON BIPAP, O2 TURNED DOWN TO 80%. ASSESSMENT UNCHANGED FROM PREVIOUS.
[2024-05-03] VITALS (33 sets, daily range): BP systolic 122–176; BP diastolic 59–122
--- NOTE | 2024-05-03 02:00 | NUR ---
PT HAS BEEN WEARING THE BIPAP CONTINUOUSLY, RESTFUL WITH NO REQUESTS. OCC USING CALL LIGHT WHEN IV PUMP ALARMS. IV CARDIZEM CONT AT 20MG/HR. O2 HAS BEEN TITRATED DOWN TO 60% FIO2.
--- NOTE | 2024-05-03 04:58 | NUR ---
IN TO DO ASSESSMENT/MEDS. CARDIZEM DRIP REMAINS 20MG/HR. HR 100'S. FIO2 TURNED DOWN TO 50%. PT DENIES NEEDS AT THIS TIME.
[2024-05-03 05:23] LABS: HEMOGLOBIN 11.1 g/dL (12.0-18.0); MCH 28.8 (27-36)
[2024-05-03 05:25] LABS: BASOPHILS 0.3 % (0-2); LYMPHOCYTES 5.5 % (24-44); MCHC 31.8 g/dl (30-36); MCV 90.4 fl (81-99); MONOCYTES 1.3 % (0-12); NEUTROPHILS 92.9 % (39-80); PLATELET COUNT 145 K/uL (140-440); RBC 3.87 M/ul (4.3-5.7); RDW 17.9 (10.5-15.0)
[2024-05-03 05:36] LABS: ANION GAP 12.4 (7-21); BUN/CREATININE RATIO 21.73 (6.0-28.6); CALCIUM 8.7 mg/dL (8.5-10.1); CREATININE, SERUM 0.92 mg/dL (0.55-1.02); MAGNESIUM 1.9 mg/dL (1.8-2.4); PHOSPHORUS, INORGANIC 3.8 mg/dL (2.5-4.9); POTASSIUM 4.4 mmol/L (3.5-5.1)
--- NOTE | 2024-05-03 07:35 | NUR ---
PATIENT REQUESTS BIPAP REMOVAL. PLACED ON OXYMASK ON 12L.
--- NOTE | 2024-05-03 07:40 | NUR ---
REPORT RECEIVED [facility] PRODUCT APPLICATIONS ENGINEER RN. PATIENT RESTING IN BED AT THIS TIME. REQUESTING TO BE PULLED UP IN BED. PATIENT REPOSITIONED AND ASSISTED WITH BEING PULLED UP IN BED. SAO2 WNL ON 6L VIA OXY MASK. PATIENT DENIES ANY FURTHER NEEDS. CALL LIGHT WITHIN REACH.
--- NOTE | 2024-05-03 08:05 | NUR ---
MD IN ROOM WITH PATIENT AT THIS TIME.
[2024-05-03] MEDS ORDERED: DIGOXIN 500 MCG/2 ML AMP IV ONE (08:15)
--- NOTE | 2024-05-03 08:40 | NUR ---
PATIENT RESTING IN BED WITH OXY MASK IN PLACE. NOTED PATIENT WITH TACHYPENIA AT TIMES. LUNG SOUNDS CLEAR IN UPPER RIGHT LOBE NOTED WHEEZING IN UPPER LEFT LOBE, BILATERAL LOWER LOBES DIM. PATIENT DENIES ANY CHEST PAIN RO SOB AT THIS TIME. HEART RATE REMAINS TACHY IN LOWER 100'S AT TIMES ELEVATES TO UPPER 120'S WITH INCREASED ACTIVITY IN THE BED. AM MEDICATIONS ADMINSTERED. NOTED EDMEA TO BLLE REMAINS. PUREWICK IN PLACE AND FUNCTIONING WNL. IV SITES PATENT AND WNL. DILT GTT CONTINUES AT 20MG/HR. PATIENT WITH NO FURTHER NEEDS AT THIS TIME. CALL LIGHT WITHIN REACH.
--- NOTE | 2024-05-03 08:53 | NUR ---
VISITED DURING SPIRITUAL CARE ROUNDS. PT INIDCATED NO NEEDS AT THIS TIME. BOBBIN HAULER PROVIDED SUPPORTIVE PRESENCE, HOSPITALITY, PRAYER. PT EXPRESSED GRATITUDE FOR VISIT.
--- NOTE | 2024-05-03 08:53 | NUR ---
VISITED DURING SPIRITUAL CARE ROUNDS. PT APPEARED TO BE SLEEPING. DID NOT DISTURB. PROVIDED PRAYER.
[2024-05-03] MEDS ORDERED: FOLIC ACID 1 MG TAB PO SCH (09:00)
[2024-05-03] MEDS ORDERED: MONTELUKAST SODIUM 10 MG TAB PO SCH (09:00)
[2024-05-03] MEDS ORDERED: FLUOXETINE HCL 20 MG CAP PO SCH (09:00)
[2024-05-03] MEDS ORDERED: FUROSEMIDE 40 MG/4 ML VIAL IV SCH (09:00)
--- NOTE | 2024-05-03 09:02 | NUR ---
FRUIT HARVESTER IN ROOM WITH PATIENT AT THIS TIME OBTAINING ECHO STUDY.
[2024-05-03] MEDS ORDERED: BUDESONIDE 0.5 MG/2 ML VIAL INH SCH (09:12)
[2024-05-03] MEDS ORDERED: ALBUTEROL SULFATE 0.083% 3 ML VIAL INH SCH (09:13)
[2024-05-03] MEDS ORDERED: ALBUTEROL SULFATE 0.083% 3 ML VIAL INH PRN (09:15)
--- NOTE | 2024-05-03 09:19 | NUR ---
UR CLINICAL REVIEW: [facility]F INPT 05/02/24 @ 4314 ORDER MATCHES REG CLINICAL FAXED TO [facility] FOR AUTH REVIEW DISCHARGE TO HOME WHEN STABLE 05/05/24
--- NOTE | 2024-05-03 10:47 | NUR ---
PATIENT RESTING IN BED WITH EYES CLOSED. RESPIRATIONS EVEN AND UNLABORED. BIPAP IN PLACE / FIO2 40%. SAO2 95% AT THIS TIME. NO FURTHER NEEDS CALL LIGHT WITHIN REACH.
--- NOTE | 2024-05-03 11:15 | NUR ---
Spoke with Jaylyn. Bipap was removed. Pt states she cont. to live in her home. She lives with a roommate. Roommate provides some caregiving. Pt uses a walker, 02 at 2L, Bipap from [facility]. Pt lives in a 2 story home, but uses 1 floor only. Pt is on SS and pension. She denies financial issues. Wants to go home when she returns to baseline.
--- NOTE | 2024-05-03 11:27 | NUR ---
PATIENT REPOSITIONED IN BED. NOTED WET CHUCKS. CHUCKS REPLACED WITH NEW ONE, JAY CARE PROVIDED, NEW PUREWICK PLACED. PATIENT ABLE TO ASSIST SLIGHTLY WITH ROLLING IN BED. HEELS FLOATED. BIPAP PLACED BACK ON PATIENT. DILT GTT CONTINUES AT 20MG/HR. HR REMAINS LOWER 100'S. AFIB RHYTHM CONTINUES. PATIENT DENIES ANY CHEST PAIN. IV SITES REMAIN WNL. NO FURTHER NEEDS AT THIS TIME. CALL LIGHT WITHIN REACH.
[2024-05-03] MEDS ORDERED: PHARMACY RENAL DOSE ADJUSTMENT 1 DOSE MISC PO SCH (12:00)
--- NOTE | 2024-05-03 12:30 | NUR ---
PATIENT SITTING UP IN BED EATING LUNCH. NOTED PATIENT HR TO BE ELEVATED AT THIS TIME 125. TACHYPENIA NOTED WELL WITH 26 BREATHS/MIN. HEART RHYTYM REMAINS IN AFIB. PATIENT DENIES ANY SOB OR CHEST PAIN AT THIS TIME WHILE EATING. SAO2 ON 88% WHILE EATING WITH OXYMASK ON 12L/MIN.
--- NOTE | 2024-05-03 14:33 | NUR ---
RN SPOKE WITH . ELEVATED D-DIMER. ORDERS FOR CT WITH CONTRAST TO RULE OUT PE.
--- NOTE | 2024-05-03 15:00 | NUR ---
PATIENT TRANSPORTED DOWN TO CT. PATIENT REMAINED ON BIPAP DURING CT. PATIENT TRNASFERED VIA HOVER MAT TO CT TABLE.
[2024-05-03] MEDS ORDERED: VARENICLINE1 EACH PO (15:01)
[2024-05-03] MEDS ORDERED: PIOGLITAZONE HC15 MG PO (15:05)
[2024-05-03] MEDS ORDERED: DOXAZOSIN MESYLA4 MG PO (15:05)
[2024-05-03] MEDS ORDERED: TRELEGY ELLIPT1 EACH INH (15:06)
[2024-05-03] MEDS ORDERED: ATORVASTATIN CA40 MG PO (15:07)
[2024-05-03] MEDS ORDERED: DAPAGLIFLOZIN5 MG PO (15:08)
--- NOTE | 2024-05-03 16:18 | NUR ---
RN SPOKE WITH MD VIA PHONE CALL REGUARDING CT RESULTS. NEGATIVE FOR PE. RN DISCUSSED POC REGUARDING DILT GTT. DILT GTT TITRATED DOWN SEE FLOWSHEET. PATIENT LUNG SOUNDS CLEAR IN BILATERAL UPPER LOBES DIMINISHED IN BILATERAL LOWER LOBES. PATIENT REMAINS ON BIPAP SETTINGS 06/04 FIOS 32%. DENIES ANY CHEST PAIN OR SOB. BSS. IV SITE REMAIN WNL. EDEMA CONTINUES TO BLLE AND LOWER ABDOMEN. PUREWICK WITH QUANITY SUFFICIENT OUTPUT. CALL LIGHT WITHIN REACH.
[2024-05-03 17:48] LABS: BASE EXCESS, BLOOD GAS 3.9 mmol/L (-2-2); HCO3, BLOOD GAS 29.7 mmol/L (22-26); O2 SATURATION, BLOOD GAS 96.4 % (95.0-100.0); PCO2, BLOOD GAS 48.7 mmHg (35-45); PH, BLOOD GAS 7.39 (7.35-7.45); PO2, BLOOD GAS 76 mmHg (80-100); TOTAL CO2, BLOOD GAS 31.2
[2024-05-03 17:49] LABS: OXYGEN RECEIVED, BLOOD GAS 36%
--- NOTE | 2024-05-03 17:50 | NUR ---
PATIENT SITTING IN BED WITH HOB ELEVATED. SWITCHED TO VAPOTHERM WITH SETTINGS ON 4L FIO2 OF 32%. SAO2 IN LOW 90'S HWOEVER PATIENT EATS DINNER SAO2 DROPS TO 86%. FIO2 INCREASED TO 50% TO MAINTAIN SAO2 88%. NOTED HR INCREASED TO 120'S WHILE PATIENT IS EATING WELL. PATIENT REMAINS ASYMTPOMATIC DURING THIS PERIOD OF TIME.
[2024-05-03 18:05] LABS: BASOPHILS 0.3 % (0-2); HEMATOCRIT 36.3 % (35.0-50.0); HEMOGLOBIN 11.7 g/dL (12.0-18.0); LYMPHOCYTES 4.3 % (24-44); MCH 29.3 (27-36); MCHC 32.1 g/dl (30-36); MCV 91.2 fl (81-99); MONOCYTES 1.5 % (0-12); NEUTROPHILS 93.9 % (39-80); PLATELET COUNT 161 K/uL (140-440); RBC 3.98 M/ul (4.3-5.7); RDW 18.1 (10.5-15.0)
--- NOTE | 2024-05-03 18:10 | NUR ---
PATIENT FINISHED DINNER. TALKING ON PHONE AT THIS TIME. DENIES ANY SOB, OR PAIN. DENIES ANY NEEDS. REMAINS ON VAPOTHERM FIO2 AT 80%. DENIES ANY FURTHER NEEDS. CALL LIGHT WITHIN REACH.
--- NOTE | 2024-05-03 19:50 | NUR ---
HANDOFF REPORT RECEIVED FROM DAY SHIFT RN. PATIENT RESTING IN BED WATCHING TV. NO NEEDS AT THIS TIME. CALL LIGHT WITHIN REACH.
--- NOTE | 2024-05-03 20:00 | NUR ---
PATIENT PLACED BACK ON BIPAP. BIPAP SETTINGS; 06/04, FIO2 36, RATE 16. PATIENT SPO2 93%. PATIENT DILTIAZEM GTT INFUSING AT 5MG/HR, HEART RATE 90-120'S. NO NEEDS AT THIS TIME. CALL LIGHT WITHIN REACH.
--- NOTE | 2024-05-03 20:45 | NUR ---
PATIENT ASSESSMENT COMPLETE. PATIENT REMAINS ON BIPAP, TOLERATING WELL. PATIENT REMAINS ON DILTIAZEM GTT AT 5MG/HR, IV SITE WNL. PATIENT RIGHT AC IV SITE DRESSING CHANGED, IV SITE WNL. PATIENT HAS PURE WICK IN PLACE. PATIENT DENIES FEELING SOB OR PAIN AT THIS TIME. PATIENT NOTED TO HAVE +2 LOWER EXTREMITY EDEMA AND REDNESS ON HER RIGHT ANKLE. PATIENT HAS NO NEEDS AT THIS TIME. CALL LIGHT WITHIN REACH.
[2024-05-03] MEDS ORDERED: APIXABAN 5 MG TAB PO SCH (21:00)
[2024-05-03] MEDS ORDERED: DILTIAZEM IV SCH (21:45)
[2024-05-03] MEDS ORDERED: SODIUM CHLORIDE IV SCH (21:45)
--- NOTE | 2024-05-03 23:03 | NUR ---
DILTIAZEM GTT TITRATED PER MEDICATION FLOWSHEET. PATIENT REMAINS ON BIPAP, SETTINGS UNCHANGED. PATIENT HAS NO NEEDS AT THIS TIME. CALL LIGHT WITHIN REACH.
[2024-05-04] VITALS (23 sets, daily range): BP systolic 91–170; BP diastolic 57–113
--- NOTE | 2024-05-04 00:55 | NUR ---
PATIENT ASSESSMENT COMPLETE. PATIENT REMAINS ON DILTIAZEM GTT AT 10MG/HR. PATIENT IV SITES WNL. PATIENT HEART RATE 80-110'S, UP TO 120'S WITH MOVEMENT. PATIENT REMAINS ON BIPAP, SETTINGS UNCHANGED. PATIENT SPO2 93%, RR 17. PATIENT HAS NO NEEDS AT THIS TIME. CALL LIGHT WITHIN REACH.
--- NOTE | 2024-05-04 01:45 | NUR ---
PATIENT RESTING IN BED WITH EYES CLOSED, RESPIRATIONS EVEN AND UNLABORED. NO ACUTE DISTRESS NOTED. CALL LIGHT WITHIN REACH.
--- NOTE | 2024-05-04 03:10 | NUR ---
PATIENT USED CALL LIGHT REQUESTING ASSISTANCE WITH BIPAP MASK. MASK ADJUSTED. PATIENT STATES NO OTHER NEEDS AT THIS TIME. BIPAP SETTINGS REMAIN UNCHANGED, RR 21 SPO2 92%. PATIENT PUREWICK CANISTER EMPTIED. DILTIAZEM GTT REMAINS AT 10MG/HR. HEART RATE 80-90'S, OCCASIONALLY UP TO 110'S WITH MOVEMENT IN BED. CALL LIGHT WITHIN REACH.
--- NOTE | 2024-05-04 04:30 | NUR ---
IN PATIENT ROOM FOR MEDICATION ADMIN PER EMAR. PATIENT HAS NO NEEDS AT THIS TIME. CALL LIGHT WITHIN REACH.
[2024-05-04 05:20] LABS: BASOPHILS 1.1 % (0-2); EOSINOPHILS 0.4 % (0-6); HEMATOCRIT 36.5 % (35.0-50.0); HEMOGLOBIN 11.4 g/dL (12.0-18.0); LYMPHOCYTES 5.1 % (24-44); MCH 28.7 (27-36); MCHC 31.2 g/dl (30-36); MCV 91.7 fl (81-99); MONOCYTES 2.5 % (0-12); NEUTROPHILS 90.9 % (39-80); PLATELET COUNT 153 K/uL (140-440); RBC 3.98 M/ul (4.3-5.7); RDW 18.5 (10.5-15.0)
[2024-05-04 05:28] LABS: ANION GAP 11.1 (7-21); BUN/CREATININE RATIO 27.52 (6.0-28.6); CALCIUM 9.1 mg/dL (8.5-10.1); CREATININE, SERUM 1.09 mg/dL (0.55-1.02); MAGNESIUM 2.2 mg/dL (1.8-2.4); POTASSIUM 4.1 mmol/L (3.5-5.1)
--- NOTE | 2024-05-04 06:05 | NUR ---
THIS RN AT BEDSIDE NOTED BIPAP ALARMING. RT AT BEDSIDE TO EVALUATE PATIENT. PATIENT REMAINS ON BIPAP, SETTINGS UNCHANGED. PATIENT SPO2 93%. NO FURTHER NEEDS AT THIS TIME. CALL LIGHT IN REACH.
--- NOTE | 2024-05-04 06:20 | NUR ---
PATIENT LINEN NOTED TO BE WET. LINEN CHANGED, NEW PUREWICK AND GOWN PLACED. PATIENT REPOSITONED IN BED. PATIENT HAS NO FURTHER NEEDS AT THIS TIME, CALL LIGHT WITHIN REACH.
--- NOTE | 2024-05-04 07:30 | NUR ---
REPORT RECIVED FROM OPERA SINGER RN. PATIENT RESTING IN BED ON BIPAP. PER REPORT PATIENT ON HOSPITAL BIPAP OVER NIGHT. PER REPORT PATIENT REFUSED TO LET STAFF TIGHTEN MASK CAUSING A LEAK AND VIBRATION OF MASK. PATIENT SPO2 88-92%. CALL LIGHT IN REACH.
--- NOTE | 2024-05-04 09:00 | NUR ---
MD IN TO SEE PATIENT AND DISCUSS PLAN OF CARE WITH PATIENT. PATIENT AGREEABLE TO PLAN OF CARE. PATIENT ASKE MD TO UPDATE HER BROTHER AND HE WAS UPDATED WELL. PATIENT WILL WORK WITH PT TO GET UP TO THE CHAIR TODAY.
[2024-05-04] MEDS ORDERED: dilTIAZem HCL 180 MG CAPCR PO SCH (09:07)
--- NOTE | 2024-05-04 10:00 | NUR ---
PATIENT UP TO THE CHAIR WITH PT/OT AND TOLERATED WELL. RT AT THE BEDSIDE TO ASSIST WITH OXYGEN DEMANDS.
--- NOTE | 2024-05-04 10:00 | NUR ---
Spoke with Jaylyn. She denies needs. Has her Trilogy in the room. She states it has been working fine. She denies any needs. Pt looks much better today and is sitting up in the recliner. Friend in room.
--- NOTE | 2024-05-04 11:00 | NUR ---
PATIENT REMAINS UP IN THE CHAIR. DILTIAZEM GTT TURNED OFF AT THIS POINT. PATIENT HR 90'S AT REST. WILL MONTIOR HEART RATE WITH ACTIVITY. PATIENT WILL HAVE PO DIGOXIN GIVEN TODAY WELL. DISCUSSED HOME MEDICATIONS THAT PATIENT REQUESTING WITH PROVIDER. SEE EMAR FOR NEW ORDERS. PATIENT UP IN CHAIR AND AWAITING LUNCH.
[2024-05-04] MEDS ORDERED: VARENICLINE TARTRATE 1 MG TAB PO SCH (11:02)
[2024-05-04] MEDS ORDERED: DIGOXIN 250 MCG TAB PO SCH (11:05)
--- NOTE | 2024-05-04 11:30 | NUR ---
STAFF IN TO ASSIST PATIENT TO STAND. PUREWICK THAT WAS IN PLACE LEAKED.
--- NOTE | 2024-05-04 11:50 | NUR ---
pt up in chair, call light in reach - alert and oriented, sob with exertion, po and iv meds given - see emar. denies other needs, 150 ml of fresh water given- fluid restriction noted.
--- NOTE | 2024-05-04 11:59 | NUR ---
pt up in chair - lunch provided, pt oxygen desats while eating, 84% on 6L hfnc. pt hr 121-130 with meal. rr 18. pt denies needs. continues eating.
[2024-05-04] MEDS ORDERED: ALBUTEROL/IPRATROPIUM 3 ML NEB INH SCH (12:00)
--- NOTE | 2024-05-04 12:30 | NUR ---
PATIENT UP IN THE CHAIR EATING LUNCH. MEDICATIONS GIVEN. PATIENTS BROTHER IN VISITING PATIENT.
--- NOTE | 2024-05-04 13:15 | NUR ---
PATIENT ASSISTED BACK TO BED FROM CHAIR. PATIENT PREOXYGENATED ON 11L HIGH FLOW NASAL CANNULA. PATIENT STOOF AND TRANSFERED WITH WALKER AND CONTACT GUARD. PATIENT TOLERATED WELL. PATIENT SAT ON EDGE OF BED TO CATCH BREATH PRIOR TO LAYING DOWN. PATIENT SPO2 DROPPED TO 86% WITH ACTOVITY AND HR 115. PATIENT LAID MARTINE NAND REPOSITIONED WITH HOVER MAT. PUREWICK AND ATTENDS WERE PLACED. PATIENT TOLERATED WELL. WHEN THIS RN ASKED PATIENT HOW THE ACTIVITY TOLERANCE COMPARES TO HER HOME SHE STATES "ITS NOW ABOUT THE SAME". PATIENT LAYING IN BED WATCHING TV. CALL LAUREN STORY. PATIENT OXYGEN TURNED BACK TO 6L NC. RT UPDAATED.
--- NOTE | 2024-05-04 15:00 | NUR ---
PATIENT RESTING IN BED. NOTIFIED RT TO COME CHECK PATIENT TO ADJUST OXYGEN TO HOME UNIT.
--- NOTE | 2024-05-04 16:00 | NUR ---
RT WAS ABLE TO FIGURE OUT HOME UNIT AND PATIENT NOW RESTING WELL ON DEVICE AT THIS TIME. CALL LGT IN REACH. PATIENT DENIES ANY NEEDS AT THIS TIME. PATIENT REMOVED DENTURES WHILE WEARING MASK.
--- NOTE | 2024-05-04 18:00 | NUR ---
PATIENT REPOSITIONED IN BED WITH HOVER MAT. PATIENT TOLERATED WELL AND SITTING UP EATING DINNER.
--- NOTE | 2024-05-04 19:45 | NUR ---
handoff report received from day shift RN. patient resting in bed, with friend at bedside. no distress noted. patient has no needs at this time. call light within reach.
[2024-05-04] MEDS ORDERED: dilTIAZem HCL 120 MG CAPCR PO SCH (21:00)
[2024-05-04] MEDS ORDERED: MICONAZOLE NITRATE 1 EA BTL TOP SCH (21:00)
--- NOTE | 2024-05-04 21:30 | NUR ---
PATIENT HEART RATE 100-130'S. DISCUSSED WITH DR. CUETO. NEW ORDERS RECEIVED. SEE EMAR.
--- NOTE | 2024-05-04 22:05 | NUR ---
PATIENT PLACED ON HOME TRILOGY MACHINE. NO FURTHER NEEDS AT THIS TIME. CALL LIGHT WITHIN REACH.
--- NOTE | 2024-05-04 22:05 | NUR ---
COSTELLO CARE PROVIDED, AND PATIENT REPOSITIONED IN BED. LIDOCAINE PATCH REMOVED PER EMAR. QUAD SWAB OBTAINED AND SENT TO LAB. NO FURTHER NEEDS AT THIS TIME. CALL LIGHT WITHIN REACH.
--- NOTE | 2024-05-04 23:45 | NUR ---
patient purewick noted to not be working. patient draw sheet and brief changed, new purewick placed. patient assisted with turns. patient desats with movement, O2 turned up to 8L. patient SPO2 88-90%, RR 24. willem care provided. no further needs at this time. call light within reach.
[2024-05-05] VITALS (10 sets, daily range): BP systolic 125–151; BP diastolic 62–101
--- NOTE | 2024-05-05 00:49 | NUR ---
PATIENT REMAINS ON HOME BIPAP, WITH 8L O2. PATIENT SPO2 88-91%. PATIENT HEART RATE 100-120'S AT REST. NO DISTRESS NOTED. CALL LIGHT WITHIN REACH.
--- NOTE | 2024-05-05 03:20 | NUR ---
patient desats as low as 85%, patient O2 titrated up to 10L with no improvement. RT at bedside to assess patient. settings adjusted per RT on home BIPAP machine and titrated down to 6L O2. patient SPO2 88%. no further needs at this time. call light in reach.
--- NOTE | 2024-05-05 03:31 | NUR ---
HOME AVAPS: VT:400, EPAP MIN/MAX: 10/20, PS: 15, PS MAX: 35, I-TIME MIN/MAX: 0.8/2.0 WITH A 6L OXYGEN BLEED IN
--- NOTE | 2024-05-05 04:55 | NUR ---
patient resting in bed with eyes closed, RR 19. patient remains on home BIPAP, SPO2 88%. no distress noted. patient heart rate 80-90's. no needs at this time. call light within reach.
[2024-05-05 05:19] LABS: BASOPHILS 0.1 % (0-2); HEMATOCRIT 36.6 % (35.0-50.0); HEMOGLOBIN 11.4 g/dL (12.0-18.0); MCH 28.5 (27-36); MCHC 31.2 g/dl (30-36); MCV 91.5 fl (81-99); MONOCYTES 3.6 % (0-12); NEUTROPHILS 92.3 % (39-80); PLATELET COUNT 154 K/uL (140-440); RDW 18.1 (10.5-15.0)
[2024-05-05 05:40] LABS: ANION GAP 12.2 (7-21); BUN/CREATININE RATIO 35.34 (6.0-28.6); CALCIUM 9.3 mg/dL (8.5-10.1); CREATININE, SERUM 1.16 mg/dL (0.55-1.02); MAGNESIUM 2.2 mg/dL (1.8-2.4); POTASSIUM 4.2 mmol/L (3.5-5.1)
[2024-05-05 05:43] LABS: DIGOXIN 0.8 ng/dL (0.9-2.0)
--- NOTE | 2024-05-05 06:40 | NUR ---
new purewick placed, willem care provided. patient denies any pain or feeling SOB at this time. patient has no needs at this time. patient remains on home BIPAP with 8L O2, SPO2 89%. patient remains in AFIB, heart rate 80-90's. patient has call light within reach.
--- NOTE | 2024-05-05 08:30 | NUR ---
STUDENT RN IN TO DOING MORNING ASSESSMENT AND REPOSITIONING. PATIENT'S UPPER DENTURES CLEANED AND PUT IN FOR BREAKFAST. RESPIRATORY THERAPY LEFT WITH INSTRUCTIONS TO TURN OFF DUONEB WHEN TREATMENT WAS FINISHED. PATIENT SAT UP IN BED WITH BREAKFAST TRAY AND CALL LIGHT WITHIN REACH. TWENTY MINUTES LATER, TRAY WAS TAKEN AND PATIENT WAS ASSISTED IN PUTTING CONTACTS IN FOR THE DAY. WE DISCUSSED HER PLAN FOR THE DAY.
[2024-05-05] MEDS ORDERED: TORSEMIDE 20 MG TAB PO SCH (09:00)
[2024-05-05] MEDS ORDERED: dilTIAZem HCL 240 MG CAPCR PO SCH (09:04)
--- NOTE | 2024-05-05 09:10 | NUR ---
CALLED [facility] ABOUT TRILOGY OXYGEN TUBING HAVING A HOLE IN IT. ALSO UPDATED THEM THAT THE SETTINGS NEED ADJUSTED.
--- NOTE | 2024-05-05 10:10 | NUR ---
UR CONCURRENT/CLINICAL REVIEW: [facility]-MEET INPT CRITERIA FOR CHF [facility] INPT 05/02/24 @ 1730 ORDER MATCHES REG AUTHORIZED STAY THROUGH 05/04/24, UPDATED CLINICALS FAXED TO [facility] ON 05/04/24 DISCHARGE TO HOME WHEN STABLE. 05/08/24
--- NOTE | 2024-05-05 10:28 | NUR ---
VISITED DURING SPIRITUAL CARE ROUNDS. PT APPEARED TO BE SLEEPING. DID NOT DISTURB. PROVIDED PRAYER.
--- NOTE | 2024-05-05 11:42 | NUR ---
ZAIRA AT [facility] WILL FAX OVER HER ORDERS. ORDERS HAVE NOT BEEN UPDATED SINCE OCTOBER. [facility] HAS TRI[facility] TO CONTACT PATIENT MULTIPLE TIMES AND EVEN WENT TO HER HOUSE.
--- NOTE | 2024-05-05 11:59 | NUR ---
PATIENT ASSISTED TO CHAIR FOR LUNCH WITH PHYSICAL THERAPY AND RESPIRATORY THERAPY. HEART RATES WENT UP TO THE 130'S, 02 STAYED WITHIN AN ACCEPTABLE SATURATION FOR RESPIRATORY THERAPY. PATIENT SITTING UP IN CHAIR TO EAT LUNCH. CALLL LIGHT WITHIN REACH, LOUANN FULLER), BROTHER IN ROOM.
--- NOTE | 2024-05-05 12:15 | NUR ---
MD IN TO SEE PATIENT AND DISCUSSED PLAN WITH HER BROTHER. UPDATED THAT PATIENTS HR IS MORE ELEVATED AT THIS TIME AND THAT PATIENT UP AND WORKED WITH PT.
--- NOTE | 2024-05-05 12:45 | NUR ---
PATIENT HAS HER BROTHER AND FRIEND PRESENT. UPDATED HER BROTHER ON PLAN OF CARE AND EDUCATION FOR [facility] AND SUPPLIES BEING CHANGED ON ROUTINE BASIS. SUPPLIED WITH THE [facility] LIST OF RECOMMENDATIONS. PER PATIENT SHE ASKED THAT HER BROTHER NUMBER BE ADDED TO HER [facility] INFORMATION FOR CONTACTING HER IN REGUARDS TO THIS. PATIENT DENIES ANY OTHER NEEDS AT THIS TIME.
--- NOTE | 2024-05-05 13:53 | NUR ---
RT TO CONTINUE TO EVALUATE TRILOGY SETTINGS. ORDER FOR TIDAL VOLUME IS 350 TO 500. WE HAVE TITRATED FROM TIDAL VOLUME OF 350 TO 450 BASED ON THE FOLLOWING. IBW IS 151 LBS OR 68.63 KG. 68.63 X 6 ML/KG =TIDAL VOLUME OF 411. 68.63 X 8 = TIDAL VOLUME OF 549. AVERAGE OF THESE 2 = TIAL VOLUME OF 480. THIS WILL BE THE NEW SETTING MOVING FORWARD AND IS WITHIN ORDERED RANGE. WE ALSO CHANGED THE EPAP MAXIMUM TO 20 AND WILL NEED UPDATED ORDER SENT TO [facility] FOR THIS. JUST NEED TO UPDATE THAT THE "OBSERVED" TIDAL VOLUME WILL NOW BE 480.
--- NOTE | 2024-05-05 15:05 | NUR ---
STUDENT NURSE SHAMPOOED PATIENT'S HAIR AND COMBED OUT THE MATS WHILE PATIENT SAT UP IN CHAIR. TOLLERATED WELL WITH O2 STAYING CLOSE TO 88%. TRANSFERED BACK TO BED WITH MITCHEL MELLO AND GAVE A BED BATH. DESENEX POWDER PLACED IN LEFT ARMPIT AND PANUS FOLD. PATIENT IN BED ON 10L NC LISTENING TO VOICEMAILS. HR 93 O2 SAT. 91, AND RR 21 VIA TELEMETRY. NEW PUREWICK IN PLACE. CALL LIGHT WITHIN REACH.
[2024-05-05] MEDS ORDERED: Perflutren Lipid Microspheres 2.2 MG/2 ML VIAL IV ONE (16:35)
--- NOTE | 2024-05-05 16:45 | NUR ---
PATIENT ASSISTED TO LEFT SIDE IN BED FOR REPEAT ECHO TO BE DONE. PATIENT IMAGAING COMPLETED. PATIENT TOLERATED WELL. DURING EXAM PATIENT DID COMPLAIN FO SOME SORENESS UNDER LEFT BREAST FROM ULTRASOUND WAND. EXAMINED SITE AND NOTED SOME SMALL ABRASION UNADERBREAST. APPLIED BARRIER CREAM AND ANTIFUNGAL D/T RED YEASTY AREA. PATIENT NOW SITTING UP IN BED WATCING TV AWAITING DINNER.
[2024-05-05] MEDS ORDERED: LURASIDONE HCL 80 MG TAB PO SCH (17:00)
--- NOTE | 2024-05-05 18:33 | NUR ---
PATIENT FINISHED EATING AND NOW RESTING BACK IN BED WATCHING TV. CALL LIGHT IN REACH.
--- NOTE | 2024-05-05 19:40 | NUR ---
handoff report received from day shift RN. patient resting in bed, watching TV with friend at bedside. fresh ice water provided. no further needs at this time. call light in reach.
--- NOTE | 2024-05-05 20:55 | NUR ---
patient assessment complete. patient resting in bed watching TV. patient on 8L high flow NC, SPO2 88%. patient noted to have RUL wheezes. patient denies feeling SOB. patient has occasional non-productive cough. patient remains in AFIB, heart rate 100-120's. patient has purewick in place. discussed starting bowel regimen with patient. patient provided with pudding per request. no further needs at this time. call light within reach.
[2024-05-05] MEDS ORDERED: POLYETHYLENE GLYCOL 3350 1 PACKET PO SCH (21:00)
[2024-05-05] MEDS ORDERED: SENNOSIDES/DOCUSATE 1 EA TAB PO SCH (21:00)
--- NOTE | 2024-05-05 21:30 | NUR ---
patient titrated up to 10L high flow NC, SPO2 88%. patient denies feeling SOB. no further needs at this time. call light in reach
--- NOTE | 2024-05-05 22:15 | NUR ---
patient used call light for assistance with placing home Trilogy machine on. patient dentures taken out. lights turned off per request. patient has no further needs at this time. call light within reach.
--- NOTE | 2024-05-05 23:35 | NUR ---
ELIZABETH IS ON HER DOUGLAS WITH THE FOLLOWING SETTINGS: [id number] EPAP MIN/MAX: 10/20, PS:15, RR: AUTO, I-TIME MIN/MAX: 0.8/2.0, TI TIMES: AUTO, INSP SENSITIVITY: AUTO, INSP LOCKOUT TIME: 0.9S, TARGET VOLUME: ON, VT: 480, PS MAX: 30, SPEED: 3, PRESSURE RISE: 1, PRESSURE DROP: 4
[2024-05-06] VITALS (12 sets, daily range): BP systolic 126–159; BP diastolic 55–102
--- NOTE | 2024-05-06 01:19 | NUR ---
patient resting in bed with eyes closed, RR 16. patient remains on home BIPAP, SPO2 90%. no distress noted. call light in reach.
--- NOTE | 2024-05-06 03:42 | NUR ---
patient resting in bed with eyes closed, RR 16. patient remains on home BIPAP, with 8L O2. RT in room for scheduled breathing treatment. no needs at this time. call light within reach.
--- NOTE | 2024-05-06 05:03 | NUR ---
LAB IN ROOM FOR PATIENT AM LAB DRAW. PATIENT HAS NO NEEDS AT THIS TIME. CALL LIGHT IN REACH
[2024-05-06 05:17] LABS: BASOPHILS 0.3 % (0-2); HEMATOCRIT 36.1 % (35.0-50.0); HEMOGLOBIN 11.5 g/dL (12.0-18.0); LYMPHOCYTES 3.3 % (24-44); MCH 28.8 (27-36); MCHC 31.8 g/dl (30-36); MCV 90.4 fl (81-99); NEUTROPHILS 93.4 % (39-80); PLATELET COUNT 151 K/uL (140-440); RBC 3.99 M/ul (4.3-5.7); RDW 18.2 (10.5-15.0)
[2024-05-06 05:30] LABS: ANION GAP 11.3 (7-21); BUN/CREATININE RATIO 39.02 (6.0-28.6); CALCIUM 9.2 mg/dL (8.5-10.1); CREATININE, SERUM 1.23 mg/dL (0.55-1.02); MAGNESIUM 2.3 mg/dL (1.8-2.4); POTASSIUM 4.3 mmol/L (3.5-5.1)
--- NOTE | 2024-05-06 06:25 | NUR ---
NEW PUREWICK PLACED. JAY CARE PROVIDED. NEW DRAW SHEET AND BRIEF PLACED. PATIENT RIGHT AC IV NOTED TO BE LEAKING. IV SITE TAKEN OUT, TIP INTACT. SITE COVERED WITH GUAZE AND COBAND. PATIENT HAS NO NEEDS AT THIS TIME. PATIENT REMIANS ON HOME BIPAP MACHINE, WITH 8L O2. PATIENT SPO2 92%. PATIENT HEART RATE 80-90'S AT REST. CALL LIGHT WITHIN REACH.
--- NOTE | 2024-05-06 07:50 | NUR ---
REPORT RECEIVED FROM NIGHT RN - PT RESTING IN BED ON BACK WITH TRILOGY MASK IN PLACE. SPO2 92% ON MONITOR, RR 19.
--- NOTE | 2024-05-06 08:40 | NUR ---
THIS RN UPDATED BY OTHER CCU RN PT HAD EPISODE OF COUGHING WHILE EATING BREAKFAST. PT STATES SHE THOUGHT SHE "CHOKED ON SOME EGGS". PT SAT UP ON EDGE OF BED WITH RN ASSISTANCE, STRONG COUGH REFLEX TO CLEAR THROAT. HR ELEVATED WITH THIS TO 130'S, 02 TITRATED TO 15L NC TO RECOVER. PT REQUIRED NO FURTHER INTERVENTION. PT ABLE TO THEN TAKE PO MEDS WITH WATER WITHOUT DIFFICULTY.
--- NOTE | 2024-05-06 09:30 | NUR ---
AM ASSESSMENT COMPLETE - PT REMAINS DYSPNIC WITH MOVEMENT AND EATING REQUIRING UP TO 15L HIGH FLOW NC. PT WEARING BIPAP TO SLEEP AND REQUESTS IT FOR NAPS. HR ELEVATED WITH MOVEMENT TO 120'S - 130'S, 80-90 WHILE SLEEPING WITH BIPAP. PT HAS FLAT AFFECT AND SLIGHTLY WITHDRAWN BUT DENIES COMPLAINTS, REQUESTS TO SLEEP IN BETWEEN CARES AND DOES NOT INTERACT OTHERWISE. STATES SHE THINKS SHE IS SLOWLY IMPROVING. LUNG SOUNDS DIMINISHED THROUGHOUT. STRONG COUGH REFLEX. PURWIK IN PLACE, CONTINUED DIURETIC THERAPY TODAY. JAY CARE COMPLETE. PT REQUESTS FURTHER SKIN CARE LATER ONCE UP IN CHAIR. BACK AND COCCYX VISUALIZED AND WITHOUT BREAKDOWN OR REDNESS. UPDATED ON ECHO COMPLETED YESTERDAY, BROTHER AT RN STATION UPDATED ON CURRENT POC.
--- NOTE | 2024-05-06 09:35 | NUR ---
PT BACK ON BIPAP PER REQUEST TO NAP - DENTURES REMAIN IN MOUTH PER PT. PT EDUCATED ON ASPIRATION R/T BIPAP AND PRIOR FEELING OF CHOKING ON EGGS WITH BREAKFAST, PT STATES UNDERSTANDING AND DENIES FEELING LIKE SHE HAS ANYTHING STILL IN HER THROAT OR AT INCREASED RISK FOR ASPIRATION.
--- NOTE | 2024-05-06 11:05 | NUR ---
PT UP IN CHAIR AFTER WORKING WITH PHYSICAL THERAPY. HR IMPROVED TODAY WITH AMBULATION IN ROOM, DID NOT EXCEED SUSTAINED RATE OF 120. REQUIRED 15L O2 HIGH FLOW NC WHILE AMBULATING AND PROMPTS TO BREATH THROUGH NOSE. PARTIAL BED BATH COMPLETE, ARMPITS AND UNDER BREASTS CLEANED WITH BARRIER CLOTHS AND POWDER APPLIED. LEFT BREAST NOTED TO HAVE GENERALIZED REDNESS THAT PT COULD NOT SPECIFY IF NEW OR NOT. FISSURE LIKE SKIN BREAKDOW UNDER BREAST, OPEN. FRESH LINEN AND GOWN.
--- NOTE | 2024-05-06 13:08 | NUR ---
SITTING UP IN CHAIR. SLEEPING. O2 HIGH FLOW AT 10 LITERS. NO RESP DISTRESS NOTED.
--- NOTE | 2024-05-06 13:15 | NUR ---
BACK TO BED. USED WALKER TO TRANSFER FROM CHAIR TO BED. ASSISTED PATIENT WITH HER LEGS GETTING INTO BED. SHORT OF BREATH WITH MINIMAL EXERTION.
--- NOTE | 2024-05-06 14:30 | NUR ---
NAPPING ON BIPAP. NO DISTRESS NOTED.
--- NOTE | 2024-05-06 16:55 | NUR ---
WOKE FOR ACCUCHECK. PATIENT STATES SHE FEELS BETTER AFTER NAPPING. CONTINUES WITH FLAT AFFECT.
--- NOTE | 2024-05-06 17:00 | NUR ---
ACCUCHECK-291. INSULIN 7 UNITS SQ GIVEN. REPOSITIONED TO [facility], NOW SITTING UP IN BED FOR DINNER. STATES SHE FEELS A LITTLE BETTER AFTER NAPPING. OFF HER TRILOGY AND BACK ON HIGH FLOW O2 AT 12 LITERS WHILE EATING. SAT 90.
--- NOTE | 2024-05-06 17:40 | NUR ---
TOOK DINNER WELL. IS W/O REQUEST. DENIES PAIN. REMAIN ONHIGH FLOW O2 AT [address] 300 ML REECE URINE IN SUCTION.
--- NOTE | 2024-05-06 19:00 | NUR ---
SLEEPING ON 12 L HIGH-FLOW O2. REPORT TO NEXT SHIFT.
--- NOTE | 2024-05-06 20:05 | NUR ---
SBAR REPORT RECEIVED FROM FUNMILAYO MONTERO. ALL EVENTS OF THE SHIFT WERE DISCUSSED AND PLAN OF CARE REVIEWED. CARE ASSUMED BY THIS RN ELIZABETH ENDORSES HUNGER AND REQUESTED A CHOCOLATE PUDDING. OTHERWISE ENDORSES COMFORT. MD CUETO ON UNIT. NO NEW ORDERS
--- NOTE | 2024-05-06 21:21 | NUR ---
NEURO- ALERT AND ORIENTED X4, MOVES ALL EXTREMITIES, DENIES PAIN OR DISCOMFORT, PERRL RESP-- BREATH SOUNDS COARSE/DIM ALL LOBES BILATERALLY, 8LHFNC, RECEIVING NEB TREATMENTS, STRONG PRODUCTIVE COUGH CARDIAC- CONTROLLED AFIB, CAP REFILL LESS THAN 3SEC, 1+ EDEMA BILATERAL LOWER EXTREMTIES, AFEBRILE GI/- 2000CC FLUID RESTRICTION, LAST BM 05/05, SENNA AND MIRALAX GIVEN, NORMOACTIVE BOWEL TONES IN ALL 4 QUADRANTS. 9 UNITS OF INSULIN THIS PM INT- SEE ASSESSMENT 20G RIGHT ARM, FLUSHES BUT DOES NOT DRAW BACK PM CARES INCLUDED LINEN CHANGE, GOWN CHANGE, PUREWICK CHANGE
--- NOTE | 2024-05-06 22:40 | NUR ---
PATIENT ELIZABETH CALLED AND REQUESTED H20. 300CC PROVIDED. SHE IS STILL WITHIN FLUID RESTRICTION PARAMETERS. DENIES PAIN OR ANY OTHER NEEDS. LIGHTS DIMMED, BLANKET PROVIDED, AND TEMPERATURE OF ROOM ADJUSTED FOR COMFORT LEVEL. VSS AND WDL PER MONITOR SAFETY CHECK OF ROOM PERFORMED
[2024-05-07] VITALS (11 sets, daily range): BP systolic 113–144; BP diastolic 60–83
--- NOTE | 2024-05-07 03:03 | NUR ---
ELIZABETH APPEARS COMFORTABLE AND IS RESTING WITH EYES CLOSED. HER PURE-WICK WAS CHECKED THIS HOUR. VSS AND WDL PER MONITOR. NO NEEDS IDENTIFIED
[2024-05-07 05:29] LABS: BASOPHILS 0.1 % (0-2); HEMATOCRIT 37.1 % (35.0-50.0); HEMOGLOBIN 11.6 g/dL (12.0-18.0); LYMPHOCYTES 3.1 % (24-44); MCH 28.5 (27-36); MCHC 31.2 g/dl (30-36); MCV 91.3 fl (81-99); NEUTROPHILS 93.8 % (39-80); PH, VENOUS 7.403 (7.31-7.41); PLATELET COUNT 133 K/uL (140-440); RBC 4.06 M/ul (4.3-5.7); RDW 18.6 (10.5-15.0)
[2024-05-07 05:44] LABS: ANION GAP 11.4 (7-21); BUN/CREATININE RATIO 40.8 (6.0-28.6); CALCIUM 9.3 mg/dL (8.5-10.1); CREATININE, SERUM 1.25 mg/dL (0.55-1.02); MAGNESIUM 2.4 mg/dL (1.8-2.4); POTASSIUM 4.4 mmol/L (3.5-5.1)
--- NOTE | 2024-05-07 06:46 | NUR ---
ELIZABETH HAS A RESTFUL NIGHT AND APPEARED TO REST WITH EYES CLOSED. ENDORSED COMFORT THROUGHOUT THE SHIFT NEURO- ALERT AND ORIENTED, MOVES ALL EXTREMTIES, PERRL, ABLE TO ENDORSE ALL NEEDS AND WANTS, ASSISTS WITH REPOSITIONS CARDIAC- CONTROLLED AFIB, 1+EDEMA BILATERAL LOWER EXTREMTIES, AFEBRILE, PALPABLE PULSES, CAP REFILL LESS THAN 3 SECONDS RESP- TRILOGY IN USE WITH A 6L BLEED IN, HFNC WHILE AWAKE, BREATH SOUNDS COARSE/ DIMINISHED THROUGHOUT GI/- NORMOACTIVE BOWEL TONES, PUREWICK IN PLACE, SUFFICIENT URINE PRODUCED, YELLOW, NO BM THIS SHIFT, ENDORSES GOOD APPETITE INT- DESENEX POWDER PLACED UNDER LEFT AXILLA AND LEFT BREAST FOLD. 20 RWRIST IV PATENT AND INTACT
--- NOTE | 2024-05-07 07:30 | NUR ---
REPORT RECEIVED. PATIENT IS SLEEPING ON OWN TRILOGY. NO RESP DISTRESS NOTED.
--- NOTE | 2024-05-07 08:00 | NUR ---
ASSESSMENT DONE. ACCUCHECK 327, 7 UNITS INSULIN GIVEN. SITTING UP IN BED FOR BREAKFAST. TALKED WITH PATIENT ABOUT POC FOR THE DAY, INDICATES UNDERSTANDING. PUREWICK IN PLACE. DENIES PAIN.
--- NOTE | 2024-05-07 08:40 | NUR ---
PT WAS SITTING UP IN BED, EATING BREAKFAST, DESAT ON MONITOR NOTICED TO 81%, IN TO CHECK ON HER, DR CUETO ALSO IN TO DO HIS ROUNDING. PT IS COUGHING, STATES "I ASPIRATED ON MY EGGS". HR UP TO 140'S, SATS REMAIN IN LOW 80'S WHILE PATIENT COUGHING AND TRYING TO RECOVER. O2 TURNED UP TO 13L/HFNC AND PT ASSISTED UP TO SIT AT EDGE OF BED. PT TOOK APPROX 20 MINUTES TO FULLY RECOVER AND THEN WAS ABLE TO EAT HER BREAKFAST EXCEPT FOR HER EGGS. SHE WAS THEN ASSISTED BACK INTO BED, REMAINS ON HIGH FLOW NASAL CANNULA AT 13L WITH SPO2 87-92% AND RR 19.
--- NOTE | 2024-05-07 10:25 | NUR ---
PHYSICAL THERAPY HERE TO WORK WITH PATIENT. RESTING HR 110. SPONGE BATH GIVEN WHEN PATIENT SITTING AT BEDSIDE. TOLERATED WELL. WITH TRANSFER TO CHAIR HR TO 140 BEATS PER MIN, WITH INCREASE SHORTNESS OF BREATH. HIGH FLOW NC TO 15 LITERS. AFTER SITTING IN CHAIR FOR APPROX 10 MIN PATIENT REMAINS SHORT OF BREATH WITH HR 120-130. DR. CUETO NOTIFIED. HE WILL COME ASSESS PATIENT.
--- NOTE | 2024-05-07 10:42 | NUR ---
DR CUETO IN TO EVALUATE PT, ORDER GIVEN FOR CHEST XRAY.
--- NOTE | 2024-05-07 10:55 | NUR ---
PATIENT REMAINS IN CHAIR. NEUROPSYCHOLOGY SERVICE DIRECTOR HERE TO DO CHEST XRAY. AFTER CHEST XRAY DONE, PATIENT BACK TO BED. STAND AND PIVOT FROM CHAIR TO BED. CONTINUES WITH SHORTNESS OF BREATH, HR-130. WILL CONTINUE TO TITRATE O2. CURRENTLY O2 SAT 88 ON 15L HIGH FLOW. THIS AFTER ACTIVITY.
--- NOTE | 2024-05-07 12:00 | NUR ---
ACCUCHECK 347. [address] CUETO HERE TO SEE PATIENT. HE TALKED WITH HER ABOUT THE CHEST XRAY RESULTS. WILL RECEIVE TORSEMIDE TODAY. PATEINT UNDERSTANDING AND W/O QUESTIONS.
--- NOTE | 2024-05-07 12:10 | NUR ---
SITTING AT BESIDE TO EAT LUNCH.
[2024-05-07] MEDS ORDERED: TORSEMIDE 20 MG TAB PO ONE (12:15)
--- NOTE | 2024-05-07 12:30 | NUR ---
TOOK LUNCH WELL. TORSEMIDE 20 MG PO GIVEN,. PATEINT THEN LAYING DOWN AND TRILOGY APPLIED.
--- NOTE | 2024-05-07 14:15 | NUR ---
SLEEPING ON TRILOGY. NO RESP DISTRESS NOTED.
--- NOTE | 2024-05-07 17:00 | NUR ---
WOKE FOR ASSESSMENT, ACCUCHECK AND DINNER. HAS BEEN SLEEPING ON TRILOGY THIS AFTERNOON. O2 BLEED IN 4 L SINCE APPROX 1500 THIS AFTERNOON, HAD BEEN ON 6 LITERS. ACCUCHECK 359. 9 UNITS INSULIN GIVEN. READY TO SIT AT BESIDE FOR DINNER.
--- NOTE | 2024-05-07 17:30 | NUR ---
TOOK DINNER WELL. STOOD AT BEDSIDE WHILE BED LINEN CHANGED.
--- NOTE | 2024-05-07 18:34 | NUR ---
PATIENT IS IN BED, ON HIGH FLOW O2 AT 10 LITER. FRIEND IN ROOM.
--- NOTE | 2024-05-07 20:13 | NUR ---
ELIZABETH IS NOTED TO BE RESTING IN BED WATCHING TELEVISION. SHE STATED THAT SHE IS READY FOR BED AFTER PM MEDICATIONS. SHE ENDORSES COMFORT AND WAS APPRECIATIVE OF THE CHOCOLATE PUDDING AND H20 REFILL THAT THIS RN PROVIDED. LINENS CHANGED AND PUREWICK ASSESSED FOR PATENCY AND CLEANLINESS. NEURO- ALERT AND ORIENTED, MOVES ALL EXTREMITIES, ENDORSES COMFORT, PERRL, ABLE TO EXPRESS NEEDS AND DESIRES RESP- 8L HFNC, BREATH SOUNDS COARSE/ DIM, INSPIRATORY WHEEZES AUSCULATED IN LOWER RIGHT LOBE, NO DISTRESS NOTED, SPO2 90% PER MONITOR CARDIAC- CONTROLLED AFIB, 1+ EDEMA BILATERAL LOWER EXTREMITIES, AFEBRILE, 135/64 (86) GI/- NORMOACTIVE BOWEL TONES, GOOD APPETITE, LAST BM 05/02, RECEIVING BOWEL CARE, DENIES ANY TENDERNESS, OBESE ABDOMEN, PUREWICK IN PLACE INT- DESENEX POWDER FOR PANNUS, LEFT AXILLA, LEFT BREAST FOLD, DENIES PAIN, SLIGHT REDNESS NOTED 2OG RIGHT WRIST PIV PATENT AND INTACT. NOT ABLE TO ASPIRATE PLAN- MAXIMIZE COMFORT AND REST DURING THE SHIFT
[2024-05-07] MEDS ORDERED: methylPREDNISolone SOD SUCC 40 MG/ML VIAL IV SCH (21:00)
--- NOTE | 2024-05-07 21:06 | NUR ---
ELIZABETH IS RESTING IN BED. HOME TRILOGY IN USE WITH A 4L BLEED IN. LIGHTS DIMMED, BLANKETS PROVIDED, BED ADJUSTED, AND ROOM TEMPERATURE LOWERED PER PREFERENCE. NO OTHER NEEDS IDENTIFIED AT THIS TIME
[2024-05-07] MEDS ORDERED: INSULIN GLARGINE-YFGN 100 UNIT/ML ML SUB-Q SCH (21:30)
--- NOTE | 2024-05-07 22:20 | NUR ---
ELIZABETH IS RESTING IN BED WITH EYES CLOSED. NO NEEDS ENDORSED OR IDENTIFIED AT THIS TIME. VSS AND WDL PER MONITOR.
[2024-05-08] VITALS (7 sets, daily range): BP systolic 110–158; BP diastolic 52–86
--- NOTE | 2024-05-08 01:10 | NUR ---
ELIZABETH IS RESTING WITH EYES CLOSED. INDEPENDENT REPOSITION ONTO RIGHT SIDE. SHE APPEARS COMFORTABLE AND WITHOUT DISTRESS.
[2024-05-08 05:40] LABS: BASOPHILS 0.2 % (0-2); HEMATOCRIT 37.3 % (35.0-50.0); HEMOGLOBIN 11.8 g/dL (12.0-18.0); LYMPHOCYTES 2.7 % (24-44); MCH 28.5 (27-36); MCHC 31.7 g/dl (30-36); MCV 90.1 fl (81-99); MONOCYTES 3.2 % (0-12); NEUTROPHILS 93.9 % (39-80); PLATELET COUNT 137 K/uL (140-440); RBC 4.14 M/ul (4.3-5.7); RDW 18.6 (10.5-15.0)
--- NOTE | 2024-05-08 05:43 | NUR ---
PUREWICK CHANGED PER POLICY. SMALL SMEAR NOTED. JAY CARE PERFORMED. VSS AND WDL PER MONITOR
[2024-05-08 05:59] LABS: ALBUMIN 3.5 g/dL (3.4-5.0); ALBUMIN/GLOBULIN RATIO 1.09 (1.1-2.4); ANION GAP 8.8 (7-21); BILIRUBIN, TOTAL 0.8 ng/dL (0.2-1.0); BUN/CREATININE RATIO 41.8 (6.0-28.6); CALCIUM 9.1 mg/dL (8.5-10.1); CREATININE, SERUM 1.22 mg/dL (0.55-1.02); MAGNESIUM 2.5 mg/dL (1.8-2.4); POTASSIUM 4.8 mmol/L (3.5-5.1); PROTEIN, TOTAL 6.7 g/dL (6.4-8.2)
[2024-05-08 06:01] LABS: DIGOXIN 1.1 ng/dL (0.9-2.0)
--- NOTE | 2024-05-08 06:58 | NUR ---
ELIZABETH HAD A RESTFUL EVENING. COMFORT WAS MAINTAINED THOUGHOUT THE SHIFT. NO ADDITIONAL NEEDS OR CONCERNS IDENTIFIED NEURO- NO CHANGE CARDIAC- NO CHANGE RESP- NO CHANGE GI/- PASSING FLATUS/ SMALL SMEAR INT- NO CHANGE LDA PATENT AND INTACT
--- NOTE | 2024-05-08 07:30 | NUR ---
REPORT RECEIVED. PATIENT IS AWAKE. HAD BEEN ON HER TRILOGY, NOW ON HIGH FLOW O2 AT 6 LITERS. DENIES PAIN.
--- NOTE | 2024-05-08 08:00 | NUR ---
ASSESSMENT DONE. ACCUCHECK-319. INSULIN 7 UNITS GIVEN. NEB TREATMENT GIVEN BY RT. AFTER TREATMENT, PATIENT SITTING AT BEDSIDE FOR BREAKFAST. TALKED WITH PATIENT ABOUT POC FOR THE DAY, INDICATES UNDERSTANDING. STATES SHE SLEPT WELL LAST NIGHT. DENIES PAIN.
--- NOTE | 2024-05-08 08:24 | NUR ---
REVIEWED PATIENT EQUIPMENT AT HOME. STATES HER CONCENTRATOR AT HOME GOES UP TO 10 LITERS. SHE HAS HER NON-INVASIVE VENT AT THIS TIME FOR HOME AND STATES SHE HAS NO OTHER CM NEEDS AT THIS TIME.
--- NOTE | 2024-05-08 08:30 | NUR ---
BACK TO BED AFTER BREAKFAST. UPON RETURN TO BED, O2 SAT DOWN TO 83. HIGH FLOW O2 INCREASED TO 15 L. INCREASED SHORTNESS OF BREATH WITH EXERTION. WILL CONTINUE TO MONITOR O2 SATS.
[2024-05-08] MEDS ORDERED: TORSEMIDE 20 MG TAB PO SCH (09:00)
--- NOTE | 2024-05-08 09:20 | NUR ---
O2 SAT ON 15 L HIGH FLOW, 88. OOB TO CHAIR. TRANSFERS WELL WITH WALKER. RESTING HR 88, WITH ACTIVITY HR TO 110. TOLERATED MOVMENT MUCH BETTER TODAY. SUPPOSITORY GIVEN PATIENT HASN'T HAD A BM FOR SEVERAL DAYS.
[2024-05-08] MEDS ORDERED: bisacodyL 10 MG SUPP ONE (09:32)
[2024-05-08] MEDS ORDERED: bisacodyL 10 MG SUPP PR PRN (09:45)
--- NOTE | 2024-05-08 10:34 | NUR ---
SLEEPING. REMAINS IN CHAIR. ON HIGH FLOW O2 AT 15 LITERS. O2 SAT 88.
--- NOTE | 2024-05-08 11:00 | NUR ---
AMBULATED TO BR USING WALKER, HR AT REST 90, HR WITH ACTIVITY 110, TOLERATED AMBULATION WELL. O2 TO 15 LITERS. PATIENT EXPELLED SMALL FORMED STOOL, THEN BACK TO CHAIR. INCREASED SHORTNESS OF BREATH WITH EXERTION.
--- NOTE | 2024-05-08 11:11 | NUR ---
INTO SEE PATIENT. DISCUSSED IF THE PATIENT WAS IN NEED OF SNF WHERE SHE WOULD LIKE TO GO. WOULD LIKE [facility] BUT WOULD GO ANYWHERE LOCAL.
--- NOTE | 2024-05-08 12:00 | NUR ---
ASSESSMENT UNCHANGED. ACCUCHECK-273. 5 UNITS INSULIN SQ GIVEN. SITTING IN CHAIR READY TO EAT LUNCH.
--- NOTE | 2024-05-08 12:40 | NUR ---
TOOK LUNCH WELL. BACK TO BED WITH SUPERVISION OF PHYSICAL THERAPY. PT NOW WORKING WITH PATIENT. TOLERATED TREATMENT WELL. SEE PT NOTE.
--- NOTE | 2024-05-08 13:20 | NUR ---
READY TO NAP. PATIENT OWN BIPAP APPLIED WITH 4 L O2 BLED IN. DENIES PAIN.
--- NOTE | 2024-05-08 14:58 | NUR ---
CHART SENT TO [facility], [facility], [facility].
--- NOTE | 2024-05-08 15:00 | NUR ---
NAPPING WITH BIPAP ON. NO DISTRESS NOTED.
--- NOTE | 2024-05-08 17:00 | NUR ---
WOKE PATIENT FOR ACCUCHECK,ASSESSMENT AND DINNER. ACCUCHECK-405. WILL NOTIFY MD. SITTING AT BEDSIDE FOR DINNER. PATIENT STATES SHE FEELS LIKE SHE HAS HAS A BETTER DAY TODAY.
--- NOTE | 2024-05-08 17:30 | NUR ---
TOOK DINNER WELL. STOOD AT BEDSIDE WHILE BED LINES CHANGED. BACK TO BED AFTER SITTING AT BESIDE FOR DINNER. PUREWICK IN PLACE. HIGH FLOW 02 AT 10 LITERS. CALL LIGHT WITHIN REACH.
--- NOTE | 2024-05-08 19:21 | NUR ---
NO CHANGES. REPORT TO NEXT SHIFT.
--- NOTE | 2024-05-08 19:50 | NUR ---
HANDOFF REPORT RECEIVED FROM DAY SHIFT RN. PATIENT RESTING IN BED WATCHING TV WITH FRIEND AT BEDSIDE. NO DISTRESS NOTED. NO NEEDS AT THIS TIME. CALL LIGHT WITHIN REACH.
--- NOTE | 2024-05-08 20:35 | NUR ---
PATIENT ASSESSMENT COMPLETE. PATIENT AWAKE WATCHING TV. PATIENT ALERT AND ORIENTED, STATES SHE HAD A GOOD DAY. PATIENT REMAINS ON 10L HIGH FLOW NC, DENIES FEELING SOB OR PAIN AT THIS TIME. PATIENT HAS PUREWICK IN PLACE. PATIENT IV SITE WNL AND SALINE LOCKED. PATIENT UPDATED WITH PLAN OF CARE FOR THE NIGHT. PATIENT REMAINS IN AFIB, HEART RATE 80-90'S AT REST. PATIENT PROVIDED WITH FRESH ICE WATER AND SNACK PER REQUEST. NO FURTHER NEEDS AT THIS TIME. CALL LIGHT IN REACH.
[2024-05-08] MEDS ORDERED: INSULIN GLARGINE-YFGN 100 UNIT/ML ML SUB-Q SCH (21:00)
--- NOTE | 2024-05-08 21:15 | NUR ---
ACCFAINA 402. DOCTOR NOTIFIED. NO NEW CHANGES AT THIS TIME.
--- NOTE | 2024-05-08 21:45 | NUR ---
PATIENT PLACED ON HOME TRILOGY MACHINE WITH 4L O2. PATIENT DENTURES AND CONTACTS TAKEN OUT. PATIENT LIGHTS DIMMED PER REQUEST. NO FURTHER NEEDS AT THIS TIME. CALL LIGHT WITHIN REACH.
--- NOTE | 2024-05-08 23:00 | NUR ---
PATIENT RESTING IN BED WITH EYES CLOSED, RR 19. PATIENT REMAINS ON HOME TRILOGY MACHINE WITH 4L O2. NO DISTRESS NOTED. CALL LIGHT IN REACH
[2024-05-09] VITALS (9 sets, daily range): BP systolic 130–152; BP diastolic 59–76
--- NOTE | 2024-05-09 01:20 | NUR ---
PATIENT USED CALL LIGHT REQUESTING MORE WATER. WATER PROVIDED. NO FURTHER NEEDS AT THIS TIME. CALL LIGHT IN REACH.
[2024-05-09] MEDS ORDERED: IBLOOD GLUCOSE TEST STRIP 1 EA TEST VI ONE (03:00)
--- NOTE | 2024-05-09 03:10 | NUR ---
IN PATIENT ROOM FOR ACCUCHECK. PATIENT REMAINS ON HOME TRILOGY MACHINE WITH 4L O2. SPO2 91%. NO DISTRESS NOTED. PATIENT HAS NO NEEDS AT THIS TIME. CALL LIGHT IN REACH.
[2024-05-09 05:25] LABS: BASOPHILS 0.2 % (0-2); HEMATOCRIT 36.4 % (35.0-50.0); HEMOGLOBIN 11.7 g/dL (12.0-18.0); LYMPHOCYTES 3.7 % (24-44); MCH 28.6 (27-36); MCHC 32.1 g/dl (30-36); MCV 89.1 fl (81-99); MONOCYTES 5.4 % (0-12); NEUTROPHILS 90.7 % (39-80); PLATELET COUNT 130 K/uL (140-440); RBC 4.09 M/ul (4.3-5.7); RDW 18.5 (10.5-15.0)
--- NOTE | 2024-05-09 05:30 | NUR ---
patient resting in bed with eyes closed. patient continues to wear home BIPAP, with 4L O2. patient vital signs stable. no distress noted. call light in reach.
[2024-05-09 05:53] LABS: ALBUMIN 3.4 g/dL (3.4-5.0); ALBUMIN/GLOBULIN RATIO 1.06 (1.1-2.4); ANION GAP 10.8 (7-21); BILIRUBIN, TOTAL 0.9 ng/dL (0.2-1.0); BUN/CREATININE RATIO 42.6 (6.0-28.6); CALCIUM 8.9 mg/dL (8.5-10.1); CREATININE, SERUM 1.15 mg/dL (0.55-1.02); POTASSIUM 4.8 mmol/L (3.5-5.1); PROTEIN, TOTAL 6.6 g/dL (6.4-8.2)
--- NOTE | 2024-05-09 06:30 | NUR ---
PATIENT JARRELL SYEDCK CHANGED. JAY CARE PROVIDED. PATIENT HAS NO NEEDS AT THIS TIME. CALL LIGHT IN REACH.
--- NOTE | 2024-05-09 07:30 | NUR ---
REPORT RECEIVED. PATIENT SLEEPING ON TRILOGY. NO DISTRESS NOTED.
[2024-05-09] MEDS ORDERED: INSULIN LISPRO 100 UNIT/ML ML IV SCH (08:00)
--- NOTE | 2024-05-09 08:00 | NUR ---
WOKE FOR ASSESSMENT, ACCUCHECK DONE. RT IN ROOM GIVING NEB TREATMENT. AFTER NEB TREATMENT, SITTING UP AT BEDSIDE FOR BREAKFAST. SHORT OF BREATH WITH EXERTION. DENIES PAIN. UNDERSTANDING OF POC FOR THE DAY.
--- NOTE | 2024-05-09 08:30 | NUR ---
TOOK BREAKFAST WELL. BACK TO BED, REMAINS ON HIGH FLOW 02 AT 2 LITERS.
[2024-05-09] MEDS ORDERED: methylPREDNISolone SOD SUCC 40 MG/ML VIAL IV SCH (09:00)
[2024-05-09] MEDS ORDERED: predniSONE 20 MG TAB PO SCH (09:00)
--- NOTE | 2024-05-09 09:49 | NUR ---
RESTING IN BED. HIGH FLOW O2 AT 9 LITERS. O2 SAT 89.
--- NOTE | 2024-05-09 10:17 | NUR ---
[facility], [facility], STATES THEY CAN ACCEPT PATIENT WHEN SHE IS MEDICALLY CLEARED.
--- NOTE | 2024-05-09 11:00 | NUR ---
PHYSICAL THEAPY HERE TO WORK WITH PATIENT.
--- NOTE | 2024-05-09 11:10 | NUR ---
TO CT VIA W/C ON 15 L HIGH FLOW O2. RN AND NURSIONG STUDENT WITH PATIENT.
--- NOTE | 2024-05-09 11:11 | NUR ---
PT NOT AVAILABLE FOR VISIT. PROVIDED PRAYER.
--- NOTE | 2024-05-09 11:45 | NUR ---
RETURN TO CCU, TOLERATED CT WELL. SITTING IN W/C READY FOR LUNCH. O2 DECREASED TO 7 L.
[2024-05-09] MEDS ORDERED: INSULIN LISPRO 100 UNIT/ML ML SUB-Q SCH (12:00)
--- NOTE | 2024-05-09 12:00 | NUR ---
CONTINUE TO SIT IN W/C EATING. ASSESSMENT DONE. LUNGS REMAIN WITH SCATTERED WHEEZES. NO FURTHER CHANGES.
--- NOTE | 2024-05-09 12:45 | NUR ---
BACK TO BED AFTER EATING. WAS INCONT OF LARGE AMOUNT OF URINE WHILE SITTING IN W/C PUREWICK WAS NOT FUCTIONAL. CONTINUES TOP HAVE INCREASE SHORTNESS OF BREATH WITH EXERTION.
--- NOTE | 2024-05-09 13:00 | NUR ---
BACK TO BED. ON HIGH-FLOW O2.
--- NOTE | 2024-05-09 13:30 | NUR ---
SLEEPING ON HIGH FLOW O2, AT 7 LITERS O2 SAT 94, O2 [id number] TO 6 LITERS.
--- NOTE | 2024-05-09 14:00 | NUR ---
AWAKE, ASKING FOR TRILOGY TO BE APPLIED, BLEED IN O2 AT 4L. THIS DONE. PATIENT W/O REQUEST. SIDERAILS UP PER PATIENT REQUEST.
--- NOTE | 2024-05-09 14:14 | NUR ---
SPOKE WITH JOSEPH AT [facility] AND FLAQUITA AT [facility], BOTH ARE CONSIDERING ACCEPTING PATIENT. CONCERNS WITH OXYGEN NEEDS AT BOTH FACILITIES. INFORMED SHE IS NOT YET READY FOR DC AND WILL KEEP THEM UPDATED.
[2024-05-09] MEDS ORDERED: levoFLOXacin 750 MG TAB PO SCH (17:00)
[2024-05-09] MEDS ORDERED: AZITHROMYCIN 250 MG TAB PO SCH (17:00)
--- NOTE | 2024-05-09 17:00 | NUR ---
WOKE FOR ASSESSMENT, ACCUCHECK, MEDICATIONS. ACCUCHECK 325 TOTLAO 0F 17 UNITS INSULIN TO BE GIVEN . AFTER ASSESSMENT, SITTING UP AT BEDSIDE TO EAT DINNER.
--- NOTE | 2024-05-09 17:40 | NUR ---
TOOK DINNER WELL. POWDER APPLEID TO PANNUS, UNDER LEFT BREAST, AND LEFT UNDER ARM.
[2024-05-09 18:27] LABS: INFLUENZA B NAA NEGATIVE (NEGATIVE); RESPIRATORY SYNCYTIAL VIR NAA NEGATIVE (NEGATIVE)
--- NOTE | 2024-05-09 18:51 | NUR ---
RESTING. HIGH FLOW O2 AT 7 L . PATIENT W/O C/O.
--- NOTE | 2024-05-09 19:16 | NUR ---
ANY DOUGLAS: [id number]: EPAP MIN/MAX: 10/20, PS: 15, AUTO RATE: ON, TI MIN/MAX: 0.80/2.0, TI TIMED: AUTO, INSP SENSITIVITY: AUTO, EXP SENSITIVITY: 50%, INS LOCKOUT TIME: 90S, TARGET VOLUME: ON, TARGET VOLUME: 480ML, PS MAX: [id number], SPEED: 3, PRESSURE RISE: 1, PRESSURE DROP: 4 WITH A MEDIUM AIRFIT FULL FACE MASK
--- NOTE | 2024-05-09 19:45 | NUR ---
handoff report received from day shift RN. patient awake in bed. no distress noted. patient has no needs at this time. call light in reach.
--- NOTE | 2024-05-09 20:30 | NUR ---
PATIENT ASSESSMENT COMPLETE. PATIENT AWAKE IN BED. PATIENT ON 7L HIGH FLOW NC, SPO2 91%. PATIENT LUNG SOUNDS WHEEZY IN UPPER LOBES AND DIMINSIHED IN LOWER LOBES. PATIENT NOTED TO HAVE OCCASIONAL NON-PRODUCTIVE COUGH. PATIENT DENIES ANY PAIN OR FEELING SOB AT THIS TIME. PATIENT PURE WICK IN PLACE. IV SITE WNL. PATIENT CONTINUES TO HAVE +2 EDEMA IN BLE. PATIENT PROVIDED WITH SNACK PER REQUEST. NO FURTHER NEEDS AT THIS TIME. CALL LIGHT IN REACH.
[2024-05-09] MEDS ORDERED: INSULIN GLARGINE-YFGN 100 UNIT/ML ML SUB-Q SCH (21:00)
--- NOTE | 2024-05-09 21:30 | NUR ---
PATIENT PLACED ON HOME BIPAP MACHINE WITH 4L O2. PATIENT DENTURES TAKEN OUT. LIGHTS DIMMED PER REQUEST. NO FURTHER NEEDS AT THIS TIME. CALL LIGHT IN REACH.
--- NOTE | 2024-05-09 23:51 | NUR ---
patient up to bathroom with FWW and X1 SBA. patient steady on feet. patient placed on 12L high flow NC with O2 saturation at 89%. patient heart rate up to 130's with movement. patient states she feels SOB with movement. patient back to bed, new pure wick placed and willem care provided. patient repositioned in bed and placed back on home BIPAP with 4L O2. no further needs at this time. call light in reach.
--- NOTE | 2024-05-10 02:08 | NUR ---
PATIENT HAD EPISODE OF EMESIS. PRN ZOFRAN GIVEN PER EMAR. PATIENT UP TO CHAIR WITH FWW. PATIENT LINEN AND GOWN CHANGED. PATIENT ON 13L HIGH FLOW NC, SOB WITH MOVEMENT. PATIENT STATES SHE IS FEELING BETTER NOW. PATIENT HAS CALL LIGHT IN REACH.
--- NOTE | 2024-05-10 02:48 | NUR ---
PATIENT AMBULATES BACK TO BED WITH FWW, STEADY ON FEET. PATIENT REPOSITIONED IN BED. PATIENT HOME BIPAP WITH 4L O2 PLACED BACK ON. CALL LIGHT IN REACH.
--- NOTE | 2024-05-10 04:14 | NUR ---
PATIENT RESTING IN BED WITH EYES CLOSED, RR 19. PATIENT REMAINS ON HOME BIPAP MACHINE WITH 4L O2. NO NEEDS AT THIS TIME. PATIENT HAS CALL LIGHT IN REACH.
[2024-05-10 04:26] VITALS: BP 164/100
--- NOTE | 2024-05-10 05:05 | NUR ---
PLACED CALL TO MD TO UPDATE ON PATIENTS STATUS. MD UPDATED ON PATIENTS NAUSEA AND INCREASED HEART RATE. VERBAL ORDER RECEIVED FOR NEW NAUSEA MEDICATION. VERBAL ORDER VERIFIES USING THE REPEAT BACK METHOD.
[2024-05-10] MEDS ORDERED: PROCHLORPERAZINE EDISYLATE 10 MG/2 ML VIAL IV PRN (05:15)
--- NOTE | 2024-05-10 05:22 | NUR ---
PATIENT IS RESTING IN RECLINER. PATIENT CONTINUES TO REPORT NAUSEA, PRN NAUSEA MEDICATION GIVEN PER ORDER. PATIENT DENIES ANY PAIN. PATIENT DENIES ANY FURTHER NEEDS. CALL LIGHT IN REACH.
[2024-05-10 05:30] LABS: HEMATOCRIT 42.1 % (35.0-50.0); HEMOGLOBIN 13.2 g/dL (12.0-18.0); MCH 28.4 (27-36); MCHC 31.3 g/dl (30-36); MCV 90.5 fl (81-99); PLATELET COUNT 175 K/uL (140-440); RBC 4.65 M/ul (4.3-5.7); RDW 18.4 (10.5-15.0)
--- NOTE | 2024-05-10 05:32 | NUR ---
20G, 1.75" USIV PLACED @ 0.75CM IN DEPTH. PT TOLERATED WELL. GOOD BLOOD RETURN, FLUSHED WELL. LABS DRAWN AND SENT.
[2024-05-10 05:44] LABS: BANDS, MANUAL DIFF 1; LYMPHOCYTES, MANUAL DIFF 3; MONOCYTES, MANUAL DIFF 5; NEUTROPHILS, MANUAL DIFF 91
[2024-05-10 05:55] LABS: ALBUMIN 3.9 g/dL (3.4-5.0); ALBUMIN/GLOBULIN RATIO 1.26 (1.1-2.4); ANION GAP 9.6 (7-21); BILIRUBIN, TOTAL 1.5 ng/dL (0.2-1.0); CALCIUM 9.5 mg/dL (8.5-10.1); CREATININE, SERUM 1.2 mg/dL (0.55-1.02); MAGNESIUM 2.7 mg/dL (1.8-2.4); POTASSIUM 4.6 mmol/L (3.5-5.1)
--- NOTE | 2024-05-10 06:00 | NUR ---
PATIENT REQUEST TO GET BACK IN BED. PATIENT AMBULATES WITH FWW, AND X1 SBA. PATIENT REPOSITONED IN BED, PURE WICK PLACED. PATIENT HAS NO NEEDS AT THIS TIME. CALL LIGHT WITHIN REACH.
--- NOTE | 2024-05-10 07:20 | NUR ---
PATIENT HIT CALL LIGHT, REQUESTING TO MOVE TO CHAIR. PT TRILOGY REMOVED, 10 L HIGH FLOW NASAL CANNULA APPLIED, ASSISTED PT INTO SITTING POSITION, WALKER PLACED IN FRONT OF PT, HELPED 50% TO STAND, PT ABLE TO AMBULATE TO CHAIR SBA WITH WALKER, IN CHAIR, FRESH ICE WATER PROVIDED, BEDSIDE TABLE AND CALL LIGHT WITHIN REACH
--- NOTE | 2024-05-10 08:01 | NUR ---
PATIENT NAUSEA AND VOMITTING. PRN ZOFRAN GIVEN, PT REQUESTING ENEMA, STATES SHE WILL CONTINUE TO BE NAUSEAS UNTIL SHE HAS A BOWEL MOVEMENT. PRIMARY RN NOTIFIED.
--- NOTE | 2024-05-10 08:09 | NUR ---
UR CONCURRENT REVIEW: [facility]-DOES NOT MEET GL DAY 2; VIARANCE COMPLETE ODS [facility] INPT 05/02/24 @ 1129 ONGOING AUTH RECVD FROM [facility] DISCHARGE PENDING FURTHER NEEDS EVALUATION 05/13/24
[2024-05-10 08:14] VITALS: BP 172/101
--- NOTE | 2024-05-10 08:41 | NUR ---
PT GIVEN PRN SUPPOSISTORY, ASSISTED BY BACK TO BED, 2 PERSON ASSIST OUT OF CHAIR, PT AMBULATED TO BED SBA WITH WALKER, PT ASSISTED IN BED, PLACED ON SIDE AND SUPPOSISTORY INSERTED. PT COVERED WITH WARM BLANKETS, CALL LIGTH WITHIN REACH
--- NOTE | 2024-05-10 08:42 | NUR ---
WAITING FOR NAUSEA TO SUBSIDE PRIOR TO GIVING PO MEDS, INSULIN, AND BREAKFAST
[2024-05-10] MEDS ORDERED: TORSEMIDE 5 MG TAB PO SCH (09:00)
--- NOTE | 2024-05-10 09:34 | NUR ---
PT REPORTS INCREASED DYSPNEA, REQUESTING TO GO BACK ON HER TRIOLOGY. ASKED ABOUT HER NAUSEA AND NEED TO HAVE A BOWEL MOVEMENT. PER PT SHE IS STILL NAUSEAS AND DOESN'T FEEL LIKE SHE NEEDS TO DEFICATE YET. PTS HEART RATE IN 130'S, INFORMED PT ON NEED TO GIVE HER PO DILT ONCE SHE CAN BREATH EASIER. CALL LIGHT WITHIN REACH, PT POSITIONED IN WITH HOB ELEVATED TO 30 DEGREES. 02 INCREASED TO 6L ON TRIOLOGY
--- NOTE | 2024-05-10 09:59 | NUR ---
MEDICATIONS PULLED FOR PT, PT REFUSING TO TAKE, STATES SHE CANT BREATH, DOESN'T WANT TO REMOVE TRILOGY, PRIMARY RN NOTIFIED. DR CURRAN TO BE NOTIFIED
--- NOTE | 2024-05-10 10:08 | NUR ---
SPOKE WITH PATIENT REGARDING DC PLAN. CONTINUE TO PLAN FOR SNF WHEN SHE IS READY. NOT YET READY FOR DC. [facility] PENDING ACCEPTANCE.
[2024-05-10] MEDS ORDERED: MINERAL OIL 133 ML BTL PR ONE (11:15)
--- NOTE | 2024-05-10 11:19 | NUR ---
PATIENT REMAINS WITH HOME BIPAP ON AND 6 L BLED INTO IT. ASKED PATIENT IF SHE FEELS LIKE SHE COULD TAKE SOME OF HER MEDICATIONS THAT WERE DUE THIS AM AND SHE STATES NO, THAT SHE FEELS TO NAUSEOUS. PT WAS GIVEN BOTH ZOFRAN AND COMPAZINE THIS AM ALREADY. KUB ORDERED AND IS GETTING DONE AT THIS TIME. PT WILL HAVE ENEMA NEXT TO WHICH SHE IS AGREEABLE TO.
[2024-05-10 12:37] VITALS: BP 159/102
[2024-05-10] MEDS ORDERED: MAGNESIUM CITRATE 300 ML BTL PO ONE (13:15)
--- NOTE | 2024-05-10 13:27 | NUR ---
VISITED DURING SPIRITUAL CARE ROUNDS. RT IN ROOM, PT EXPRESSED DIFFICULTY TALKING SO SHORT VISIT. EVP MANAGING DIRECTOR PROVIDED SUPPORTIVE PRESENCE, HOSPITALITY, PRAYER, FACILITATED INTERACTION WITH THERAPY ANIMAL. PT EXPRESSED GRATITUDE.
[2024-05-10 13:59] LABS: BASE EXCESS, BLOOD GAS 5.1 mmol/L (-2-2); HCO3, BLOOD GAS 31.2 mmol/L (22-26); O2 SATURATION, BLOOD GAS 91.3 % (95.0-100.0); OXYGEN RECEIVED, BLOOD GAS 5L; PCO2, BLOOD GAS 51.5 mmHg (35-45); PH, BLOOD GAS 7.39 (7.35-7.45); PO2, BLOOD GAS 64 mmHg (80-100); TOTAL CO2, BLOOD GAS 32.7
--- NOTE | 2024-05-10 14:45 | NUR ---
PATIENT UP TO BSC TO TRY AND HAVE A BM AGAIN. SHE HAS NOW DRANK ENTIRE BOTTLE OF MAG CITRATE. PRIOR TO THIS, PT WAS GIVEN AN ENEMA WITH MINIMAL RESULTS. PT DID HAVE SOME HARD STOOL BURDEN AND THIS WAS DIGITALLY REMOVED FOR HER. PT'S NAUSEA STILL CONTINUES, BUT SHE WAS ABLE TO EAT ONE CHOCOLATE PUDDING. PT WAS ABLE TO FINALLY TAKE HER AM MEDS. PUREWICK REMAINS IN PLACE WHEN SITTING IN CHAIR AND WHEN IN BED.
--- NOTE | 2024-05-10 14:58 | NUR ---
NUTRITION NOTE: LENGTH OF STAY. PATIENT HAS BEEN IN HOUSE FOR 8 DAYS. DIET ORDER IS 60 GM CONS CARB, 2 GM SODIUM DIET (NO SCRAMBLED EGGS DUE TO CAUSING HER TO CHOKE), 2000 ML FLUID RESTRICTION. PATIENT IS EATING 100% OF MEALS. PATIENT WAS NAUSEOUS TODAY SO DIDN'T EAT HER MEALS. PATIENT IS WAITING TO HAVE A BM. NO NUTRITION INTERVENTION NEEDED AT THIS TIME. RD WILL FOLLOW-UP IN 7 DAYS UNLESS NEEDED BEFORE THEN.
[2024-05-10 15:15] VITALS: BP 135/84
--- NOTE | 2024-05-10 15:23 | NUR ---
PATIENT USES CALL LIGHT AND WAS FINALLY ABLE TO HAVE A BM. PT HAD AN X-LARGE BM WITH BOTH LIQUID STOOL WELL FORMED STOOL. PT REPORTS FEELING BETTER. PT HAD A 2 KG WEIGHT CHANGE FROM THIS BM. PT NOW BACK IN BED AND HAS BIPAP ON WITH 4 L BLED IN FROM WALL 02. HR HAS REMAINED ELEVATED TODAY DESPITE TAKING AM MEDS-WILL DISCUSS WITH . CURRENTLY 120-130s WHILE PATIENT IS LAYING IN BED ASLEEP.
--- NOTE | 2024-05-10 18:57 | NUR ---
PATIENT RESTING AFTER DINNER WITH BIPAP ON AND 4 L BLED IN. PATIENT REMAINS IN AFIB, HOWEVER RATE IS MUCH BETTER CONTROLLED THIS EVENING. CURRENTLY UPPER 90s-100s. PT WAS ABLE TO EAT SOME OF HER DINNER TONIGHT.
--- NOTE | 2024-05-10 19:35 | NUR ---
handoff report received from day shift RN. patient resting in bed with eyes closed, RR 17. patient on home BIPAP with 4L O2. patient SPO2 91%. no distress noted. call light in reach.
--- NOTE | 2024-05-10 20:35 | NUR ---
ASSESSMENT COMPLETE. PATIENT RESTING IN BED WITH HOME TRILOGY ON WITH 4L O2 BLED IN. PATIENT SPO2 89%. PATIENT DENIES FEELING NAUSEOUS AT THIS TIME. PATIENT LUNG SOUNDS NOTED TO HAVE WHEEZES IN ROCKY. PATIENT DENIES FEELING SOB AT THIS TIME. PATIENT HEART RATE ELEVATED IN THE HIGH 90'S-120'S. PATIENT REMAINS IN AFIB. PATIENT PURE WICK IN PLACE, 300CC CONCENTRATED URINE EMPTIED FROM CANISTER. PATIENT IV SITE WNL. PATIENT HAS NO NEEDS AT THIS TIME, CALL LIGHT IN REACH.
[2024-05-10] MEDS ORDERED: INSULIN GLARGINE-YFGN 100 UNIT/ML ML SUB-Q SCH (21:00)
[2024-05-10 21:15] VITALS: BP 130/83
--- NOTE | 2024-05-10 22:44 | NUR ---
PATIENT ASSISTED BACK TO BED FROM [facility]. PATIENT HAD LARGE LOOSE STOOL. ASSISTED WITH JAY CARE. PATIENT RETURNED TO BED. POSITIONED FOR COMFORT. NEW PURE WIC PLACED. PATIENT BACK ON HOME AVAPS MACHINE. CALL LIGHT IN REACH. LIGHTS DIMMED PER REQUEST.
--- NOTE | 2024-05-10 23:30 | NUR ---
PATIENT RESTING IN BED WITH EYES CLOSED, RR 18. PATIENT REMAINS ON HOME BIPAP WITH 4L 02 BLED IN. PATIENT HAS NO NEEDS AT THIS TIME. CALL LIGHT IN REACH.
[2024-05-11] VITALS (8 sets, daily range): BP systolic 127–155; BP diastolic 63–105
--- NOTE | 2024-05-11 00:40 | NUR ---
PATIENT ASSESSMENT COMPLETE. PATIENT REMAINS ON HOME BIPAP WITH 4L O2 BLED IN. PATIENT SPO2 90%. PATIENT DENIES FEELING SOB OR NAUSEOUS AT THIS TIME. PATIENT REMAINS IN AFIB, HEART RATE 90-120'S. PATIENT HAS NO NEEDS AT THIS TIME, CALL LIGHT IN REACH.
--- NOTE | 2024-05-11 02:35 | NUR ---
PATIENT RESTING IN BED WITH EYES CLOSED, RESPIRATIONS EVEN AND UNLABORED. PATIENT REMAINS ON HOME TRILOGY WITH 4L O2 BLED IN. PATIENT SPO2 89%. PATIENT HAS CALL LIGHT IN REACH.
--- NOTE | 2024-05-11 05:28 | NUR ---
lab in room for morning lab draw. patient has no needs at this time, call light in reach.
[2024-05-11 05:42] LABS: HEMATOCRIT 42.4 % (35.0-50.0); HEMOGLOBIN 13.1 g/dL (12.0-18.0); MCH 27.8 (27-36); MCHC 30.9 g/dl (30-36); MCV 89.9 fl (81-99); PLATELET COUNT 132 K/uL (140-440); RBC 4.72 M/ul (4.3-5.7); RDW 18.4 (10.5-15.0)
[2024-05-11 05:54] LABS: ANION GAP 10.1 (7-21); BUN/CREATININE RATIO 39.28 (6.0-28.6); CALCIUM 8.7 mg/dL (8.5-10.1); CREATININE, SERUM 1.12 mg/dL (0.55-1.02); MAGNESIUM 3.2 mg/dL (1.8-2.4); POTASSIUM 5.1 mmol/L (3.5-5.1)
[2024-05-11 06:08] LABS: LYMPHOCYTES, MANUAL DIFF 5; MONOCYTES, MANUAL DIFF 3; NEUTROPHILS, MANUAL DIFF 92
--- NOTE | 2024-05-11 06:15 | NUR ---
SCHEDULED ABX GIVEN PER EMAR. PATIENT TAKEN OFF BIPAP AND PUT ON HIGH FLOW NC AT 4L, SPO2 88%. PATIENT DENIES FEELING SOB. PATIENT HEART RATE REMAINS 90-120. PATIENT PROVIDED WITH FRESH ICE WATER. PATIENT DENIES ANY NAUSEA. NO NEEDS AT THIS TIME. CALL LIGHT IN REACH.
--- NOTE | 2024-05-11 06:44 | NUR ---
PATIENT PLACED BACK ON HOME BIPAP MACHINE WITH 4L O2 BLED IN. PATIENT SPO2 91%. PATIENT HAS NO FURTHER NEEDS AT THIS TIME. CALL LIGHT IN REACH.
--- NOTE | 2024-05-11 07:30 | NUR ---
REPORT RECIVED FROM BAND [employer] MILL AND CARRIAGE OPERATOR RN. PATIENT RESTING IN BED ON HOME TRILOGY.
[2024-05-11] MEDS ORDERED: acetaZOLAMIDE 250 MG TAB PO ONE ×2 (08:00→12:30)
--- NOTE | 2024-05-11 08:30 | NUR ---
STUDENT RN IN TO ASSIST IN CARES WITH THIS PATIENT. SEE STUDENT CHARTING FOR CARES.
[2024-05-11] MEDS ORDERED: acetaZOLAMIDE 250 MG TAB ONE (09:16)
--- NOTE | 2024-05-11 09:18 | NUR ---
CALLED BRANDI AT [facility] AND LEFT MESSAGE TO TELL HER PATIENT IS READY FOR DC. UPDATES FAXED TO [facility].
--- NOTE | 2024-05-11 09:35 | NUR ---
SPOKE WITH BRANDI AT [facility], AWAITING AUTH FROM [facility] FOR PLACEMENT. POTENTIAL FOR ADMIT LATER TODAY OR TOMORROW.
--- NOTE | 2024-05-11 09:44 | NUR ---
PATIENT'S BLOOD GLUCOSE WAS 190. WE GOT HER UP TO THE COMMODE AND SHE HAD A LARGE LIQUID BOWEL MOVEMENT. WHILE HELPING HER WIPE WE NOTICED HER FISSURE BETWEEN HER BUTTOCK CHEEKS WAS BLEEDING. WE PUT BARRIER CREAM ON IT AND EDUCATED ON PURPOSE OF CREAM. AFTER USING THE COMMODE WE HELPED TRANSFER HER TO HER CHAIR. SHE USED A WALKER AND TOLLERATED IT WELL. SHE ATE HER BREAKFAST AND THEN WANTED TO GO BACK TO BED BECAUSE OF THE CHAIR BEING UNCOMFORTABLE. ASSESSMENT DOCUMENTED AND CALL LIGHT WITHIN REACH.
--- NOTE | 2024-05-11 09:59 | NUR ---
RT MONITORING RECOVERY TIMES AFTER AMBULATION. SpO2 DOWN TO 85% WITH AMBULATION AND RECOVERY TIME IS LESS THAN 1.5 MINUTES. DISCUSSED WITH MD THAT THIS IS LIKELY BASELINE.
--- NOTE | 2024-05-11 09:59 | NUR ---
SPOKE WITH PATIENT AND UPDATED SHE MAY GO TO [facility] TODAY OR TOMORROW FOR SNF VIA WHEELCHAIR VAN. VERBALIZES UNDERSTANDING. DENIES OTHER CM NEEDS AT THIS TIME.
--- NOTE | 2024-05-11 10:28 | NUR ---
VISITED DURING SPIRITUAL CARE ROUNDS. PT APPEARED TO BE SLEEPING. DID NOT DISTURB. PROVIDED PRAYER.
[2024-05-11 12:30] LABS: TSH, 3RD GENERATION 0.751 uIU/mL (0.358-3.740)
[2024-05-11] MEDS ORDERED: bisacodyL 10 MG SUPP PR PRN (12:30)
[2024-05-11] MEDS ORDERED: ALBUTEROL SULFATE 0.083% 3 ML VIAL INH PRN (12:30)
[2024-05-11] MEDS ORDERED: DEXTROSE 5% 1,000 ML IV PRN (12:30)
[2024-05-11] MEDS ORDERED: DEXTROSE 50% 50 ML SYR IV PRN ×2 (12:30)
[2024-05-11] MEDS ORDERED: ACETAMINOPHEN 325 MG TAB PO PRN (12:30)
[2024-05-11] MEDS ORDERED: ondansetron HCL 4 MG/2 ML VIAL IV PRN (12:45)
[2024-05-11] MEDS ORDERED: GLUCAGON,HUMAN RECOMBINANT 1 MG/ML VIAL SUB-Q PRN (12:45)
[2024-05-11] MEDS ORDERED: PROCHLORPERAZINE EDISYLATE 10 MG/2 ML VIAL IV PRN (12:45)
[2024-05-11] MEDS ORDERED: IBLOOD GLUCOSE TEST STRIP 1 EA TEST XX PRN (12:45)
--- NOTE | 2024-05-11 13:00 | NUR ---
PATIENT ONLY HAS HAD APPROX 200 URINE OUTPUT. PATIENT DENIES NEED TO VOID. BLADDER SCAN COMPLETED AND NOTED TO HAVE >800 ON SCANS. WILL UPDATE MD.
[2024-05-11] MEDS ORDERED: IBLOOD GLUCOSE TEST STRIP 1 EA TEST XX SCH ×2 (13:15→17:00)
[2024-05-11] MEDS ORDERED: INSULIN LISPRO 100 UNIT/ML ML SUB-Q SCH ×4 (13:15→17:00)
--- NOTE | 2024-05-11 14:19 | NUR ---
NOTIFIED BY BRANDI AT [facility], PATIENT CAN BE ACCEPTED TOMORROW MORNING. DR. CURRAN NOTIFIED. WILL CALL TO SCHEDULE WHEELCHAIR VAN.
--- NOTE | 2024-05-11 14:27 | NUR ---
REPORT RECEIVED FROM OFF GOING RN. PATIENT RESTING IN BED AT THIS TIME. MD UPDATED ON PVR/BLADDER SCAN. MD GAVE TELEPHONE ORDERS TO STRAIGHT CATH PATIENT. ORDERS VERIFIED VIA VERBAL READ BACK.
[2024-05-11] MEDS ORDERED: LIDOCAINE 2% VISCOUS 6 ML SYR TOP ONE (14:30)
--- NOTE | 2024-05-11 14:46 | NUR ---
PATIENT UP TO BATHROOM AND BACK TO BED AND RECHECK OF BLADDER SCAN STILL SHOWS >800 WILL STRAIGHT CATH FOR RESULTS PER MD.
--- NOTE | 2024-05-11 15:08 | NUR ---
Patient straight cathed with a return of dark concentrated urine. 1000mls total urine return.
--- NOTE | 2024-05-11 15:29 | NUR ---
WHEELCHAIR VAN SCHEDULED FOR 11:30 AM TO [facility].
[2024-05-11] MEDS ORDERED: TAMSULOSIN HCL 0.4 MG CAP PO SCH (16:00)
[2024-05-11] MEDS ORDERED: ALBUTEROL/IPRATROPIUM 3 ML NEB INH SCH (16:00)
--- NOTE | 2024-05-11 16:08 | NUR ---
NOTIFIED OF PATIENT URINE RETURN POST STRAIGHT CATH. NEW ORDERS SEE JUN.
[2024-05-11] MEDS ORDERED: LURASIDONE HCL 80 MG TAB PO SCH (17:00)
--- NOTE | 2024-05-11 20:10 | NUR ---
REPORT RECEIVED FROM FUNMILAYO PONCE. PATIENT RESTING IN BED WITH VISITOR AT BEDSIDE. RT IN ROOM FOR TREATMENT. DENIES NEEDS AT THIS TIME. CALL LIGHT IN REACH.
[2024-05-11] MEDS ORDERED: MICONAZOLE NITRATE 1 EA BTL TOP SCH (21:00)
[2024-05-11] MEDS ORDERED: POLYETHYLENE GLYCOL 3350 1 PACKET PO SCH (21:00)
[2024-05-11] MEDS ORDERED: INSULIN GLARGINE-YFGN 100 UNIT/ML ML SUB-Q SCH ×2 (21:00)
[2024-05-11] MEDS ORDERED: VARENICLINE TARTRATE 1 MG TAB PO SCH (21:00)
[2024-05-11] MEDS ORDERED: APIXABAN 5 MG TAB PO SCH (21:00)
[2024-05-11] MEDS ORDERED: BUDESONIDE 0.5 MG/2 ML VIAL INH SCH (21:00)
[2024-05-11] MEDS ORDERED: SENNOSIDES/DOCUSATE 1 EA TAB PO SCH (21:00)
--- NOTE | 2024-05-11 21:59 | NUR ---
PATIENT DUE TO VOID. NO OUTPUT NOTED FROM PUREWICK. PATIENT DENIES NEED TO VOID. BLADDER SCANNED FOR >635. PATIENT UP TO COMMODE TO ATTEMPT TO VOID BUT UNSUCCESSFUL. PATIENT HAD DECREASED ACTIVITY TOLERANCE, PATIENT WAS TACHYPNEIC AND TACHYCARDIC WITH ACTIVITY. HR INCREASED TO 130S AND O2 SAT DECREASED TO 80-81% ON 4L NC. BACK TO BED, PLACED BACK ON OWN TRILOGY WITH IMPROVEMENT IN O2 SAT TO 93%.
--- NOTE | 2024-05-11 22:20 | NUR ---
REVIEWED RESULTS OF BLADDER SCAN AND PATIEN'TS INABILITY TO VOID WITH DR. CURRAN. ORDER RECEIVED FOR INDWELLING COSTELLO AND TO SEND A URINE SPECIMEN TO LAB FOR UA.
--- NOTE | 2024-05-11 22:55 | NUR ---
COSTELLO CATHETER PLACED USING STERILE TECHNIQUE ON FIRST ATTEMPT. PATIENT TOLERATED WELL. IMMEDIATE RETURN OF 790ML OF TEA COLORED URINE. SPECIMEN SENT TO LAB FOR UA.
[2024-05-11 22:57] LABS: BILIRUBIN, URINE NEGATIVE (negative); BLOOD/HGB, URINE NEGATIVE (Negative); KETONE, URINE NEGATIVE (Negative); LEUK ESTERASE, URINE NEGATIVE (negative); NITRITE, URINE NEGATIVE (negative); PH, URINE 8.5 (5-7)
[2024-05-11 23:02] LABS: BACTERIA, URINE RARE /hpf (negative); CASTS, URINE NONE SEEN \\lpf; COLLECTION TYPE, URINE CATH; CRYSTALS, URINE NONE SEEN (0-1+); EPITHELIAL CELLS, URINE SQUAMOUS 1+ /lpf (0-1+); RED BLOOD CELLS, URINE 0-1 /hpf (0-5); REFLEX CULTURE, URINE No (No); WHITE BLOOD CELLS, URINE 0-1 /HPF (0-5)
[2024-05-12 00:09] VITALS: BP 140/74
--- NOTE | 2024-05-12 01:11 | NUR ---
PATIENT RESTING WITH EYES CLOSED. TRILOGY IN PLACE WITH 4L O2. RESPIRATIONS EVEN AND UNLABORED; O2 SAT 93%. COSTELLO CATHETER PATENT AND DRAINED FOR 200ML. CALL LIGHT IN REACH.
[2024-05-12 02:39] VITALS: BP 147/97
--- NOTE | 2024-05-12 02:42 | NUR ---
PATIENT CONTINUES TO REST; WAKES TO NAME FOR ASSESSMENT. VS CHARTED. DENIES NEEDS, PAIN OR CONCERNS. CALL LIGHT IN REACH.
[2024-05-12 05:28] VITALS: BP 147/124
[2024-05-12] MEDS ORDERED: levoFLOXacin 750 MG TAB PO SCH (06:00)
--- NOTE | 2024-05-12 06:42 | NUR ---
PATIENT WOKE EASILY FOR PO ABX. DENIES NEEDS OR CONCERNS AT THIS TIME. CALL LIGHT IN REACH.
--- NOTE | 2024-05-12 07:30 | NUR ---
REPORT RECEIVED FROM STRUCTURAL STEEL IRONWORKER RN. PATIENT RESTING IN BED WITH EYES CLOSED. REPIRATIONS EVEN AND UNLABORED. PATIENT WITH TRILIGY IN PLACE. CALL LIGHT WITHIN REACH.
[2024-05-12 08:05] VITALS: BP 144/67
--- NOTE | 2024-05-12 08:30 | NUR ---
AM MEDICATIONS ADMINSTERED. NOTED LUNG SOUNDS TO BE DIMINISHED THROUGHOUT WITH WHEEZING HEARD IN LEFT UPPER LOBE. HEART SOUNDS IRREGULAR. PATIENT DENIES ANY CHEST PAIN AT THIS TIME. PATIENT REQIESTING ASSISTANCE TO SIT ON EDGE OF BED TO EAT BREAKFAST. PATIENT ASSISTED TO SIDE OF BED WITH FEET DANGLING WHILE EATTING. TOLLERATER WELL. WHILE RETURNING BACK TO BED PATIENT NOTED TO DESAT TO 82%. RECOVERED QUICKLY. PATIENT WITH +2 EDEMA TO BILATERAL LOWER EXTERMITIES AND PANNUS. COSTELLO IN PLACE DRIANING YELLOW URINE. PATIENT WITH NO FURTHER NEEDS AT THIS TIME. CALL LIGHT WITHIN REACH.
--- NOTE | 2024-05-12 08:55 | NUR ---
IN ROOM TO SEE PATIETN AT THIS TIME.
[2024-05-12] MEDS ORDERED: MONTELUKAST SODIUM 10 MG TAB PO SCH (09:00)
[2024-05-12] MEDS ORDERED: FOLIC ACID 1 MG TAB PO SCH (09:00)
[2024-05-12] MEDS ORDERED: TORSEMIDE 5 MG TAB PO SCH (09:00)
[2024-05-12] MEDS ORDERED: DIGOXIN 250 MCG TAB PO SCH (09:00)
[2024-05-12] MEDS ORDERED: dilTIAZem HCL 240 MG CAPCR PO SCH (09:00)
[2024-05-12] MEDS ORDERED: predniSONE 20 MG TAB PO SCH (09:00)
[2024-05-12] MEDS ORDERED: FLUOXETINE HCL 20 MG CAP PO SCH (09:00)
--- NOTE | 2024-05-12 10:19 | NUR ---
PATIENT RESTING IN BED ON BACK, HOB ELEVATED. NOTED EQUAL BILATERAL CHEST RISE AND FALL. NOTED CLEAR CONCENTRATED DRAINAGE IN COSTELLO DRAINAGE BAG, NO KINKS IN LINE. PATIENT IS WEARING TRILOGY MASK, OXYGEN SATURATION PER MONITOR IS 94%, HR 91, AND RESPIRATIONS 17. CALL LIGHT IN REACH.
[2024-05-12] MEDS ORDERED: LEVOFLOXACIN750 MG PO (10:41)
[2024-05-12] MEDS ORDERED: TAMSULOSIN HCL0.4 MG PO (10:42)
[2024-05-12] MEDS ORDERED: TORSEMIDE20 MG PO (10:42)
[2024-05-12] MEDS ORDERED: DILTIAZEM 24HR240 M1 PO (10:43)
[2024-05-12] MEDS ORDERED: LANOXIN250 MCG PO (10:43)
--- NOTE | 2024-05-12 10:47 | NUR ---
FAXED OVER CHART TO BRANDI AND LET HER KNOW PATIENT TO BE DISCHARGING AT 1130.
[2024-05-12 11:05] VITALS: BP 121/70
--- NOTE | 2024-05-12 11:05 | NUR ---
PATIENT DISCHARGED FROM FACILITY VIA W/C WITH WHEEL CHAIR TRANSPORT TO [facility]. RN CALLED REPORT TO [facility]. PATIENT DISCHARGED WITH ALL PERSONAL BLEONGINGS.
--- NOTE | 2024-05-12 11:12 | NUR ---
LET HANSA AT [facility] KNOW WE ARE SENDING A TANK.
== END 2024-05-12 11:25 | DRG 291 ==
LOC: ED 15:52 → CCU 17:33
PROVIDERS: Emergency Medicine; Family Medicine; Student in an Organized Health Care Education/Training Program; ADMIT Student in an Organized Health Care Education/Training Program; ATTEND Student in an Organized Health Care Education/Training Program
DX: I11.0 Hypertensive heart disease with heart failure (principal); I50.33 Acute on chronic diastolic (congestive) heart failure; J96.21 Acute and chronic respiratory failure with hypoxia; J96.22 Acute and chronic respiratory failure with hypercapnia; J44.1 Chronic obstructive pulmonary disease with (acute) exacerbation; N17.9 Acute kidney failure, unspecified; I31.39 Other pericardial effusion (noninflammatory); Z68.44 Body mass index [BMI] 60.0-69.9, adult; I48.0 Paroxysmal atrial fibrillation; E78.5 Hyperlipidemia, unspecified; E11.9 Type 2 diabetes mellitus without complications; K21.9 Gastro-esophageal reflux disease without esophagitis; I27.20 Pulmonary hypertension, unspecified; Z96.642 Presence of left artificial hip joint; Z96.641 Presence of right artificial hip joint; G47.33 Obstructive sleep apnea (adult) (pediatric); K59.00 Constipation, unspecified; R33.9 Retention of urine, unspecified; E03.9 Hypothyroidism, unspecified; E05.90 Thyrotoxicosis, unspecified without thyrotoxic crisis or storm; F90.9 Attention-deficit hyperactivity disorder, unspecified type; F32.9 Major depressive disorder, single episode, unspecified; M79.81 Nontraumatic hematoma of soft tissue; M16.0 Bilateral primary osteoarthritis of hip; Z90.710 Acquired absence of both cervix and uterus; Z99.81 Dependence on supplemental oxygen; Z79.01 Long term (current) use of anticoagulants; Z87.891 Personal history of nicotine dependence; Z99.89 Dependence on other enabling machines and devices; Z98.890 Other specified postprocedural states; Z90.89 Acquired absence of other organs; Z88.8 Allergy status to other drugs, medicaments and biological substances; Z88.5 Allergy status to narcotic agent; Z79.899 Other long term (current) drug therapy; Z79.51 Long term (current) use of inhaled steroids; Z79.890 Hormone replacement therapy; Z87.19 Personal history of other diseases of the digestive system
CPT/HCPCS: 36415; 36600; 51798; 71045; 71250; 71260; 74018; 80048; 80053; 80162; 81001; 82803; 83735; 83880; 84100; 84439; 84443; 84484; 85025; 85379; 87502; 93005; 93010; 93306; 93308; 93970; 94640; 94660; 94667; 94668; 94762; 94799; 97110; 97162; 97166; 97530; A9270; J0780; J1160; J1815; J1940; J2405; J2919; J7512; Q9957; Q9967; U0002

== ENCOUNTER 2024-06-19 13:29 | Inpatient (IN) | payer OTHER ==
[2024-06-19] VITALS (16 sets, daily range): BP systolic 131–185; BP diastolic 74–129
[~2024-06-19] VITALS: Ht 175.3 cm; Wt 183.4 kg
[~2024-06-19 13:29] MED LIST changes: +ATORVASTATIN CA40 MG PO; +DAPAGLIFLOZIN5 MG PO; +DILTIAZEM 24HR240 M1 PO; +DOXAZOSIN MESYLA4 MG PO; +LANOXIN250 MCG PO; +LEVOFLOXACIN750 MG PO; +MOUNJARO12.5 MG/0. SQ; +TAMSULOSIN HCL0.4 MG PO; +TRELEGY ELLIPT1 EACH INH; +VARENICLINE1 EACH PO
[2024-06-19] MEDS ORDERED: ALBUTEROL/IPRATROPIUM 3 ML NEB INH PRN (14:00)
[2024-06-19 14:02] LABS: PH, VENOUS 7.396 (7.31-7.41)
[2024-06-19 14:20] LABS: BASOPHILS 0.9 % (0-2); EOSINOPHILS 0.5 % (0-6); HEMATOCRIT 33.2 % (35.0-50.0); HEMOGLOBIN 10.6 g/dL (12.0-18.0); LYMPHOCYTES 8.8 % (24-44); MCH 29.1 (27-36); MCHC 31.9 g/dl (30-36); MCV 91.5 fl (81-99); MONOCYTES 6.9 % (0-12); NEUTROPHILS 82.9 % (39-80); PLATELET COUNT 175 K/uL (140-440); RBC 3.63 M/ul (4.3-5.7); RDW 21.8 (10.5-15.0)
[2024-06-19 14:38] LABS: ALBUMIN 3.7 g/dL (3.4-5.0); ALBUMIN/GLOBULIN RATIO 0.95 (1.1-2.4); ANION GAP 14.5 (7-21); BILIRUBIN, TOTAL 0.6 mg/dL (0.2-1.0); BUN/CREATININE RATIO 17.82 (6.0-28.6); CALCIUM 9.2 mg/dL (8.5-10.1); CREATININE, SERUM 1.01 mg/dL (0.55-1.02); MAGNESIUM 1.9 mg/dL (1.8-2.4); POTASSIUM 4.5 mmol/L (3.5-5.1); PROTEIN, TOTAL 7.6 g/dL (6.4-8.2)
[2024-06-19] MEDS ORDERED: FUROSEMIDE 40 MG/4 ML VIAL IV ONE (15:45)
[2024-06-19] MEDS ORDERED: ondansetron HCL 4 MG/2 ML VIAL IV PRN (16:15)
[2024-06-19] MEDS ORDERED: ACETAMINOPHEN 325 MG TAB PO PRN (16:15)
--- NOTE | 2024-06-19 17:14 | EKG ---
[facility] [address] [place] [address] Signed Atrial fibrillation with a competing junctional pacemaker Low voltage QRS Cannot rule out Anterior infarct (cited on or before 02-MAY-2024) Abnormal ECG When compared with ECG of 02-MAY-2024 16:02, Vent. rate has decreased BY 61 BPM Nonspecific T wave abnormality no longer evident in Anterior leads Confirmed by Isidro Cueto MD () on 06/19/2024 5:14:35 PM Electronically Signed By: ISIDRO CUETO MD 06/19/24 1714 PATIENT NAME: ELIZABETH ESTRELLA Electrocardiogram DATE OF : 58 PHYSICIAN: ISIDRO CUETO MD REPORT #: [id number] REPORT IS CONFIDENTIAL AND NOT TO BE RELEASED WITHOUT AUTHORIZATION
[2024-06-19] MEDS ORDERED: LEVOTHYROXINE300 MCG PO (17:32)
[2024-06-19] MEDS ORDERED: methylPREDNISolone SOD SUCC 40 MG/ML VIAL IV SCH (17:38)
[2024-06-19] MEDS ORDERED: DEXTROSE 5% 1,000 ML IV PRN (17:45)
[2024-06-19] MEDS ORDERED: DEXTROSE 50% 50 ML SYR IV PRN ×2 (17:45)
[2024-06-19] MEDS ORDERED: IBLOOD GLUCOSE TEST STRIP 1 EA TEST XX PRN (17:45)
[2024-06-19] MEDS ORDERED: GLUCAGON,HUMAN RECOMBINANT 1 MG/ML VIAL SUB-Q PRN (17:45)
--- NOTE | 2024-06-19 18:11 | NUR ---
pt TRANSFERRED FROM ER TO ROOM 126 WITH RT DOMENIC AND RN. 5PA TO TRANSFER WITH SLIDE BOARD TO HOSPITAL BED. pt ON BIPAP. FRIEND/CAREGIVER APRYL IN ROOM, BROUGHT TRILOGY IN FOR pt. PHONE COLLATERAL CLERK NOW IN ROOM. pt ALERT, ANSWERING ALL QUESTIONS FOR ADMISSION, MED REC. PRIMARY RN AJ IN ROOM ASSESSING pt. CALL LIGHT PROVIDED AND IN LAP, ORIENTATION TO ROOM PROVIDED. pt DENIES NEEDS.
--- NOTE | 2024-06-19 18:53 | NUR ---
IN ROOM FOR MEDICATION ADMINISTRATION. pt REQUESTING TO EAT. SOB WITH 6L OXYGEN BY NC IN PLACE, SPO2 DROPS TO 84-85% WHILE EATING, LABORED BREATHING. SWITCHED TO 6L OXYMASK, SPO2 INCREASES TO 89-90%. ENSURE PROVIDED, pt DRINKS ENTIRE ENSURE, NO SOB NOTED. OXYMASK IN PLACE. CALL LIGHT AND PERSONAL SUPPLIES IN REACH.
--- NOTE | 2024-06-19 19:50 | NUR ---
dr castaneda here aware of pt vitals and updates. will review pt meds. pt resting with call light.
[2024-06-19] MEDS ORDERED: BUDESONIDE 0.5 MG/2 ML VIAL INH SCH (20:00)
[2024-06-19] MEDS ORDERED: ALBUTEROL/IPRATROPIUM 3 ML NEB INH SCH (20:00)
[2024-06-19] MEDS ORDERED: IBLOOD GLUCOSE TEST STRIP 1 EA TEST VI SCH (21:00)
[2024-06-19] MEDS ORDERED: APIXABAN 5 MG TAB PO SCH (21:00)
[2024-06-19] MEDS ORDERED: INSULIN LISPRO 100 UNIT/ML ML SUB-Q SCH (21:00)
--- NOTE | 2024-06-19 21:48 | NUR ---
rt in room with rn and pt, mask removed for po med and face wash. pt denies needs, or pain meds. desats to low 80's with cares, returned to 91% with bipap. call light in reach.
[2024-06-19] MEDS ORDERED: hydrALAZINE HCL 20 MG/ML VIAL IV PRN (22:15)
[2024-06-20] VITALS (15 sets, daily range): BP systolic 122–171; BP diastolic 61–105
--- NOTE | 2024-06-20 01:18 | NUR ---
pt eyes closed, bipap on, resp even, hr 83 - call light in reach.
[2024-06-20 05:35] LABS: BASOPHILS 0.5 % (0-2); HEMATOCRIT 32.2 % (35.0-50.0); HEMOGLOBIN 10.5 g/dL (12.0-18.0); LYMPHOCYTES 7.1 % (24-44); MCH 29.5 (27-36); MCHC 32.5 g/dl (30-36); MCV 90.6 fl (81-99); MONOCYTES 2.2 % (0-12); NEUTROPHILS 90.2 % (39-80); PLATELET COUNT 178 K/uL (140-440); RBC 3.56 M/ul (4.3-5.7); RDW 21.4 (10.5-15.0)
[2024-06-20 06:08] LABS: ALBUMIN 3.2 g/dL (3.4-5.0); ALBUMIN/GLOBULIN RATIO 0.91 (1.1-2.4); ANION GAP 10.4 (7-21); BILIRUBIN, TOTAL 0.5 mg/dL (0.2-1.0); BUN/CREATININE RATIO 21.68 (6.0-28.6); CALCIUM 9.3 mg/dL (8.5-10.1); CREATININE, SERUM 0.83 mg/dL (0.55-1.02); MAGNESIUM 1.9 mg/dL (1.8-2.4); PHOSPHORUS, INORGANIC 3.5 mg/dL (2.5-4.9); POTASSIUM 4.4 mmol/L (3.5-5.1); PROTEIN, TOTAL 6.7 g/dL (6.4-8.2); TSH, 3RD GENERATION 9.781 uIU/mL (0.358-3.740)
--- NOTE | 2024-06-20 08:38 | NUR ---
CBG taken, SS insulin administered. Pt sits at EOB with max assistance, O2 demands increase to 10L on OM, once recovered to 91%, attempted to use NC to allow patient to eat breakfast and PO meds. Pt sat drops to 86%. Replaced OM. Lungs diminished but overall clear. HR increases to 145 with exertion.
--- NOTE | 2024-06-20 08:50 | NUR ---
Call light answered, patient requests to lie down. During position change patient sat drops to 75%. Bipap replaced and pt returns to 90%. Breakfast cleared, 90% eaten. No further needs at this time. Call light in reach.
[2024-06-20] MEDS ORDERED: ENOXAPARIN SODIUM 40 MG/0.4 ML SYR SUB-Q SCH (09:00)
[2024-06-20] MEDS ORDERED: DIGOXIN 250 MCG TAB PO SCH (09:00)
[2024-06-20] MEDS ORDERED: dilTIAZem HCL 240 MG CAPCR PO SCH (09:00)
--- NOTE | 2024-06-20 09:54 | NUR ---
UR CLINICAL REVIEW: [facility]-PER [facility] REVIEW MEETS INPT FOR CHF WITH NEEDED FOR BIPAP ODS [facility] 06/19/24 @ 0486 ORDER MATCHES REG CLINICALS FAXED TO [facility] FOR AUTH REVIEW DISCHARGE TO HOME WHEN STABLE 06/22/24
[2024-06-20] MEDS ORDERED: FLUOXETINE HCL 20 MG CAP PO SCH (10:13)
[2024-06-20] MEDS ORDERED: FUROSEMIDE 40 MG/4 ML VIAL IV SCH (10:24)
--- NOTE | 2024-06-20 10:54 | NUR ---
VISITED DURING SPIRITUAL CARE ROUNDS. PT APPEARED TO BE SLEEPING. DID NOT DISTURB. PROVIDED PRAYER.
[2024-06-20] MEDS ORDERED: PHARMACY RENAL DOSE ADJUSTMENT 1 DOSE MISC PO SCH (12:00)
--- NOTE | 2024-06-20 12:31 | NUR ---
Patient up to chair with bipap, then placed on HF NC at 15L while patient eating lunch, spo2 between 85%-89% at this time. HR up to 130s. Pt able to stand and pivot to chair. Clean attends in place. Bed linens changed. SS insulin and scheduled medications administered. Pt has no other needs at this time.
--- NOTE | 2024-06-20 13:00 | NUR ---
Spoke with Jaylyn briefly. She has Bipap in place. She denies any changes since her last admit. Cont. with the same DME and friends who live with her and assist her. She denies needs. I will fu with her when she does not require her Bipap during the day.
--- NOTE | 2024-06-20 13:15 | NUR ---
In room to clear lunch tray, noted that patient had notably large incontinent urine in chair and significant puddling on the floor. Room cleaned and patient provided with extensive bed bath, fresh attends and new purewick device. Back to bed at this time with bipap in place. Pt denies needs at this time. Call light in reach. CM in room to assess patient needs.
[2024-06-20] MEDS ORDERED: VARENICLINE TART1 MG PO (14:19)
[2024-06-20] MEDS ORDERED: ELIQUIS5 MG PO (14:22)
--- NOTE | 2024-06-20 16:30 | NUR ---
Pt caregiver in room, given update on patient, all questions answered at this time. Emptied 700ml yellow urine from purewick container.
--- NOTE | 2024-06-20 17:10 | NUR ---
CBG checked, patient resting in bed with bipap in place, no resp distress at this time. Temp axillary 99.2. Pt asymptomatic at this time.
[2024-06-20] MEDS ORDERED: TORSEMIDE20 MG PO (18:20)
--- NOTE | 2024-06-20 18:21 | NUR ---
MED REC COMPLETE
--- NOTE | 2024-06-20 19:04 | NUR ---
Patient calls and asks to be put back on to bipap. Pt stable spo2 at this time, 94%, no resp distress. VSS. Pt denies needs. 600 yellow urine emptied from purewick container. Call light in reach.
--- NOTE | 2024-06-20 19:45 | NUR ---
HANDOFF REPORT RECEIVED FROM DAY SHIFT RN. PATIENT RESTING AWAKE IN BED. NO DISTRESS NOTED. PATIENT HAS NO NEEDS AT THIS TIME. CALL LIGHT IN REACH.
--- NOTE | 2024-06-20 20:56 | NUR ---
PATIENT ASSESSMENT COMPLETE. PATIENT REMAINS ON BIPAP 16/8 45% FIO2. PATIENT SPO2 92%. PATIENT DENIES FEELING ANY NAUSEA OR PAIN AT THIS TIME. PATIENT HAS PUREWICK IN PLACE, DRAINING CLEAR YELLOW URINE. PATIENT NOTED TO HAVE LOWER EXTREMITY SWELLING. PATIENT UPDATED ON PLAN OF CARE FOR THE NIGHT. NO NEEDS AT THIS TIME. PATIENT HAS CALL LIGHT IN REACH.
--- NOTE | 2024-06-20 22:27 | NUR ---
patient resting in bed wih eyes closed, RR 18. patient remains on BIPAP, settings unchanged. no distress noted. patient has call light in reach.
[2024-06-21] VITALS (13 sets, daily range): BP systolic 123–161; BP diastolic 56–87
--- NOTE | 2024-06-21 00:30 | NUR ---
PATIENT ASSESSMENT COMPLETE. NO NEW CHANGES AT THIS TIME. PATIENT REMAINS ON BIPAP, TOLERATING WELL. PATIENT HAS NO NEEDS AT THIS TIME. CALL LIGHT IN REACH. VSS.
--- NOTE | 2024-06-21 02:33 | NUR ---
PATIENT USES CALL LIGHT AND STATES "IM WET". PATIENT IV OUT AND LAYING IN THE BED. SITE CLEANED, COBAND AND GAUZE APPLIED. IV TIP INTACT. PATIENT PROVIDED WITH NEW GOWN AND LINEN. NEW 20G IV STARTED IN PATIENT HAND. PATIENT TOLERATED WELL. PATIENT REPOSITIONED IN BED. NO FURTHER NEEDS AT THIS TIME. CALL LIGHT IN REACH.
--- NOTE | 2024-06-21 04:02 | NUR ---
PATIENT RESTING IN BED WITH EYES CLOSED, RR 20. PATIENT REMAINS ON BIPAP, TOLERATING WELL. VITAL SIGNS STABLE. ALLOWING PATIENT TO REST AT THIS TIME. PATIENT HAS CALL LIGHT IN REACH.
--- NOTE | 2024-06-21 04:27 | NUR ---
PATIENT USED CALL LIGHT FOR ASSISTANCE WITH BIPAP. PATIENT DENIES ANY FURTHER NEEDS AT THIS TIME. CALL LIGHT IN REACH.
[2024-06-21 05:34] LABS: BASOPHILS 0.3 % (0-2); HEMATOCRIT 32.2 % (35.0-50.0); HEMOGLOBIN 10.4 g/dL (12.0-18.0); LYMPHOCYTES 10.4 % (24-44); MCH 29.4 (27-36); MCHC 32.4 g/dl (30-36); MCV 90.6 fl (81-99); MONOCYTES 8.5 % (0-12); NEUTROPHILS 80.8 % (39-80); PLATELET COUNT 194 K/uL (140-440); RBC 3.56 M/ul (4.3-5.7); RDW 21.2 (10.5-15.0)
[2024-06-21 05:54] LABS: ALBUMIN 3.2 g/dL (3.4-5.0); ALBUMIN/GLOBULIN RATIO 0.97 (1.1-2.4); ANION GAP 9.1 (7-21); BILIRUBIN, TOTAL 0.4 mg/dL (0.2-1.0); BUN/CREATININE RATIO 28.04 (6.0-28.6); CALCIUM 9.1 mg/dL (8.5-10.1); CREATININE, SERUM 0.82 mg/dL (0.55-1.02); POTASSIUM 4.1 mmol/L (3.5-5.1); PROTEIN, TOTAL 6.5 g/dL (6.4-8.2)
--- NOTE | 2024-06-21 06:05 | NUR ---
PATIENT REMAINS ON BIPAP TOLERATING WELL. PUREWICK CANNISTER EMPTIED. PATIENT DENIES PAIN AT THIS TIME AND STATES SHE IS COMFORTABLE. PATIENT HAS NO NEEDS AT THIS TIME. CALL LIGHT IN REACH.
--- NOTE | 2024-06-21 07:53 | NUR ---
Report received from night auditor RN. RT recommends patient remain on bipap at this time until breakfast/med pass. Patient has no needs at this time, call light in reach.
--- NOTE | 2024-06-21 08:45 | NUR ---
Patient resting after breakfast with bipap in place. Even and unlabored RR with no needs at this time. Call light in reach
--- NOTE | 2024-06-21 10:15 | NUR ---
Patient works with PT/OT and is able to transfer to the chair on 15L NC. New purewick catheter in place. Room tidied and bed linen changed. Fresh water provided.
--- NOTE | 2024-06-21 11:14 | NUR ---
VISITED DURING SPIRITUAL CARE ROUNDS. PT APPEARED TO BE SLEEPING. DID NOT DISTURB. PROVIDED PRAYER.
--- NOTE | 2024-06-21 12:15 | NUR ---
Patient caregiver/friend Enriqueta provided with bedside update. patient is back to bed at this time with the bipap in place. Pt declines lunch at this time d/t bipap use and wanting to rest. No needs at this time. Call light in reach.
--- NOTE | 2024-06-21 13:10 | NUR ---
Pt sleeping with Bipap in place. Not awakened. Received update from Dr. Hodgson. No needs from CM at this time.
--- NOTE | 2024-06-21 14:45 | NUR ---
Rounded on patient who is resting in bed with eyes closed, even and unlabored respirations on bipap. Purewick in place, emptied 950 from cannister. No needs identified at this time. Call light in reach.
--- NOTE | 2024-06-21 17:20 | NUR ---
CBG checked, SS insulin provided, dinner tray to patient. Currently on 10L via HFNC and spo2 87-91%. Pt states has no needs at this time, feels as if status is improving overall. Call light in reach.
[2024-06-21 18:11] LABS: THYROXINE FREE 0.8 ng/dL (0.9-1.7)
--- NOTE | 2024-06-21 19:42 | NUR ---
ELIZABETH IS ON THE V60 BIPAP 25/11, R: 12, I-TIME: 0.9, RISE: 3, FIO2: 40%, SHE I S LAYING IN BED WITH THE HOB AT 20 DEGREES
--- NOTE | 2024-06-21 19:45 | NUR ---
handoff report received from day shift RN. patient resting in bed with eyes closed. patient on BIPAP, tolerating well. no needs at this time. call light in reach.
--- NOTE | 2024-06-21 20:40 | NUR ---
PATIENT ASSESSMENT COMPLETE. PATIENT REMAINS ON BIPAP 16/8 40% FIO2. PATIENT TOLERATING WELL, SPO2 92%. PATIENT HAS PUREWICK IN PLACE. PATIENT IV SITE WNL AND SALINE LOCKED. PATIENT DENIES ANY PAIN OR NAUSEA AT THIS TIME. PATIENT DENIES ANY NEEDS AT THIS TIME. CALL LIGHT IN REACH.
[2024-06-21] MEDS ORDERED: POLYETHYLENE GLYCOL 3350 1 PACKET PO SCH (21:00)
[2024-06-21] MEDS ORDERED: SENNOSIDES/DOCUSATE 1 EA TAB PO SCH (21:00)
--- NOTE | 2024-06-21 21:07 | NUR ---
PATIENT REPOSITIONED IN BED. PATIENT PROVIDED WITH FRESH ICE WATER. PATIENT HAS NO FURTHER NEEDS AT THIS TIME. CALL LIGHT IN REACH.
--- NOTE | 2024-06-21 23:30 | NUR ---
PATIENT RESTING IN BED WITH EYES CLOSED, RR 16. NO ACUTE DISTRESS NOTED. PATIENT REMAINS ON BIPAP, TOLERATING WELL. NO NEEDS AT THIS TIME CALL LIGHT IN REACH.
[2024-06-22] VITALS (9 sets, daily range): BP systolic 112–156; BP diastolic 61–80
[2024-06-22] MEDS ORDERED: ALBUTEROL SULFATE 0.083% 3 ML VIAL INH PRN (00:30)
--- NOTE | 2024-06-22 01:15 | NUR ---
patient resting in bed with eyes closed, respirations even and unlabored. patient remains on BIPAP, tolerating well. no acute distress noted. patient has call light in reach.
--- NOTE | 2024-06-22 03:05 | NUR ---
PATIENT RESTING WITH EYES CLOSED, RR 17. PATIENT REMAINS ON BIPAP, TOLERATING WELL. NO ACUTE DISTRESS NOTED. PATIENT HAS CALL LIGHT IN REACH.
--- NOTE | 2024-06-22 03:43 | NUR ---
ELIZABETH IS ASLEEP WITH THE V60 BIPAP W/HOB ELEVATED.
--- NOTE | 2024-06-22 05:30 | NUR ---
patient resting with eyes closed, RR 18. patient remain on BIPAP, settings unchanged. no needs at this time. call light in reach.
[2024-06-22 05:33] LABS: BASOPHILS 0.2 % (0-2); EOSINOPHILS 0.1 % (0-6); HEMATOCRIT 33.3 % (35.0-50.0); HEMOGLOBIN 10.7 g/dL (12.0-18.0); LYMPHOCYTES 10.9 % (24-44); MCH 29.1 (27-36); MCHC 32.1 g/dl (30-36); MCV 90.5 fl (81-99); MONOCYTES 8.4 % (0-12); NEUTROPHILS 80.4 % (39-80); PLATELET COUNT 195 K/uL (140-440); RBC 3.68 M/ul (4.3-5.7); RDW 21.6 (10.5-15.0)
[2024-06-22 05:56] LABS: ALBUMIN 3.2 g/dL (3.4-5.0); ANION GAP 9.1 (7-21); BILIRUBIN, TOTAL 0.4 mg/dL (0.2-1.0); BUN/CREATININE RATIO 30.58 (6.0-28.6); CALCIUM 8.7 mg/dL (8.5-10.1); CREATININE, SERUM 0.85 mg/dL (0.55-1.02); POTASSIUM 4.1 mmol/L (3.5-5.1); PROTEIN, TOTAL 6.4 g/dL (6.4-8.2); TSH, 3RD GENERATION 16.49 uIU/mL (0.358-3.740)
[2024-06-22] MEDS ORDERED: BUDESONIDE 0.5 MG/2 ML VIAL INH SCH (08:00)
--- NOTE | 2024-06-22 08:00 | NUR ---
REPORT RECIVED FROM TOBACCO DIPPER RN. PATIENT RESTING IN BED ON BIPAP AT THIS TIME. PATIENT CALLS APPROPRIATELY. CALL LIGHT IN REACH.
[2024-06-22] MEDS ORDERED: LEVOTHYROXINE SODIUM 150 MCG TAB PO SCH (09:00)
--- NOTE | 2024-06-22 11:00 | NUR ---
ot in to work with patient. patient up to the chair and tolerated well. patients hr did elevate with activity, but quickly returned to normal. patient now sitting up in the chair.
--- NOTE | 2024-06-22 11:30 | NUR ---
Spoke with Jaylyn. She is sitting up in a chair. She has her trilogy from home. Discussed where she would like to go when she discharges. She does not want to return to a SNF. Pt plans on returning to home with assist from her roommates.
--- NOTE | 2024-06-22 12:51 | NUR ---
PATIENT SITTING UP IN THE CHAIR. BLOOD SUGAR CHECKED AND INSULIN GIVEN. FOOD PROVIDED. PATIENTS ROMATE AT THE [id number] VISITING. PATIENT ON 7L NC AT THIS TIME. CALL LIGHT IN REACH. [employer] CANISTER EMPTIED.
[2024-06-22] MEDS ORDERED: FUROSEMIDE 40 MG/4 ML VIAL IV SCH (13:00)
--- NOTE | 2024-06-22 14:00 | NUR ---
Notified by PT, pt is interested in [facility] rehab in [place]. I will get the paperwork for a referral. Pt has [facility] and will have transport through [facility] if needed.
--- NOTE | 2024-06-22 15:27 | NUR ---
UR CONCURRENT REVIEW: [facility]- DOES NOT MEET GL DAY 2 DUE TO OXYGEN DEMAND; VIARANCE COMPLETE [facility] INPT 06/19/24 AUTH#[id number]. UPDATED CLINICALS FACED TO [facility] FOR REVIEW DISCHARGE TO HOME WHEN STABLE 06/24/24
--- NOTE | 2024-06-22 18:01 | NUR ---
PATIENT UP TO THE BEDSIDE CHAIR WITH ONLY LINE MANAGEMENT. WHEN ASKED HOW SHE FEELS TO HER NORMAL BASELINE PATIENT STATES "THIS IS ABOUT MY NORMAL FOR ACTIVITY TOLERANCE. PATIENT UP NOW EATING. URINE CANISTER EMPTIED. CALL LIGHT IN REACH.
--- NOTE | 2024-06-22 19:10 | NUR ---
REPORT RECEIVED FROM FUNMILAYO JONES. PATIENT SITTIN UP IN CHAIR. ATE 100% OF SUPPER. DENIES NEEDS. CALL LIGHT IN REACH.
--- NOTE | 2024-06-22 19:54 | NUR ---
PARTIAL LINEN CHANGE COMPLETED. ASSISTED PATIENT FROM CHAIR TO BED. VS CHARTED. IV FLUSHED AND PATENT WITH BLOOD RETURN. PATIENT DENIES PAIN. PLAN OF CARE REVIEWED FOR SHIFT, DENIES QUESTIONS OR CONCERNS. CALL LIGHT IN REACH.
--- NOTE | 2024-06-22 20:28 | NUR ---
ELIZABETH IS AWAKE IN BED ON AN 8L SALTER NC W/HOB ELEVATED TO 30 DEGREES.
--- NOTE | 2024-06-22 20:34 | NUR ---
RT IN ROOM ADMINISTERING BREATHING TREATMENT AND EDUCATION. INFORMED PATIENT THIS RN WILL BE BACK WHEN BREATHING TX COMPLETE FOR HS MEDICATION.
--- NOTE | 2024-06-22 20:57 | NUR ---
HS MEDICATIONS GIVEN. DENTURES CLEANED AND SOAKING. JAY CARE COMPLETED AND NEW PUREWICK IN PLACE. ASSISTED PATIENT WITH PLACING HOME TRILOGY. PATIENT REQUESTS LIGHTS OUT AND TO REST. EXPLAINED SHE IS CCU STATUS AND THIS RN WILL RE-ASSESS THROUGHOUT SHIFT BUT WILL MAKE EFFORTS TO GROUP CARES TO PROMOTE REST. PATIENT PLEASANT AND AGREEABLE. CALL LIGHT AND PERSONAL ITEMS IN REACH.
--- NOTE | 2024-06-22 22:32 | NUR ---
PUREWICK CANISTER EMPTIED FOR 450ML YELLOW URINE. TRILOLGY REMAINS IN WITH 5L. RT IN ROOM TO ASSIST WITH MASK AIR LEAK NOTED. PATIENT DENIES NEEDS AT THIS TIME. CALL LIGHT IN REACH.
--- NOTE | 2024-06-22 22:50 | NUR ---
ELIZABETH'S MASK THAT WAS ON HER HOME UNIT WHISTLED TO EAR PEIRCING EXTREMES. RT ATTEMPTED TO ADJUST MASK TO ELIMINATE OR REDUCE WHISTLE TO NO AVAIL. RT RETRIEVED A NEW BUNNY FACE MASK FOR ELIZABETH AND ADJUSTED TO FIT.
--- NOTE | 2024-06-22 23:55 | NUR ---
PATIENT WAKES TO RT AND THIS RN IN ROOM BUT CLOSES EYES DURING INTERVENTION. DENIES PAIN. PUREWICK CHECKED AND IN PLACE. ASSESSMENT CHARTED. PATIENT REMAINS RESTING IN BED WITH TRILOGY ON WITH 5L O2. O2 SATS AT REST 93%. PATIENT CONTINUES IN AFIB WITH RATES 70S-HIGH 80S. CALL LIGHT IN REACH.
[2024-06-23] VITALS: BP 126/61
[2024-06-23] MEDS ORDERED: ALBUTEROL/IPRATROPIUM 3 ML NEB INH SCH
--- NOTE | 2024-06-23 00:47 | NUR ---
PATIENT RESTING QUIETLY WITH EYES CLOSED, RESPIRATIONS EVEN AND UNLABORED; RR 19. O2 SAT 92% ON TRILOGY. RT HAD DECREASED OXYGEN BLEED IN TO 3L FROM 5L. CALL LIGHT IN REACH.
--- NOTE | 2024-06-23 01:56 | NUR ---
PATIENT RESTING IN BED WITH EYES CLOSED. TRILOGY REMAINS ON WITH 3L O2 BLED IN. O2 SAT 91%. CALL LIGHT IN REACH.
--- NOTE | 2024-06-23 03:15 | NUR ---
PATIENT CONTINUES TO REST IN BED WITH EYES CLOSED. RESPIRATIONS EVEN AND UNLABORED. CALL LIGHT IN REACH.
--- NOTE | 2024-06-23 05:12 | NUR ---
PATIENT WAKES TO NAME. O2 SAT NOTED TO DECREASE TO 87%. INCREASED O2 FLOW BACK TO 5L. LUNG SOUNDS DIMINISHED. PATIENT DENIES PAIN. CALL LIGHT IN REACH.
[2024-06-23 05:28] LABS: BASOPHILS 0.3 % (0-2); EOSINOPHILS 0.1 % (0-6); HEMATOCRIT 33.4 % (35.0-50.0); HEMOGLOBIN 10.9 g/dL (12.0-18.0); LYMPHOCYTES 13.3 % (24-44); MCH 29.4 (27-36); MCHC 32.7 g/dl (30-36); MCV 89.8 fl (81-99); MONOCYTES 9.9 % (0-12); NEUTROPHILS 76.4 % (39-80); PLATELET COUNT 199 K/uL (140-440); RBC 3.72 M/ul (4.3-5.7); RDW 21.5 (10.5-15.0)
[2024-06-23 05:50] LABS: ALBUMIN 3.3 g/dL (3.4-5.0); ALBUMIN/GLOBULIN RATIO 1.06 (1.1-2.4); ANION GAP 10.8 (7-21); BILIRUBIN, TOTAL 0.4 mg/dL (0.2-1.0); BUN/CREATININE RATIO 29.78 (6.0-28.6); CALCIUM 8.8 mg/dL (8.5-10.1); CREATININE, SERUM 0.94 mg/dL (0.55-1.02); POTASSIUM 3.8 mmol/L (3.5-5.1); PROTEIN, TOTAL 6.4 g/dL (6.4-8.2)
[2024-06-23 06:00] VITALS: BP 129/71
--- NOTE | 2024-06-23 06:44 | NUR ---
PATIENT RESTING IN BED WITH EYES CLOSED. REMAINS ON TRILOGY WITH 5L O2 BLEED IN. CALL LIGHT IN REACH.
[2024-06-23 08:00] VITALS: BP 142/82
--- NOTE | 2024-06-23 08:00 | NUR ---
REPORT RECIVED FROM SWEATER OPERATOR RN. PATIENT ON HOME TRILOGY WITH 5L OXYGEN BLEED IN. PATIENT CALLS APPROPRIATELY. PUREWICK IN PLACE. NO OTHER NEEDS A THIS TIME.
[2024-06-23] MEDS ORDERED: predniSONE 20 MG TAB PO SCH (09:00)
--- NOTE | 2024-06-23 09:45 | NUR ---
PATIENT UP TO THE CHAIR AND TOLERATED WELL. PATIENT EATING BREKFAST AND MEDICATIONS GIVEN. MD IN TO SEE PATIENT THIS AM AND DISCUSSED PLAN OF CARE WITH PATIENT AND DC HOME TODAY. PATIENT AGREEABLE TO PLAN AND FEELS LIKE SHE IS AT HER BASELINE. CALL LIGHT IN REACH AND DENIES ANY OTHER NEEDS AT THIS TIME.
[2024-06-23] MEDS ORDERED: PREDNISONE20 MG PO (11:19)
[2024-06-23] MEDS ORDERED: SOAANZ40 MG PO ×2 (11:20→11:21)
[2024-06-23] MEDS ORDERED: POTASSIUM CHLO20 ME1 PO (11:23)
--- NOTE | 2024-06-23 11:40 | NUR ---
Spoke with Jaylyn. She denies needs. Friend will drive her home. Updated. Dr. Keith completed paperwork for Cardiopulm rehab in [place]. I will fax her chart to them. [id number] faxed to [facility] Cardiopulm rehab program.
--- NOTE | 2024-06-23 11:58 | NUR ---
VISITED DURING SPIRITUAL CARE ROUNDS. PT APPEARED TO BE SLEEPING. DID NOT DISTURB. PROVIDED PRAYER.
[2024-06-23 12:45] VITALS: BP 158/66
== END 2024-06-23 13:23 | disposition home or self-care (01) | DRG 189 ==
LOC: ED 13:29 → CCU 16:19
PROVIDERS: Emergency Medicine; ADMIT Family Medicine; ATTEND Family Medicine
PROC: 5A09357 Assistance with Respiratory Ventilation, Less than 24 Consecutive Hours, Continuous Positive Airway Pressure (ICD-10-PCS; principal; 2024-06-19)
PROC: 5A0935A Assistance with Respiratory Ventilation, Less than 24 Consecutive Hours, High Flow/Velocity Cannula (ICD-10-PCS; 2024-06-22)
DX: J96.21 Acute and chronic respiratory failure with hypoxia (principal); I50.33 Acute on chronic diastolic (congestive) heart failure; J44.1 Chronic obstructive pulmonary disease with (acute) exacerbation; I48.20 Chronic atrial fibrillation, unspecified; E66.2 Morbid (severe) obesity with alveolar hypoventilation; E11.9 Type 2 diabetes mellitus without complications; K21.9 Gastro-esophageal reflux disease without esophagitis; E03.9 Hypothyroidism, unspecified; Z96.641 Presence of right artificial hip joint; I11.0 Hypertensive heart disease with heart failure; F90.9 Attention-deficit hyperactivity disorder, unspecified type; F39 Unspecified mood [affective] disorder; K58.9 Irritable bowel syndrome, unspecified; F32.A Depression, unspecified; F14.10 Cocaine abuse, uncomplicated; J44.89 Other specified chronic obstructive pulmonary disease; F12.10 Cannabis abuse, uncomplicated; F17.210 Nicotine dependence, cigarettes, uncomplicated; Z96.642 Presence of left artificial hip joint; Z99.89 Dependence on other enabling machines and devices; Z99.81 Dependence on supplemental oxygen; Z90.710 Acquired absence of both cervix and uterus; Z90.89 Acquired absence of other organs; Z88.5 Allergy status to narcotic agent; Z88.8 Allergy status to other drugs, medicaments and biological substances; Z79.51 Long term (current) use of inhaled steroids; Z79.890 Hormone replacement therapy; Z79.01 Long term (current) use of anticoagulants; Z79.899 Other long term (current) drug therapy
CPT/HCPCS: 36415; 71045; 80053; 82803; 83735; 83880; 84100; 84439; 84443; 84484; 85025; 93005; 93010; 94640; 94660; 94762; 94799; 96374; 97162; 97166; 97530; 99285-25; J1815; J1940; J2919; J7512